=== PATIENT | male | born 1935 | race Caucasian/White ===

== ENCOUNTER → 2018-10-30 | Outpatient (CLI) | payer MEDICARE, OTHER ==
[~2018-10-30] MED LIST: AMLO10TA7 PO; APIX2.5T PO; ASPI-586 PO; ATOR80TA76 PO; CETI10TA20 PO; CLOP75TA28 PO; DIGO250T15 PO; DILT240C90 PO; FLUT16SP22 NSEACH; FLUT1DIS28 IH; HCTZ; LISI10TA; LORA-405 PO; LOSA100T3 PO; LOSA50TA63 PO; LUBI24CA6; METO-370 PO; NITR-65 PO; NITR100C10 PO; OMEP20TA7 PO; POTA10TA36 PO; RT-ALBUINH IH; TAMS0.4C2 PO; TEST5GEL6; TESTOSTERONE TP; TRIA1CAP4 PO
[2018-10-30 12:11] LABS: BUN/CREATININE RATIO 15; CREATININE SERUM 1.03 MG/DL (0.60-1.30); GFR ESTIMATED > 60
--- NOTE | 2018-10-30 13:41 | Diagnostic Imaging Report ---
PROCEDURE: CT chest without contrast. TECHNIQUE: Multiple contiguous axial images were obtained through the chest without the use of intravenous contrast. Auto Exposure Controls were utilized during the CT exam to meet ALARA standards for radiation dose reduction. INDICATION: Asthma and COPD as well as pleural effusion. COMPARISON: Correlation is made with prior chest CT from 12/21/2015. FINDINGS: No definite axillary lymphadenopathy is seen. Hilar and mediastinal evaluation is somewhat limited due to lack of intravenous contrast. Normal-sized lymph nodes in the mediastinum are seen. There are coronary arterial calcifications present. No pericardial fluid is detected. There is a very small left pleural effusion. No right-sided pleural effusion is seen. Lungs are clear. No infiltrates are seen. No parenchymal nodules or masses are detected. Upper abdomen is unremarkable. IMPRESSION: Small left pleural effusion. The study is otherwise unremarkable. Dictated by: Dictated on workstation # [id number]
== END ==
LOC: RAD 11:43
PROVIDERS: ATTEND Nurse Practitioner Family
DX: J90 Pleural effusion, not elsewhere classified (principal); J30.9 Allergic rhinitis, unspecified; J44.9 Chronic obstructive pulmonary disease, unspecified; E66.9 Obesity, unspecified
CPT/HCPCS: 36415; 71250; 82565; 84520

== ENCOUNTER → 2018-12-21 | Outpatient (CLI) | payer MEDICARE, OTHER ==
[~2018-12-21] MED LIST changes: +RT-ALBUTEROL SULF 2.5 MG/3 ML PRE-MIX VIAL INH ONE
== END ==
LOC: RT 12:29
PROVIDERS: ATTEND Nurse Practitioner Family
DX: J44.9 Chronic obstructive pulmonary disease, unspecified (principal); E66.9 Obesity, unspecified; J90 Pleural effusion, not elsewhere classified; J30.9 Allergic rhinitis, unspecified
CPT/HCPCS: 94060; 94726; 94729

== ENCOUNTER → 2019-03-30 | Outpatient (CLI) | payer MEDICARE ==
[~2019-03-30] MED LIST changes: -RT-ALBUTEROL SULF 2.5 MG/3 ML PRE-MIX VIAL INH ONE
== END ==
LOC: RAD 13:41
PROVIDERS: ATTEND Internal Medicine Cardiovascular Disease
DX: I70.213 Atherosclerosis of native arteries of extremities with intermittent claudication, bilateral legs (principal); I25.10 Atherosclerotic heart disease of native coronary artery without angina pectoris; I65.29 Occlusion and stenosis of unspecified carotid artery; E78.5 Hyperlipidemia, unspecified; I10 Essential (primary) hypertension; I48.0 Paroxysmal atrial fibrillation
CPT/HCPCS: 93923

== ENCOUNTER → 2020-01-11 | Outpatient (CLI) | payer MEDICARE ==
[~2020-01-11] MED LIST changes: -CETI10TA20 PO; +CETI10TA21 PO; -METO-370 PO; +METO50TA7 PO
== END ==
LOC: RAD 12:15
PROVIDERS: ATTEND Nurse Practitioner Family
DX: J90 Pleural effusion, not elsewhere classified (principal); I48.0 Paroxysmal atrial fibrillation; J30.9 Allergic rhinitis, unspecified; J44.9 Chronic obstructive pulmonary disease, unspecified

== ENCOUNTER 2020-06-22 11:26 | Inpatient (IN) | payer MEDICARE ==
[~2020-06-22] VITALS: Ht 172.7 cm; Wt 81.6 kg
[~2020-06-22 11:26] MED LIST changes: +AMLO-251 PO; -AMLO10TA7 PO; -CETI10TA21 PO; +CETI10TA49 PO
[2020-06-22 12:27] LABS: BASOPHILS % (AUTO) 0 % (0-10); EOSINOPHILS % (AUTO) 0 % (0-10); HEMATOCRIT 38 % (40-54); HEMOGLOBIN 12.6 g/dL (13.3-17.7); LYMPHOCYTES # (AUTO) 0.6 10^3/uL (1.0-4.0); LYMPHOCYTES % (AUTO) 11 % (12-44); MEAN CORPUSCULAR HEMOGLOBIN 29 pg (25-34); MEAN CORPUSCULAR HGB CONC 34 g/dL (32-36); MEAN CORPUSCULAR VOLUME 87 fL (80-99); MEAN PLATELET VOLUME 10.6 fL (9.0-12.2); MONOCYTES # (AUTO) 0.3 10^3/uL (0.0-1.0); MONOCYTES % (AUTO) 6 % (0-12); NEUTROPHILS # (AUTO) 4.6 10^3/uL (1.8-7.8); NEUTROPHILS % (AUTO) 83 % (42-75); PLATELET COUNT 155 10^3/uL (130-400); WHITE BLOOD COUNT 5.6 10^3/uL (4.3-11.0)
[2020-06-22 12:28] LABS: BILIRUBIN,URINE NEGATIVE (NEGATIVE); CLARITY,URINE CLEAR; COLOR,URINE YELLOW; GLUCOSE, URINE (UA) NEGATIVE (NEGATIVE); KETONES,URINE 1+ (NEGATIVE); LEUKOCYTE ESTERASE ,URINE NEGATIVE (NEGATIVE); NITRITE,URINE NEGATIVE (NEGATIVE); PROTEIN,URINE 2+ (NEGATIVE)
[2020-06-22 12:35] LABS: BACTERIA,URINE FEW /HPF; RBC,URINE 0-2 /HPF; SQUAMOUS EPITHELIAL CELL,UR 0-2 /HPF; WBC,URINE 0-2 /HPF
[2020-06-22 12:35] LABS: ALBUMIN 4.1 GM/DL (3.2-4.5); CHLORIDE 101 MMOL/L (98-107)
[2020-06-22 12:36] LABS: POTASSIUM 3.3 MMOL/L (3.6-5.0); SODIUM 137 MMOL/L (135-145)
[2020-06-22 12:37] LABS: CALCIUM 8.7 MG/DL (8.5-10.1)
[2020-06-22 12:38] LABS: GLUCOSE 138 MG/DL (70-105); INR 1.2 (0.8-1.4); PROTHROMBIN TIME PATIENT 15.4 SEC (12.2-14.7); TOTAL PROTEIN 7.6 GM/DL (6.4-8.2)
[2020-06-22 12:39] LABS: CARBON DIOXIDE 21 MMOL/L (21-32)
[2020-06-22 12:40] LABS: BILIRUBIN,TOTAL 0.7 MG/DL (0.1-1.0)
[2020-06-22 12:41] LABS: ALKALINE PHOSPHATASE 92 U/L (40-136)
[2020-06-22 12:42] LABS: CREATININE SERUM 1.03 MG/DL (0.60-1.30); GFR ESTIMATED > 60
[2020-06-22 12:43] LABS: BUN/CREATININE RATIO 17
[2020-06-22 12:44] LABS: ALANINE AMINOTRANSFERASE 16 U/L (0-55)
[2020-06-22] MEDS ORDERED: CEFEPIME INJECTION 2,000 MG in WATER (STERILE) FOR INJECTION 20 ML IV ONE (14:15)
--- NOTE | 2020-06-22 14:41 | ED Respiratory ---
General Chief Complaint: Respiratory Problems Stated Complaint: WEAK/COUGHING UP BLOOD/ STOMACH PROBLEMS Nursing Triage Note: Ambulatory to room 9. Pt reports coughing up blood and mucous for three days. Pt denies diarrhea aor vomiting and nausea. Pt reports no appetite. Pt reports SOB with exertion. Pt denies pain. Pt reports cough is owrse in the morning. Pt reports testing negative for COVID two weeks ago. Source: patient Exam Limitations: no limitations History of Present Illness Date Seen by Provider: Jun 22, 2020 Time Seen by Provider: 11:28 Initial Comments This 85-year-old gentleman presents to the emergency room with complaints of cough, weakness, hemoptysis consisting of a pea-sized clot, loss of appetite, shortness of breath with exertion and upset stomach for 2 or 3 days. He was at a small family gathering for [employer] and his daughter developed Covid shortly thereafter. He believes that was his exposure. His rapid Covid test is positive today oxygen saturation is 88% on room air during assessment. He has significant comorbidities including diabetes, heart disease, and COPD. He sees Dr. Lai for his COPD. His primary care provider was Dr. Becker and he currently has no primary care provider. Allergies and Home Medications Allergies Coded Allergies: Iodine and Iodide Containing Produc (Verified Allergy, Unknown, 06/22/20) itching and swelling Home Medications Albuterol Sulfate 18 Gm Hfa.aer.ad, 2 PUFF IH Q4H PRN for SHORTNESS OF BREATH, (Reported) Apixaban 2.5 Mg Tablet, 2.5 MG PO BID, (Reported) Atorvastatin Calcium 80 Mg Tablet, 80 MG PO HS, (Reported) Cetirizine HCl 10 Mg Tablet, 10 MG PO DAILY PRN for ALLERGIES, (Reported) Clopidogrel Bisulfate 75 Mg Tablet, 75 MG PO DAILY, (Reported) Digoxin 250 Mcg Tablet, 0.25 MG PO DAILY Prescribed by: MITZI FIGUEROA on 01/04/16 0840 Diltiazem HCl 240 Mg Cap.er.24h, 240 MG PO DAILY, (Reported) Fluticasone Propionate 16 Gm [place].susp, 1 SPRAY NSEACH DAILY PRN for ALLERGIES, (Reported) Tamsulosin HCl 0.4 Mg Cap.er.24h, 0.4 MG PO DAILY@1700, (Reported) Patient Home Medication List Home Medication List Reviewed: Yes Review of Systems Review of Systems Constitutional: see HPI EENTM: no symptoms reported Respiratory: see HPI Cardiovascular: no symptoms reported Gastrointestinal: see HPI Genitourinary: no symptoms reported Musculoskeletal: no symptoms reported Skin: no symptoms reported Psychiatric/Neurological: No Symptoms Reported Hematologic/Lymphatic: No Symptoms Reported Immunological/Allergic: no symptoms reported Past Ibfruzm-Kdukuc-Enfcxr Hx Patient Social History Alcohol Use: Denies Use Recreational Drug Use: No Smoking Status: Never a Smoker Type Used: Cigarettes Recent Foreign Travel: No Contact w/Someone Who Travel: No Recent Infectious Disease Expo: No Recent Hopitalizations: No Immunizations Up To Date Date of Pneumonia Vaccine: Mar 19, 2015 Date of Influenza Vaccine: Apr 18, 2016 Seasonal Allergies Seasonal Allergies: Yes Past Medical History Surgeries: Yes (BILAT TKR, hands) Coronary Stent, Gallbladder, Orthopedic, Vasectomy Respiratory: Yes (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) COPD Cardiac: Yes (stent) Coronary Artery Disease, Heart Attack, High Cholesterol, Hypertension Neurological: No Reproductive Disorders: No Sexually Transmitted Disease: No HIV/AIDS: No Benign Prostatic Hyperpl, Bladder Infection, Renal Failure Gastrointestinal: Yes (HEMMACULT POSITIVE) Chronic Constipation Musculoskeletal: No Endocrine: No Diabetes, Non-Insulin dep Loss of Vision: Bilateral Hearing Impairment: Denies Cancer: No Psychosocial: No Integumentary: No Blood Disorders: Yes (MILD ANEMIA) Adverse Reaction/Blood Tranf: No Family Medical History Aortic stenosis 19 FATHER FH: brain cancer G8 BROTHER FH: lung cancer G8 BROTHER FH: stroke 19 MOTHER Hypertension 19 MOTHER Physical Exam Vital Signs - First Documented 06/22/20 06/22/20 11:50 11:51 Temp 36.9 Pulse 110 Resp 20 B/P (MAP) 163/75 (104) Pulse Ox 88 O2 Delivery Room Air O2 Flow Rate 2.00 Capillary Refill : Less Than 3 Seconds Height: 5'8.00" Weight: 190lbs. 0.6oz. 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 tested, no motor/sensory deficits, alert, normal mood/affect, oriented x 3 Skin: normal color, warm/dry Focused Exam Lactate Level 06/22/20 12:10: Lactic Acid Level 1.09 Lactic Acid Level Laboratory Tests Test 06/22/20 12:10 Lactic Acid Level 1.09 MMOL/L (0.50-2.00) Progress/Results/Core Measures Suspected Sepsis Recent Fever Within 48 Hours: No Infection Criteria Present: None New/Unexplained Altered Menta: No Sepsis Screen: No Definite Risk SIRS Temperature: Pulse: 110 Respiratory Rate: 20 Laboratory Tests 06/22/20 12:10: White Blood Count 5.6 Blood Pressure 163 /75 Mean: 104 06/22/20 12:10: Lactic Acid Level 1.09 Laboratory Tests 06/22/20 12:10: Creatinine 1.03, INR Comment 1.2, Platelet Count 155, Total Bilirubin 0.7 Results/Orders Lab Results Laboratory Tests Test 06/22/20 12:10 06/22/20 12:15 06/22/20 12:20 Range/Units White Blood Count 5.6 4.3-11.0 10^3/uL Red Blood Count 4.34 4.30-5.52 10^6/uL Hemoglobin 12.6 L 13.3-17.7 g/dL Hematocrit 38 L 40-54 % Mean Corpuscular Volume 87 80-99 fL Mean Corpuscular Hemoglobin 29 25-34 pg Mean Corpuscular Hemoglobin Concent 34 32-36 g/dL Red Cell Distribution Width 13.3 10.0-14.5 % Platelet Count 155 130-400 10^3/uL Mean Platelet Volume 10.6 9.0-12.2 fL Immature Granulocyte % (Auto) 0 % Neutrophils (%) (Auto) 83 H 42-75 % Lymphocytes (%) (Auto) 11 L 12-44 % Monocytes (%) (Auto) 6 0-12 % Eosinophils (%) (Auto) 0 0-10 % Basophils (%) (Auto) 0 0-10 % Neutrophils # (Auto) 4.6 1.8-7.8 10^3/uL Lymphocytes # (Auto) 0.6 L 1.0-4.0 10^3/uL Monocytes # (Auto) 0.3 0.0-1.0 10^3/uL Eosinophils # (Auto) 0.0 0.0-0.3 10^3/uL Basophils # (Auto) 0.0 0.0-0.1 10^3/uL Immature Granulocyte # (Auto) 0.0 0.0-0.1 10^3/uL Prothrombin Time 15.4 H 12.2-14.7 SEC INR Comment 1.2 0.8-1.4 Activated Partial Thromboplast Time 37 H 24-35 SEC D-Dimer 1.04 H 0.00-0.49 UG/ML Sodium Level 137 135-145 MMOL/L Potassium Level 3.3 L 3.6-5.0 MMOL/L Chloride Level 101 98-107 MMOL/L Carbon Dioxide Level 21 21-32 MMOL/L Anion Gap 15 H 5-14 MMOL/L Blood Urea Nitrogen 17 7-18 MG/DL Creatinine 1.03 0.60-1.30 MG/DL Estimat Glomerular Filtration Rate > 60 BUN/Creatinine Ratio 17 Glucose Level 138 H 70-105 MG/DL Lactic Acid Level 1.09 0.50-2.00 MMOL/L Calcium Level 8.7 8.5-10.1 MG/DL Corrected Calcium 8.6 8.5-10.1 MG/DL Total Bilirubin 0.7 0.1-1.0 MG/DL Aspartate Amino Transf (AST/SGOT) 23 5-34 U/L Alanine Aminotransferase (ALT/SGPT) 16 0-55 U/L Alkaline Phosphatase 92 40-136 U/L Lactate Dehydrogenase 264 H 125-220 U/L C-Reactive Protein High Sensitivity 12.96 H 0.00-0.50 MG/DL Total Protein 7.6 6.4-8.2 GM/DL Albumin 4.1 3.2-4.5 GM/DL Procalcitonin 1.87 H <0.10 NG/ML Urine Color YELLOW Urine Clarity CLEAR Urine pH 6.0 5-9 Urine Specific Fitzpatrick >=1.030 1.016-1.022 Urine Protein 2+ H NEGATIVE Urine Glucose (UA) NEGATIVE NEGATIVE Urine Ketones 1+ H NEGATIVE Urine Nitrite NEGATIVE NEGATIVE Urine Bilirubin NEGATIVE NEGATIVE Urine Urobilinogen 1.0 < = 1.0 MG/DL Urine Leukocyte Esterase NEGATIVE NEGATIVE Urine RBC (Auto) TRACE-I NEGATIVE Urine RBC 0-2 /HPF Urine WBC 0-2 /HPF Urine Squamous Epithelial Cells 0-2 /HPF Urine Crystals NONE /LPF Urine Bacteria FEW H /HPF Urine Casts NONE /LPF Urine Mucus MODERATE H /LPF Urine Culture Indicated NO Coronavirus 2019 ([place]) Positive H Negative Micro Results Microbiology 06/22/20 Influenza Types A,B Antigen ([place]) - Final, Complete My Orders Orders - GARY FRENCH MD Cbc With Automated Diff (06/22/20 11:28) Comprehensive Metabolic Panel (06/22/20 11:28) Hs C Reactive Protein (06/22/20 11:28) Protime With Inr (06/22/20 11:28) Partial Thromboplastin Time (06/22/20 11:28) Ua Culture If Indicated (06/22/20 11:28) Ed Iv/Invasive Line Start (06/22/20 11:28) Influenza A And B Antigens (06/22/20 13:14) Covid 19 Inhouse Test (06/22/20 12:20) Fibrin Degradation Products (06/22/20 13:25) Procalcitonin (Pct) (06/22/20 13:25) Hs C Reactive Protein (06/22/20 13:25) LDH (06/22/20 13:25) Chest 1 View, Ap/Pa Only (06/22/20 14:13) Cefepime Injection (Maxipime Injection) (06/22/20 14:15) Blood Culture (06/22/20 14:18) Sputum Culture (06/22/20 14:18) Vital Signs Adult Sepsis Patie Q15M (06/22/20 14:18) O2 (06/22/20 14:18) Remove Rings In Anticipation O (06/22/20 14:18) Lactic Acid Analyzer (06/22/20 14:18) Dexamethasone Injection (Decadron Inje (06/22/20 14:30) Vital Signs/I&O 06/22/20 06/22/20 11:50 11:51 Temp 36.9 Pulse 110 Resp 20 B/P (MAP) 163/75 (104) Pulse Ox 88 95 O2 Delivery Room Air Nasal Cannula O2 Flow Rate 2.00 Capillary Refill : Less Than 3 Seconds Blood Pressure Mean: 104 Progress Note : Progress Note Oxygen saturation was easily resuscitated with nasal cannula. Dexamethasone was ordered. Case was discussed with Dr. Hirsch who also requested cefepime. There were patchy infiltrates on the chest x-ray with an elevation of procalcitonin prompting the addition of antibiotics. Dr. Lai was also consulted. Diagnostic Imaging Diagonstic Imaging: Xray Plain Films/CT/US/NM/MRI: chest Comments Chest x-ray viewed by me and report reviewed. See report below: NAME: RADHA ECHOLS [facility] REC#: [id number] PT STATUS: REG ER : 1935 PHYSICIAN: GARY FRENCH MD ADMIT DATE: 06/22/20/ER Draft Date of Exam:06/22/20 CHEST 1 VIEW, AP/PA ONLY INDICATION: COVID positive patient Frontal chest obtained at 03:03 p.m. There is cardiomegaly. There is mild patchy infiltrate in the right medial base as well as minimal left perihilar infiltrate. There is no pneumothorax or pleural fluid. IMPRESSION: Mild patchy infiltrate and right medial base with mild left perihilar infiltrate. Underlying cardiomegaly. No pneumothorax or pleural fluid. Dictated on workstation # [id number] Dict: 06/22/20 1504 Trans: 06/22/20 1507 [facility] [id number] Interpreted by: ALLAN NAVA MD Departure Communication (Admissions) Time/Spoke to Admitting Phy: 14:15 Dr. Hirsch Time/Spoke to Consulting Phy: 14:18 Dr. Lai Impression Primary Impression: COVID-19 Additional Impressions: Hypoxia Hemoptysis Disposition: ADMITTED INPATIENT Condition: Improved Admissions Decision to Admit Reason: Admit from ER (General) Decision to Admit/Date: Jun 22, 2020 Time/Decision to Admit Time: 14:00 Departure-Patient Inst. Referrals: NO,LOCAL PHYSICIAN (PCP/Family) Primary Care Physician GARY FRENCH MD Jun 22, 2020 14:41
--- NOTE | 2020-06-22 14:43 | NUR ---
Called house sup for bed.
--- NOTE | 2020-06-22 15:08 | Diagnostic Imaging Report ---
INDICATION: COVID positive patient Frontal chest obtained at 03:03 p.m. There is cardiomegaly. There is mild patchy infiltrate in the right medial base as well as minimal left perihilar infiltrate. There is no pneumothorax or pleural fluid. IMPRESSION: Mild patchy infiltrate and right medial base with mild left perihilar infiltrate. Underlying cardiomegaly. No pneumothorax or pleural fluid. Dictated by: Dictated on workstation # [id number]
--- NOTE | 2020-06-22 15:59 | NUR ---
Attempted to call report; no answer.
--- NOTE | 2020-06-22 16:12 | NUR ---
Attempted to call report; no answer.
--- NOTE | 2020-06-22 16:58 | NUR ---
Pt's IV is 20g in LAC, not RAC as charted.
[2020-06-22 17:25] VITALS: BP 158/72
[2020-06-22] MEDS ORDERED: CATHETER FLUSH 10 ML SYR IV PRN (17:30)
--- NOTE | 2020-06-22 19:05 | Diagnostic Imaging Report ---
PROCEDURE: CT chest without contrast. TECHNIQUE: Multiple contiguous axial images were obtained through the chest without the use of intravenous contrast. Auto Exposure Controls were utilized during the CT exam to meet ALARA standards for radiation dose reduction. INDICATION: Shortness of breath. COVID positive. Productive cough. FINDINGS: There has been development of scattered 5 lobe groundglass infiltrates majority of which are peripheral in distribution. The lungs are well aerated. Aorta is atherosclerotic without aneurysm. No pleural effusions or pericardial effusion. Dense calcification of coronary arteries. No mediastinal or hilar adenopathy of pathologic size demonstrated. No blastic or lytic bony changes. IMPRESSION: 1. Development of 5 lobe patchy predominantly groundglass infiltrates. This is consistent with COVID pneumonia. These findings have developed since previous CT scan. Dictated by: Dictated on workstation # [id number]
[2020-06-22] MEDS: APIXABAN 2.5 MG (ELIQUIS) TABLET PO SCH (20:09)
[2020-06-22] MEDS: LACTATED RINGERS 1,000 ML IV SCH (20:09)
[2020-06-22 20:25] VITALS: BP 165/73
[2020-06-22] MEDS: inSUlin ASPART (NovoLOG) 1 UNIT/0.01 ML (CHARGE PER UNIT) SC SCH (20:31)
[2020-06-23] VITALS (8 sets, daily range): BP systolic 119–177; BP diastolic 59–78
--- NOTE | 2020-06-23 03:50 | NUR ---
ALB INHALER 4 PUFFS Q4 and Q2 PRN. AEROBIKA QID and PRN. INITIATE O2 to keep sats above 90%. RT to reassess or reevaulate in 72 hours or as needed. Addendum: 06/23/20 at 0351 by SAM MIRANDA RT Amended: Links added.
[2020-06-23] MEDS: CEFEPIME 1,000 MG/SWFI 10 ML IV PUSH IV SCH ×8 (05:50→23:00)
[2020-06-23] MEDS: LACTATED RINGERS 1,000 ML IV SCH ×2 (05:51→10:19)
[2020-06-23] MEDS: inSUlin ASPART (NovoLOG) 1 UNIT/0.01 ML (CHARGE PER UNIT) SC SCH ×4 (05:55→20:17)
[2020-06-23] MEDS: RT-ALBUTEROL INHALER HFA (VENTOLIN HFA) 18 GM IH SCH ×5 (06:59→22:50)
[2020-06-23 08:10] LABS: BASOPHILS % (AUTO) 0 % (0-10); EOSINOPHILS % (AUTO) 0 % (0-10); HEMATOCRIT 37 % (40-54); HEMOGLOBIN 12.2 g/dL (13.3-17.7); LYMPHOCYTES # (AUTO) 0.5 10^3/uL (1.0-4.0); LYMPHOCYTES % (AUTO) 6 % (12-44); MEAN CORPUSCULAR HEMOGLOBIN 28 pg (25-34); MEAN CORPUSCULAR HGB CONC 33 g/dL (32-36); MEAN CORPUSCULAR VOLUME 86 fL (80-99); MEAN PLATELET VOLUME 10.6 fL (9.0-12.2); MONOCYTES # (AUTO) 0.4 10^3/uL (0.0-1.0); MONOCYTES % (AUTO) 4 % (0-12); NEUTROPHILS # (AUTO) 8.3 10^3/uL (1.8-7.8); NEUTROPHILS % (AUTO) 90 % (42-75); PLATELET COUNT 164 10^3/uL (130-400); WHITE BLOOD COUNT 9.2 10^3/uL (4.3-11.0)
[2020-06-23] MEDS: APIXABAN 2.5 MG (ELIQUIS) TABLET PO SCH ×2 (08:25→20:18)
[2020-06-23 08:31] LABS: ALANINE AMINOTRANSFERASE 17 U/L (0-55); ALBUMIN 3.9 GM/DL (3.2-4.5); ALKALINE PHOSPHATASE 91 U/L (40-136); BILIRUBIN,TOTAL 0.5 MG/DL (0.1-1.0); BUN/CREATININE RATIO 20; CALCIUM 8.8 MG/DL (8.5-10.1); CARBON DIOXIDE 23 MMOL/L (21-32); CHLORIDE 101 MMOL/L (98-107); CREATININE SERUM 0.98 MG/DL (0.60-1.30); GFR ESTIMATED > 60; GLUCOSE 177 MG/DL (70-105); POTASSIUM 3.8 MMOL/L (3.6-5.0); SODIUM 136 MMOL/L (135-145); TOTAL PROTEIN 7.6 GM/DL (6.4-8.2)
[2020-06-23 08:40] LABS: BAND NEUTROPHILS 4 %; BASOPHILS % (MANUAL) 0 %; EOSINOPHILS % (MANUAL) 0 %; LYMPHOCYTES % (MANUAL) 5 %; MONOCYTES % (MANUAL) 4 %; NEUTROPHILS % (MANUAL) 87 %; RBC MORPH NORMAL
[2020-06-23] MEDS ORDERED: GABA-486 PO (10:55)
[2020-06-23] MEDS ORDERED: UBID10CA5 PO (10:55)
[2020-06-23] MEDS ORDERED: DOXA4TAB2 PO (10:55)
[2020-06-23] MEDS ORDERED: VIT1TABL26 PO (10:55)
[2020-06-23] MEDS ORDERED: METF-397 PO (10:55)
[2020-06-23] MEDS ORDERED: RT-ALBUINH INH (10:55)
[2020-06-23] MEDS ORDERED: DOCU100T2 PO (10:55)
[2020-06-23] MEDS ORDERED: DIGO250T3 PO (10:55)
[2020-06-23] MEDS ORDERED: DILT-10 PO (10:55)
[2020-06-23] MEDS ORDERED: APIX5TAB PO (10:55)
--- NOTE | 2020-06-23 10:57 | NUR ---
SPOKE WITH PT (CALLED ROOM PHONE) ALSO CALLED THE [facility] TO COMPLETE THE MED REC METFORMIN 500MG LAST FILLED 11-25-2019 #90/90DS- ACCORDING TO THE PT HE DOES NOT TAKE METFORMIN EVERYDAY, INSTEAD HE CHECKS HIS BLOOD SUGAR AND IF IT IS ABOVE 150 HE WILL TAKE A DOSE. THE DIRECTIONS PER THE [facility] ARE " 1 TAB IN THE MORNING' NOT PRN GABAPENTIN 100MG- THE [facility] DIRECTIONS ARE 1 CAP TID HOWEVER PT SAYS HE DOES NOT TAKE IT ALL THE TIME AND WHEN HE NEEDS IT HE TAKES 1-2 CAPS UP TO THREE TIMES DAILY PT MENTIONED THAT HE TAKES ATORVASTATIN, HOWEVER INFORMATION THAT I RECIEVED FROM THE GA SAYS THE LAST TIME THEY FILLED IT WAS 07-23-2018 #45/90DS (40MG WAS PRESCRIBED BUT HE WAS TO THE TAB DAILY). WHEN I ASKED THE PT ABOUT THE PAST DUE FILL DATE I WAS TOLD HIS PROVIDER CUT HIS DOSE DOWN AGAIN TO 1/4 TAB (TO EQUAL 10MG) DAILY AND HE STILL HAD SOME LEFT. THIS WOULD STILL MAKE THE FILL PAST DUE EVEN WITH THE NEW DIRECTIONS. DUE TO THE PRESCRIPTION BEING OUTDATED I DID NOT INCLUDE THIS ON THE MED REC OTC MEDS: OCUVITE COQ10 DOCUSATE
--- NOTE | 2020-06-23 13:57 | NUR ---
"RD ASSESSMENT PMHx: COPD; CAD; hypercholesterolemia; HTN; BPH; renal failure; chronic constipation; DM; PT INTERACTION: Note pt is currently in COVID isolation, per chart review. Note all diet information for nutrition assessment is per Jennyfer RN, or per chart review. Jennyfer states current appetite appears good. Note avg PO intake 100% x2meal, per chart review. Jennyfer states no issues with nausea, vomiting, constipation, or diarrhea that she is aware of. Note no BM has been recorded, and note pt not currently on bowel regimen per chart review. Note unable to determine recent wt hx, per chart review. Note unable to determine current level of DM management, and unable to determine recent HbA1c, per chart review. Est. kcal needs: [id number] kcal | 15-20 kcal/kg Est. Pro needs: 72-90 g Pro | 0.8-1.0 g Pro/kg PES STATEMENT: Given current PO intake, no nutrition diagnosis at this time (NO-1.1). INTERVENTION: Continue with current diet order of CHO 60g/m 3snack diet. DC current supplementation order of Ensure Enlive with meals TID. Pt is consuming 100% of meals. Did not offer diet education on DM management d/t isolation precautions. Will continue to follow and reassess as pt needs, intake, and status change. Fatou CARDENAS MS RD LD [phone] cell"
[2020-06-23] MEDS ORDERED: REMDESIVIR INJ 200 MG in NS (IVPB) 210 ML IV ONE (15:00)
--- NOTE | 2020-06-23 15:03 | History & Physical-Hospitalist ---
History of Present Illness HPI/Chief Complaint Jaspreet Knutson is an 85-year-old male with past medical history of HTN, COPD, CAD, A. fib on Eliquis, BPH, who presented with shortness of breath. He has been sick for a couple weeks. He has had shortness of breath and cough. He reports sputum production. He has had body aches. He denies chest pain. He denies abdominal pain. He reports nausea. He denies diarrhea. He had been at a [employer] and one of his relatives became sick shortly after. He believes that is when he is exposed. Source: patient Exam Limitations: no limitations Date Seen 06/23/20 Time Seen by a Provider: 10:10 Attending Physician Efren Estrada MD PCP No,Local Physician Referring Physician Date of Admission Jun 22, 2020 at 14:32 Home Medications & Allergies Home Medications Reviewed patient Home Medication Reconciliation performed by pharmacy medication reconciliations automotive service technician and/or nursing. Patients Allergies have been reviewed. Allergies Allergies Coded Allergies Iodine and Iodide Containing Produc (Verified Allergy, Unknown, 06/22/20) itching and swelling Past Mqhqcdc-Mntpdl-Twenqe Hx Past Med/Social Hx: Reviewed Nursing Past Med/Soc Hx Patient Social History Alcohol Use: Denies Use Recreational Drug Use: No Smoking Status: Never a Smoker Type Used: Cigarettes Recent Foreign Travel: No Contact w/other who traveled: No Recent Hopitalizations: No Recent Infectious Disease Expo: No Immunizations Up To Date Date of Pneumonia Vaccine: Apr 02, 2018 Date of Influenza Vaccine: Mar 18, 2020 Seasonal Allergies Seasonal Allergies: Yes Past Medical History Surgeries: Coronary Stent, Gallbladder, Orthopedic, Vasectomy Respiratory: COPD, Pulmonary Fibrosis, Sleep Apnea Cardiac: Coronary Artery Disease, Heart Attack, High Cholesterol, Hypertension Reproductive: No Sexually Transmitted Disease: No HIV/AIDS: No Genitourinary: Benign Prostatic Hyperpl, Bladder Infection, Renal Failure Gastrointestinal: Chronic Constipation Endocrine: Diabetes, Non-Insulin dep Loss of Vision: Bilateral Hearing Impairment: Denies History of Blood Disorders: Yes (MILD ANEMIA) Adverse Reaction to Blood Gandhi: No Family History Aortic stenosis 19 FATHER FH: brain cancer G8 BROTHER FH: lung cancer G8 BROTHER FH: stroke 19 MOTHER Hypertension 19 MOTHER Review of Systems Constitutional: fever, weakness EENTM: no symptoms reported Respiratory: cough, phlegm, short of breath Cardiovascular: no symptoms reported Gastrointestinal: nausea Genitourinary: no symptoms reported Musculoskeletal: no symptoms reported Skin: no symptoms reported Psychiatric/Neurological: No Symptoms Reported Physical Exam Physical Exam Vital Signs Vital Signs - First Documented 06/22/20 06/22/20 06/23/20 11:50 11:51 03:23 Temp 36.9 Pulse 110 Resp 20 B/P (MAP) 163/75 (104) Pulse Ox 88 O2 Delivery Room Air O2 Flow Rate 2.00 FiO2 21 Capillary Refill : Less Than 3 Seconds Height, Weight, BMI Height: 5'8.00" Weight: 190lbs. 0.6oz. 86.365637zp; 30.14 BMI Method:Stated General Appearance: No Apparent Distress HEENT: PERRL/EOMI, Pharynx Normal Neck: Normal Inspection, Supple Respiratory: Lungs Clear, Normal Breath Sounds, No Respiratory Distress Cardiovascular: Regular Rate, Rhythm, No Edema, No Murmur Gastrointestinal: Normal Bowel Sounds, Non Tender, Soft Extremity: Normal Inspection, Non Tender, No Pedal Edema Neurologic/Psychiatric: Alert, Oriented x3, No Motor/Sensory Deficits, Normal Mood/Affect Skin: Normal Color, Warm/Dry Results Results/Procedures Labs Laboratory Tests 06/22/20 12:10 06/23/20 08:04 Patient resulted labs reviewed. Imaging: Reviewed Imaging Report Assessment/Plan Admission Diagnosis acute respiratory failure due to COVID-19 Admission Status: Inpatient Order (span 2 midnights) Reason for Inpatient Admission: Respiratory failure requiring oxygen Assessment and Plan Acute respiratory failure due to COVID-19 COPD with acute exacerbation Pneumonia COVID [place] positive CXR with patchy infiltrates CT Chest with diffuse groundglass appearance consistent with COVID Ddimer mildly elevated Continue Eliquis Procal elevated Started on Cefepime Started on Decadron Convalescent plasma ordered Supplemental oxygen as needed MAT protocol CAD Continue Plavix AFib Continue Diltiazem, Digoxin, and Eliquis HTN BPH Continue Doxazosin DVT prophylaxis: already receiving therapeutic anticoagulation Diagnosis/Problems Diagnosis/Problems (1) Acute respiratory failure due to COVID-19 Status: Acute (2) COPD with acute lower respiratory infection Status: Acute (3) PNA (pneumonia) Status: Acute (4) CAD (coronary artery disease) Status: Chronic (5) A-fib Status: Chronic (6) BPH (benign prostatic hyperplasia) Status: Chronic Clinical Quality Measures DVT/VTE Risk/Contraindication: Risk Factor Score Per Nursin RFS Level Per Nursing on Admit: 3=High EFREN ESTRADA MD Jun 23, 2020 15:03
--- NOTE | 2020-06-23 15:22 | Diagnostic Imaging Report ---
PROCEDURE: US Venous Lower Ext Boyd. TECHNIQUE: Multiple real-time grayscale images were obtained over the lower extremities in various projections, bilaterally. Additional duplex Doppler and color Doppler images were also obtained. INDICATION: Elevated D-dimer. There is no evidence of right or left lower extremity DVT. Both lower extremity venous systems demonstrate normal compressibility with normal response to augmentation and Valsalva. No fluid collection or mass is detected. IMPRESSION: No evidence of right or left lower extremity DVT. Dictated by: Dictated on workstation # [id number]
[2020-06-23] MEDS: doxAzosin 2 MG (CARDURA) TAB PO SCH (20:17)
[2020-06-23] MEDS: DOCUSATE SODIUM 100 MG (COLACE) CAP PO SCH (20:17)
[2020-06-24] VITALS (10 sets, daily range): BP systolic 119–150; BP diastolic 56–87
[2020-06-24] MEDS: ACETAMINOPHEN 500 MG TAB (TYLENOL) PO PRN ×2 (01:15→23:15)
[2020-06-24] MEDS: RT-ALBUTEROL INHALER HFA (VENTOLIN HFA) 18 GM IH SCH ×6 (01:18→22:13)
[2020-06-24] MEDS ORDERED: HALOPERIDOL 5 MG/ML (HALDOL) VIAL ONE (02:21)
[2020-06-24] MEDS ORDERED: HALOPERIDOL 5 MG/ML (HALDOL) VIAL IM ONE (02:30)
[2020-06-24] MEDS: CEFEPIME 1,000 MG/SWFI 10 ML IV PUSH IV SCH ×6 (05:15→17:26)
[2020-06-24 05:16] LABS: BASOPHILS % (AUTO) 0 % (0-10); EOSINOPHILS % (AUTO) 0 % (0-10); HEMATOCRIT 32 % (40-54); HEMOGLOBIN 10.7 g/dL (13.3-17.7); LYMPHOCYTES # (AUTO) 0.6 10^3/uL (1.0-4.0); LYMPHOCYTES % (AUTO) 6 % (12-44); MEAN CORPUSCULAR HEMOGLOBIN 29 pg (25-34); MEAN CORPUSCULAR HGB CONC 34 g/dL (32-36); MEAN CORPUSCULAR VOLUME 86 fL (80-99); MEAN PLATELET VOLUME 11.2 fL (9.0-12.2); MONOCYTES # (AUTO) 0.4 10^3/uL (0.0-1.0); MONOCYTES % (AUTO) 4 % (0-12); NEUTROPHILS # (AUTO) 9.6 10^3/uL (1.8-7.8); NEUTROPHILS % (AUTO) 90 % (42-75); PLATELET COUNT 170 10^3/uL (130-400); WHITE BLOOD COUNT 10.6 10^3/uL (4.3-11.0)
[2020-06-24 05:32] LABS: ALBUMIN 3.5 GM/DL (3.2-4.5)
[2020-06-24 05:33] LABS: CHLORIDE 105 MMOL/L (98-107); POTASSIUM 3.6 MMOL/L (3.6-5.0); SODIUM 138 MMOL/L (135-145)
[2020-06-24 05:34] LABS: CALCIUM 8.6 MG/DL (8.5-10.1)
[2020-06-24 05:35] LABS: GLUCOSE 171 MG/DL (70-105); TOTAL PROTEIN 6.7 GM/DL (6.4-8.2)
[2020-06-24 05:36] LABS: CARBON DIOXIDE 21 MMOL/L (21-32)
[2020-06-24 05:37] LABS: BILIRUBIN,TOTAL 0.4 MG/DL (0.1-1.0)
[2020-06-24 05:38] LABS: ALKALINE PHOSPHATASE 79 U/L (40-136); CREATININE SERUM 1.06 MG/DL (0.60-1.30); GFR ESTIMATED > 60
[2020-06-24 05:40] LABS: BUN/CREATININE RATIO 24
[2020-06-24 05:41] LABS: ALANINE AMINOTRANSFERASE 16 U/L (0-55)
[2020-06-24] MEDS: inSUlin ASPART (NovoLOG) 1 UNIT/0.01 ML (CHARGE PER UNIT) SC SCH ×4 (06:42→20:40)
[2020-06-24] MEDS ORDERED: UBIDECARENONE 10 MG PO SCH (09:00)
[2020-06-24] MEDS: DIGOXIN 0.25 MG (LANOXIN) TAB PO SCH (09:34)
[2020-06-24] MEDS: CLOPIDOGREL 75 MG (PLAVIX) TABLET PO SCH (09:34)
[2020-06-24] MEDS: doxAzosin 2 MG (CARDURA) TAB PO SCH ×2 (09:34→20:40)
[2020-06-24] MEDS: APIXABAN 2.5 MG (ELIQUIS) TABLET PO SCH (09:34)
[2020-06-24] MEDS: DOCUSATE SODIUM 100 MG (COLACE) CAP PO SCH ×2 (09:34→20:40)
--- NOTE | 2020-06-24 10:00 | NUR ---
PT FOUND TO BE 83% ON 2LHF WHILE RESTING IN BED. PT WAS TURNED UP TO 6L HF AND PLACED ON RIGHT SIDE. RT NOTIFIED DR ESTRADA NOTIFIED DURING PT ROUNDS
--- NOTE | 2020-06-24 12:27 | Progress Note - Hospitalist ---
Subjective HPI/CC On Admission Date Seen by Provider: Jun 24, 2020 Time Seen by Provider: 10:15 Jaspreet Knutson is an 85-year-old male with past medical history of HTN, COPD, CAD, A. fib on Eliquis, BPH, who presented with shortness of breath. He has been sick for a couple weeks. He has had shortness of breath and cough. He reports sputum production. He has had body aches. He denies chest pain. He denies abdominal pain. He reports nausea. He denies diarrhea. He had been at a [employer] and one of his relatives became sick shortly after. He believes that is when he is exposed. Subjective/Events-last exam He he says he is not feeling short of breath. He is not having fevers. He is a bit annoyed by his oxygen monitor beeping. I spoke with his daughter who states that his symptoms have only been present for a few days prior to his arrival, which was inconsistent with his previous statement. We will begin Remdesivir. Focused Exam Lactate Level 06/22/20 12:10: Lactic Acid Level 1.09 Objective Exam Vital Signs Vital Signs Date Time Temp Pulse Resp B/P (MAP) Pulse Ox O2 Delivery O2 Flow Rate FiO2 06/24/20 11:35 36.8 93 28 150/67 (94) 95 Vapotherm 25.00 70.00 06/24/20 10:35 70 Capillary Refill : Less Than 3 Seconds General Appearance: No Apparent Distress, Chronically ill Respiratory: Lungs Clear, Normal Breath Sounds, No Respiratory Distress Cardiovascular: Regular Rate, Rhythm, No Edema, No Murmur Gastrointestinal: Normal Bowel Sounds, Non Tender, Soft Extremity: Normal Inspection, Non Tender, No Pedal Edema Neurologic/Psychiatric: Alert, Oriented x3, No Motor/Sensory Deficits, Normal Mood/Affect Skin: Normal Color, Warm/Dry Results/Procedures Lab Laboratory Tests 06/24/20 05:05 Patient resulted labs reviewed. Imaging: Reviewed Imaging Report Assessment/Plan Assessment and Plan Assess & Plan/Chief Complaint Acute respiratory failure due to COVID-19 COPD with acute exacerbation Pneumonia Continue Decadron Begin Remdesivir Convalescent plasma ordered Continue Eliquis Continue Cefepime Oxygen requirement increasing, now needing Vapotherm MAT protocol CAD Continue Plavix AFib Continue Diltiazem, Digoxin, and Eliquis HTN BPH Continue Doxazosin DVT prophylaxis: already receiving therapeutic anticoagulation Diagnosis/Problems Diagnosis/Problems (1) Acute respiratory failure due to COVID-19 Status: Acute (2) COPD with acute lower respiratory infection Status: Acute (3) PNA (pneumonia) Status: Acute (4) CAD (coronary artery disease) Status: Chronic (5) A-fib Status: Chronic (6) BPH (benign prostatic hyperplasia) Status: Chronic Clinical Quality Measures DVT/VTE Risk/Contraindication: Risk Factor Score Per Nursin RFS Level Per Nursing on Admit: 3=High EFREN ESTRADA MD Jun 24, 2020 12:27
[2020-06-24] MEDS ORDERED: REMDESIVIR INJ 200 MG in NS (IVPB) 210 ML IV NR (12:30)
[2020-06-24] MEDS ORDERED: REMDESIVIR INJ 100 MG in NS (IVPB) 230 ML IV SCH (15:00)
--- NOTE | 2020-06-24 18:41 | NUR ---
PT 02 NOTED TO DROP TO 84% WHILE AMBULATING IN ROOM. VAPOTHERM SETTINGS 25L 65%. PT OXYGEN 92% AFTER FEW MINUTES OF RESTING.
[2020-06-24] MEDS: APIXABAN 5 MG (ELIQUIS) TABLET PO SCH (20:40)
[2020-06-24] MEDS ORDERED: APIXABAN 2.5 MG (ELIQUIS) TABLET PO SCH (21:00)
[2020-06-24] MEDS ORDERED: NS IV 500 ML 500 ML ONE (21:15)
[2020-06-25] MEDS: CEFEPIME 1,000 MG/SWFI 10 ML IV PUSH IV SCH ×10 (00:44→23:43)
[2020-06-25] MEDS: RT-ALBUTEROL INHALER HFA (VENTOLIN HFA) 18 GM IH SCH ×6 (02:34→20:39)
[2020-06-25 03:12] VITALS: BP 132/70
[2020-06-25] MEDS: inSUlin ASPART (NovoLOG) 1 UNIT/0.01 ML (CHARGE PER UNIT) SC SCH ×4 (05:23→20:39)
[2020-06-25 06:26] LABS: BASOPHILS % (AUTO) 0 % (0-10); EOSINOPHILS % (AUTO) 0 % (0-10); HEMATOCRIT 32 % (40-54); HEMOGLOBIN 10.6 g/dL (13.3-17.7); LYMPHOCYTES # (AUTO) 0.5 10^3/uL (1.0-4.0); LYMPHOCYTES % (AUTO) 8 % (12-44); MEAN CORPUSCULAR HEMOGLOBIN 29 pg (25-34); MEAN CORPUSCULAR HGB CONC 33 g/dL (32-36); MEAN CORPUSCULAR VOLUME 86 fL (80-99); MEAN PLATELET VOLUME 11.2 fL (9.0-12.2); MONOCYTES # (AUTO) 0.1 10^3/uL (0.0-1.0); MONOCYTES % (AUTO) 2 % (0-12); NEUTROPHILS # (AUTO) 5.4 10^3/uL (1.8-7.8); NEUTROPHILS % (AUTO) 90 % (42-75); PLATELET COUNT 182 10^3/uL (130-400)
[2020-06-25 06:44] LABS: ALBUMIN 3.4 GM/DL (3.2-4.5); CHLORIDE 102 MMOL/L (98-107); POTASSIUM 3.4 MMOL/L (3.6-5.0); SODIUM 137 MMOL/L (135-145)
[2020-06-25 06:45] LABS: CALCIUM 8.4 MG/DL (8.5-10.1)
[2020-06-25 06:46] LABS: GLUCOSE 132 MG/DL (70-105)
[2020-06-25 06:47] LABS: TOTAL PROTEIN 6.5 GM/DL (6.4-8.2)
[2020-06-25 06:48] LABS: BILIRUBIN,TOTAL 0.5 MG/DL (0.1-1.0); CARBON DIOXIDE 23 MMOL/L (21-32)
[2020-06-25 06:50] LABS: ALKALINE PHOSPHATASE 75 U/L (40-136); CREATININE SERUM 0.93 MG/DL (0.60-1.30); GFR ESTIMATED > 60
[2020-06-25 06:51] LABS: BUN/CREATININE RATIO 24
[2020-06-25 06:53] LABS: ALANINE AMINOTRANSFERASE 17 U/L (0-55)
[2020-06-25 08:13] VITALS: BP 151/71
[2020-06-25] MEDS: doxAzosin 2 MG (CARDURA) TAB PO SCH ×2 (09:28→20:38)
[2020-06-25] MEDS: DOCUSATE SODIUM 100 MG (COLACE) CAP PO SCH ×2 (09:28→20:38)
[2020-06-25] MEDS: APIXABAN 5 MG (ELIQUIS) TABLET PO SCH ×2 (09:28→20:38)
[2020-06-25] MEDS: DIGOXIN 0.25 MG (LANOXIN) TAB PO SCH (09:29)
[2020-06-25] MEDS: CLOPIDOGREL 75 MG (PLAVIX) TABLET PO SCH (09:29)
--- NOTE | 2020-06-25 10:06 | NUR ---
ATTEMPTED TO CALL PT FAMILY BACK AFTER GETTING OUT OF ISOLATION ROOMS, BUSY SIGNAL.
[2020-06-25 12:00] VITALS: BP 158/70
[2020-06-25] MEDS: REMDESIVIR INJ 100 MG in NS (IVPB) 230 ML IV SCH (12:53)
--- NOTE | 2020-06-25 14:34 | Progress Note - Hospitalist ---
Subjective HPI/CC On Admission Date Seen by Provider: Jun 25, 2020 Time Seen by Provider: 11:40 Jaspreet Knutson is an 85-year-old male with past medical history of HTN, COPD, CAD, A. fib on Eliquis, BPH, who presented with shortness of breath. He has been sick for a couple weeks. He has had shortness of breath and cough. He reports sputum production. He has had body aches. He denies chest pain. He denies abdominal pain. He reports nausea. He denies diarrhea. He had been at a [employer] and one of his relatives became sick shortly after. He believes that is when he is exposed. Subjective/Events-last exam He is feeling well. He is not feeling short of breath. He thinks he is getting better. He has no complaints or concerns. Objective Exam Vital Signs Vital Signs Date Time Temp Pulse Resp B/P (MAP) Pulse Ox O2 Delivery O2 Flow Rate FiO2 06/25/20 11:16 96 Vapotherm 30.00 65 06/25/20 08:13 37.1 92 26 151/71 (97) Capillary Refill : Less Than 3 Seconds General Appearance: No Apparent Distress, WD/WN Respiratory: Lungs Clear, Normal Breath Sounds, No Respiratory Distress Cardiovascular: Regular Rate, Rhythm, No Edema, No Murmur Gastrointestinal: Normal Bowel Sounds, Non Tender, Soft Extremity: Normal Inspection, Non Tender, No Pedal Edema Neurologic/Psychiatric: Alert, No Motor/Sensory Deficits, Normal Mood/Affect Skin: Normal Color, Warm/Dry Results/Procedures Lab Laboratory Tests 06/25/20 06:15 Patient resulted labs reviewed. Imaging: Reviewed Imaging Report Assessment/Plan Assessment and Plan Assess & Plan/Chief Complaint Acute respiratory failure due to COVID-19 COPD with acute exacerbation Pneumonia Continue Decadron and Remdesivir s/p convalescent plasma 1 Continue Eliquis Continue Cefepime Continue Vapotherm, wean as able MAT protocol CAD Continue Plavix AFib Continue Diltiazem, Digoxin, and Eliquis HTN BPH Continue Doxazosin DVT prophylaxis: already receiving therapeutic anticoagulation Diagnosis/Problems Diagnosis/Problems (1) Acute respiratory failure due to COVID-19 Status: Acute (2) COPD with acute lower respiratory infection Status: Acute (3) PNA (pneumonia) Status: Acute (4) CAD (coronary artery disease) Status: Chronic (5) A-fib Status: Chronic (6) BPH (benign prostatic hyperplasia) Status: Chronic Clinical Quality Measures DVT/VTE Risk/Contraindication: Risk Factor Score Per Nursin RFS Level Per Nursing on Admit: 3=High EFREN ESTRADA MD Jun 25, 2020 14:34
[2020-06-25 16:04] VITALS: BP 148/76
[2020-06-25 20:00] VITALS: BP 157/71
[2020-06-25 23:43] VITALS: BP 150/75
[2020-06-26] MEDS: RT-ALBUTEROL INHALER HFA (VENTOLIN HFA) 18 GM IH SCH ×6 (02:04→21:42)
[2020-06-26 04:52] VITALS: BP 117/62
[2020-06-26 05:25] LABS: BASOPHILS % (AUTO) 0 % (0-10); EOSINOPHILS % (AUTO) 0 % (0-10); HEMATOCRIT 33 % (40-54); HEMOGLOBIN 10.9 g/dL (13.3-17.7); LYMPHOCYTES # (AUTO) 0.4 10^3/uL (1.0-4.0); LYMPHOCYTES % (AUTO) 7 % (12-44); MEAN CORPUSCULAR HEMOGLOBIN 28 pg (25-34); MEAN CORPUSCULAR HGB CONC 33 g/dL (32-36); MEAN CORPUSCULAR VOLUME 87 fL (80-99); MEAN PLATELET VOLUME 11.1 fL (9.0-12.2); MONOCYTES # (AUTO) 0.3 10^3/uL (0.0-1.0); MONOCYTES % (AUTO) 5 % (0-12); NEUTROPHILS # (AUTO) 5.1 10^3/uL (1.8-7.8); NEUTROPHILS % (AUTO) 88 % (42-75); PLATELET COUNT 237 10^3/uL (130-400); WHITE BLOOD COUNT 5.9 10^3/uL (4.3-11.0)
[2020-06-26] MEDS: inSUlin ASPART (NovoLOG) 1 UNIT/0.01 ML (CHARGE PER UNIT) SC SCH ×4 (05:31→20:19)
[2020-06-26] MEDS: CEFEPIME 1,000 MG/SWFI 10 ML IV PUSH IV SCH ×8 (05:40→23:25)
[2020-06-26 05:47] LABS: ALBUMIN 3.3 GM/DL (3.2-4.5)
[2020-06-26 05:48] LABS: CHLORIDE 102 MMOL/L (98-107); POTASSIUM 3.6 MMOL/L (3.6-5.0); SODIUM 136 MMOL/L (135-145)
[2020-06-26 05:49] LABS: CALCIUM 8.5 MG/DL (8.5-10.1)
[2020-06-26 05:50] LABS: GLUCOSE 147 MG/DL (70-105); TOTAL PROTEIN 6.6 GM/DL (6.4-8.2)
[2020-06-26 05:51] LABS: CARBON DIOXIDE 22 MMOL/L (21-32)
[2020-06-26 05:52] LABS: BILIRUBIN,TOTAL 0.5 MG/DL (0.1-1.0)
[2020-06-26 05:53] LABS: ALKALINE PHOSPHATASE 75 U/L (40-136)
[2020-06-26 05:54] LABS: CREATININE SERUM 0.89 MG/DL (0.60-1.30); GFR ESTIMATED > 60
[2020-06-26 05:55] LABS: BUN/CREATININE RATIO 25
[2020-06-26 05:56] LABS: ALANINE AMINOTRANSFERASE 18 U/L (0-55)
[2020-06-26 08:00] VITALS: BP 129/60
[2020-06-26] MEDS: CLOPIDOGREL 75 MG (PLAVIX) TABLET PO SCH (08:22)
[2020-06-26] MEDS: DIGOXIN 0.25 MG (LANOXIN) TAB PO SCH (08:22)
[2020-06-26] MEDS: doxAzosin 2 MG (CARDURA) TAB PO SCH ×2 (08:22→20:19)
[2020-06-26] MEDS: APIXABAN 5 MG (ELIQUIS) TABLET PO SCH ×2 (08:22→20:19)
[2020-06-26] MEDS: DOCUSATE SODIUM 100 MG (COLACE) CAP PO SCH ×2 (08:22→20:19)
--- NOTE | 2020-06-26 11:08 | Progress Note - Hospitalist ---
Subjective HPI/CC On Admission Date Seen by Provider: Jun 26, 2020 Time Seen by Provider: 11:03 Jaspreet Knutson is an 85-year-old male with past medical history of HTN, COPD, CAD, A. fib on Eliquis, BPH, who presented with shortness of breath. He has been sick for a couple weeks. He has had shortness of breath and cough. He reports sputum production. He has had body aches. He denies chest pain. He denies abdominal pain. He reports nausea. He denies diarrhea. He had been at a [employer] and one of his relatives became sick shortly after. He believes that is when he is exposed. Subjective/Events-last exam Pt reports feeling well. Still has high oxygen requirement but otherwise feels fine. Objective Exam Vital Signs Vital Signs Date Time Temp Pulse Resp B/P (MAP) Pulse Ox O2 Delivery O2 Flow Rate FiO2 06/26/20 10:56 96 Vapotherm 30.00 75 06/26/20 08:00 36.2 77 20 129/60 (83) Capillary Refill : Less Than 3 Seconds General Appearance: No Apparent Distress, WD/WN Respiratory: Lungs Clear, No Respiratory Distress Cardiovascular: Regular Rate, Rhythm, No Murmur Neurologic/Psychiatric: Alert, Oriented x3 Results/Procedures Lab Laboratory Tests 06/26/20 04:35 Patient resulted labs reviewed. Imaging: Reviewed Imaging Report Assessment/Plan Assessment and Plan Assess & Plan/Chief Complaint Acute respiratory failure due to COVID-19 COPD with acute exacerbation Pneumonia Continue Decadron and Remdesivir s/p convalescent plasma 1 Continue Eliquis Continue Cefepime Continue Vapotherm, wean as able Discussed parameters for transfer to the ICU for increasing Vapotherm needs MAT protocol CAD Continue Plavix AFib Continue Diltiazem, Digoxin, and Eliquis HTN BPH Continue Doxazosin DVT prophylaxis: already receiving therapeutic anticoagulation Clinical Quality Measures DVT/VTE Risk/Contraindication: Risk Factor Score Per Nursin RFS Level Per Nursing on Admit: 3=High CHETAN LAWRENCE MD Jun 26, 2020 11:07
[2020-06-26 12:00] VITALS: BP 132/62
[2020-06-26] MEDS: REMDESIVIR INJ 100 MG in NS (IVPB) 230 ML IV SCH (12:20)
[2020-06-26 15:46] VITALS: BP 159/72
[2020-06-26 19:38] VITALS: BP 165/77
[2020-06-27] VITALS (7 sets, daily range): BP systolic 117–161; BP diastolic 56–74
[2020-06-27] MEDS: RT-ALBUTEROL INHALER HFA (VENTOLIN HFA) 18 GM IH SCH ×6 (02:29→21:53)
[2020-06-27 05:47] LABS: BASOPHILS % (AUTO) 0 % (0-10); EOSINOPHILS % (AUTO) 0 % (0-10); HEMATOCRIT 32 % (40-54); HEMOGLOBIN 10.8 g/dL (13.3-17.7); LYMPHOCYTES # (AUTO) 0.4 10^3/uL (1.0-4.0); LYMPHOCYTES % (AUTO) 7 % (12-44); MEAN CORPUSCULAR HEMOGLOBIN 28 pg (25-34); MEAN CORPUSCULAR HGB CONC 33 g/dL (32-36); MEAN CORPUSCULAR VOLUME 85 fL (80-99); MEAN PLATELET VOLUME 10.7 fL (9.0-12.2); MONOCYTES # (AUTO) 0.3 10^3/uL (0.0-1.0); MONOCYTES % (AUTO) 5 % (0-12); NEUTROPHILS # (AUTO) 5.4 10^3/uL (1.8-7.8); NEUTROPHILS % (AUTO) 88 % (42-75); PLATELET COUNT 256 10^3/uL (130-400); WHITE BLOOD COUNT 6.2 10^3/uL (4.3-11.0)
[2020-06-27 05:54] LABS: ALBUMIN 3.1 GM/DL (3.2-4.5); CHLORIDE 100 MMOL/L (98-107); POTASSIUM 3.3 MMOL/L (3.6-5.0); SODIUM 135 MMOL/L (135-145)
[2020-06-27 05:56] LABS: CALCIUM 8.2 MG/DL (8.5-10.1)
[2020-06-27 05:57] LABS: GLUCOSE 142 MG/DL (70-105); TOTAL PROTEIN 6.2 GM/DL (6.4-8.2)
[2020-06-27 05:58] LABS: CARBON DIOXIDE 23 MMOL/L (21-32)
[2020-06-27 05:59] LABS: BILIRUBIN,TOTAL 0.5 MG/DL (0.1-1.0)
[2020-06-27 06:00] LABS: ALKALINE PHOSPHATASE 73 U/L (40-136); CREATININE SERUM 0.83 MG/DL (0.60-1.30); GFR ESTIMATED > 60
[2020-06-27] MEDS: inSUlin ASPART (NovoLOG) 1 UNIT/0.01 ML (CHARGE PER UNIT) SC SCH ×4 (06:00→20:51)
[2020-06-27 06:01] LABS: BUN/CREATININE RATIO 28
[2020-06-27 06:03] LABS: ALANINE AMINOTRANSFERASE 20 U/L (0-55)
[2020-06-27] MEDS: DOCUSATE SODIUM 100 MG (COLACE) CAP PO SCH ×2 (09:08→20:51)
[2020-06-27] MEDS: CLOPIDOGREL 75 MG (PLAVIX) TABLET PO SCH (09:08)
[2020-06-27] MEDS: APIXABAN 5 MG (ELIQUIS) TABLET PO SCH ×2 (09:08→20:51)
[2020-06-27] MEDS: DIGOXIN 0.25 MG (LANOXIN) TAB PO SCH (09:08)
[2020-06-27] MEDS: doxAzosin 2 MG (CARDURA) TAB PO SCH ×2 (09:08→20:51)
[2020-06-27] MEDS: REMDESIVIR INJ 100 MG in NS (IVPB) 230 ML IV SCH (12:02)
--- NOTE | 2020-06-27 14:01 | Progress Note - Hospitalist ---
Subjective HPI/CC On Admission Date Seen by Provider: Jun 27, 2020 Time Seen by Provider: 13:57 Jaspreet Knutson is an 85-year-old male with past medical history of HTN, COPD, CAD, A. fib on Eliquis, BPH, who presented with shortness of breath. He has been sick for a couple weeks. He has had shortness of breath and cough. He reports sputum production. He has had body aches. He denies chest pain. He denies abdominal pain. He reports nausea. He denies diarrhea. He had been at a [employer] and one of his relatives became sick shortly after. He believes that is when he is exposed. Subjective/Events-last exam Pt reports doing well. No complaints. Still on Vapotherm. Discussed plan to continue to wean over time but not yet out of the tatum. I offered to call his family for him today but he declined and stated he would call. Objective Exam Vital Signs Vital Signs Date Time Temp Pulse Resp B/P (MAP) Pulse Ox O2 Delivery O2 Flow Rate FiO2 06/27/20 13:01 96 06/27/20 08:00 37.2 20 152/67 (95) 97 Vapotherm 35.00 60.00 06/27/20 08:00 65 Capillary Refill : Less Than 3 Seconds General Appearance: No Apparent Distress, WD/WN Respiratory: Lungs Clear, No Accessory Muscle Use, Other (On Vapotherm) Cardiovascular: Regular Rate, Rhythm, No Murmur Neurologic/Psychiatric: Alert, Oriented x3 Results/Procedures Lab Laboratory Tests 06/27/20 05:30 Patient resulted labs reviewed. Imaging: Reviewed Imaging Report Assessment/Plan Assessment and Plan Assess & Plan/Chief Complaint Acute respiratory failure due to COVID-19 COPD with acute exacerbation Pneumonia Continue Decadron and Remdesivir s/p convalescent plasma 1 Continue Eliquis Continue Cefepime Continue Vapotherm, wean as able Down minimally today MAT protocol CAD Continue Plavix AFib Continue Diltiazem, Digoxin, and Eliquis HTN BPH Continue Doxazosin DVT prophylaxis: already receiving therapeutic anticoagulation Clinical Quality Measures DVT/VTE Risk/Contraindication: Risk Factor Score Per Nursin RFS Level Per Nursing on Admit: 3=High CHETAN LAWRENCE MD Jun 27, 2020 14:01
[2020-06-27] MEDS: ACETAMINOPHEN 500 MG TAB (TYLENOL) PO PRN (20:51)
[2020-06-28] MEDS: RT-ALBUTEROL INHALER HFA (VENTOLIN HFA) 18 GM IH SCH ×6 (01:48→23:10)
[2020-06-28 04:39] VITALS: BP 140/63
[2020-06-28] MEDS: inSUlin ASPART (NovoLOG) 1 UNIT/0.01 ML (CHARGE PER UNIT) SC SCH ×4 (05:57→20:07)
[2020-06-28 06:20] LABS: BASOPHILS % (AUTO) 0 % (0-10); EOSINOPHILS % (AUTO) 0 % (0-10); HEMATOCRIT 33 % (40-54); HEMOGLOBIN 10.7 g/dL (13.3-17.7); LYMPHOCYTES # (AUTO) 0.5 10^3/uL (1.0-4.0); LYMPHOCYTES % (AUTO) 10 % (12-44); MEAN CORPUSCULAR HEMOGLOBIN 28 pg (25-34); MEAN CORPUSCULAR HGB CONC 32 g/dL (32-36); MEAN CORPUSCULAR VOLUME 86 fL (80-99); MEAN PLATELET VOLUME 11.4 fL (9.0-12.2); MONOCYTES # (AUTO) 0.3 10^3/uL (0.0-1.0); MONOCYTES % (AUTO) 7 % (0-12); NEUTROPHILS # (AUTO) 3.8 10^3/uL (1.8-7.8); NEUTROPHILS % (AUTO) 82 % (42-75); PLATELET COUNT 267 10^3/uL (130-400); WHITE BLOOD COUNT 4.6 10^3/uL (4.3-11.0)
[2020-06-28 06:33] LABS: CHLORIDE 103 MMOL/L (98-107); SODIUM 140 MMOL/L (135-145)
[2020-06-28 06:34] LABS: CALCIUM 8.6 MG/DL (8.5-10.1)
[2020-06-28 06:35] LABS: GLUCOSE 203 MG/DL (70-105)
[2020-06-28 06:36] LABS: TOTAL PROTEIN 6.2 GM/DL (6.4-8.2)
[2020-06-28 06:37] LABS: BILIRUBIN,TOTAL 0.5 MG/DL (0.1-1.0); CARBON DIOXIDE 26 MMOL/L (21-32)
[2020-06-28 06:39] LABS: ALKALINE PHOSPHATASE 79 U/L (40-136); CREATININE SERUM 0.83 MG/DL (0.60-1.30); GFR ESTIMATED > 60
[2020-06-28 06:40] LABS: BUN/CREATININE RATIO 30
[2020-06-28 06:42] LABS: ALANINE AMINOTRANSFERASE 20 U/L (0-55)
[2020-06-28 08:00] VITALS: BP 133/61
[2020-06-28] MEDS: DIGOXIN 0.25 MG (LANOXIN) TAB PO SCH (08:24)
[2020-06-28] MEDS: DOCUSATE SODIUM 100 MG (COLACE) CAP PO SCH ×2 (08:24→19:53)
[2020-06-28] MEDS: CLOPIDOGREL 75 MG (PLAVIX) TABLET PO SCH (08:24)
[2020-06-28] MEDS: doxAzosin 2 MG (CARDURA) TAB PO SCH ×2 (08:24→19:52)
[2020-06-28] MEDS: APIXABAN 5 MG (ELIQUIS) TABLET PO SCH ×2 (08:24→19:53)
--- NOTE | 2020-06-28 10:19 | Progress Note - Hospitalist ---
Subjective HPI/CC On Admission Date Seen by Provider: Jun 28, 2020 Time Seen by Provider: 10:11 Jaspreet Knutson is an 85-year-old male with past medical history of HTN, COPD, CAD, A. fib on Eliquis, BPH, who presented with shortness of breath. He has been sick for a couple weeks. He has had shortness of breath and cough. He reports sputum production. He has had body aches. He denies chest pain. He denies abdominal pain. He reports nausea. He denies diarrhea. He had been at a [employer] and one of his relatives became sick shortly after. He believes that is when he is exposed. Subjective/Events-last exam Pt reports feeling well and doing better than yesterday. Discussed with his daughter who is an [employer]CRA[employer] and his today regarding plan. All questions answered. Objective Exam Vital Signs Vital Signs Date Time Temp Pulse Resp B/P (MAP) Pulse Ox O2 Delivery O2 Flow Rate FiO2 06/28/20 08:00 36.2 62 2 133/61 (85) 95 Vapotherm 25.00 40.00 06/28/20 08:00 40 Capillary Refill : Less Than 3 Seconds General Appearance: No Apparent Distress, WD/WN Respiratory: Lungs Clear, No Accessory Muscle Use, Other (On vapotherm) Cardiovascular: Regular Rate, Rhythm, No Murmur Extremity: No Calf Tenderness, No Pedal Edema Neurologic/Psychiatric: Alert, Oriented x3 Results/Procedures Lab Laboratory Tests 06/28/20 05:55 Patient resulted labs reviewed. Imaging: Reviewed Imaging Report Assessment/Plan Assessment and Plan Assess & Plan/Chief Complaint Acute respiratory failure due to COVID-19 COPD with acute exacerbation Pneumonia Continue Decadron and Remdesivir s/p convalescent plasma 1 Continue Eliquis Continue Cefepime Continue Vapotherm, wean as able- down significantly over the past couple of days MAT protocol CAD Continue Plavix AFib Continue Diltiazem, Digoxin, and Eliquis HTN BPH Continue Doxazosin DVT prophylaxis: already receiving therapeutic anticoagulation Clinical Quality Measures DVT/VTE Risk/Contraindication: Risk Factor Score Per Nursin RFS Level Per Nursing on Admit: 3=High CHETAN LAWRENCE MD Jun 28, 2020 10:19
--- NOTE | 2020-06-28 10:37 | Physical Therapy Evaluation ---
PT Evaluation-General Medical Diagnosis Admission Date Jun 22, 2020 at 14:32 Medical Diagnosis: acute respiratory failure due to covid 19 Onset Date: Jun 22, 2020 Therapy Diagnosis Therapy Diagnosis: impaired mobility, endurance Height/Weight Height (Feet): 5 Height (Inches): 8.00 Weight (Pounds): 190 Weight (Ounces): 0.6 Precautions Precautions/Isolations: Airborne Isolation, Droplet Isolation, Fall Prevention, Standard Precautions Referral Physician: Yvette Reason for Referral: Evaluation/Treatment Medical History Additional Medical History Past Medical History Surgeries: Coronary Stent, Gallbladder, Orthopedic, Vasectomy Respiratory: COPD, Pulmonary Fibrosis, Sleep Apnea Cardiac: Coronary Artery Disease, Heart Attack, High Cholesterol, Hypertension Reproductive: No Sexually Transmitted Disease: No HIV/AIDS: No Genitourinary: Benign Prostatic Hyperpl, Bladder Infection, Renal Failure Gastrointestinal: Chronic Constipation Endocrine: Diabetes, Non-Insulin dep Loss of Vision: Bilateral Hearing Impairment: Denies History of Blood Disorders: Yes (MILD ANEMIA) Reviewed History: Yes Social History Home: Single Level Current Living Status: Spouse Entry Into Home: Stairs Without Railing PT Steps Into Home: 1 Prior Prior Level of Function SCALE: Activities may be completed with or without assistive devices. 6-Xecuisvwpj-uygbigw completes the activity by him/herself with no assistance fr om a helper. 5-Set-up or Clean-up Assistance-helper sets up or cleans up; patient completes activity. [place] assists only prior to or following the activity. 4-Supervision or Touching Assistance-helper provides verbal cues and/or touching/steadying and/or contact guard assistance as patient completes activity. Assistance may be provided throughout the activity or intermittently. 3-Partial/Moderate Assistance-helper does LESS THAN HALF the effort. Orient lifts, holds or supports trunk or limbs, but provides less than half the effort. 2-Substantial/Maximal Assistance-helper does MORE THAN HALF the effort. [place] lifts or holds trunk or limbs and provides more than half the effort. 2-Kurtbougw-yfcsjb does ALL the effort. Patient does none of the effort to complete the activity. Or, the assistance of 2 or more helpers is required for the patient to complete the activity. If activity was not attempted, code reason: 7-Patient Refused. 9-Not Applicable-not attempted and the patient did not perform the activity before the current illness, exacerbation or injury. 10-Not Attempted due to Environmental Limitations-(lack of equipment, weather restraints, etc.). 88-Not Attempted due to Medical Conditions or Safety Concerns. Bed Mobility: 6 Transfers (B,C,W/C): 6 Gait: 6 Stairs: 6 Indoor Mobility (Ambulation): Independent Stairs: Independent PT Evaluation-Current Subjective Patient sitting EOB pre tx, agrees to PT, has no complaints of pain. Pt/Family Goals "to go home" Objective Patient Orientation: Person, Place, Situation Attachments: Oxygen, IV vapotherm ROM/Strength ROM Lower Extremities WNL Strength Lower Extremities 5/5 gross BLE Sensory Hearing: Functional Sensation Right Lower Extremit: Intact Sensation Left Lower Extremity: Intact Sensation Lower Extremities Patient states he has neuropathy and has slight numbness in both feet but also had intact light touch sensation. Transfers Roll Left to Right (QC): 6 Sit to Lying (QC): 6 Lying to Sitting/Side of Bed(Q: 6 Sit to Stand (QC): 6 Gait Does the Patient Walk?: Yes Mode of Locomotion: Walk Anticipated Mode of Locomotion: Walk Walk 10 feet (QC): 6 Distance: 20' Gait Assistive Device: None Comments/Gait Description Patient ambulated 10' forward and then 10' back independently, no SOB but his O2 went down to 88%, came back up after a minute of purse lip breathing to 91% Balance Sitting Static: Normal Sitting Dynamic: Normal Standing Static: Normal Standing Dynamic: Normal Treatment seated BLE exercises x20 (AP, LAQ) Assessment/Needs Patient has independent transfers and ambulation but poor endurance, good strength. Patient sitting EOB post tx with nurse call,phone, tray, all needs met. Rehab Potential: Fair PT Chcf Goals Personnel Consultant Goals PT Personnel Consultant Goals Time Frame: Jul 05, 2020 Roll Left & Right (QC): 6 Sit to Lying (QC): 6 Lying-Sitting on Side/Bed(QC): 6 Sit to Stand (QC): 6 Chair/Vaj-uj-Otqyd Xfer(QC): 6 Walk 10 feet (QC): 6 Walk 50ft with 2 Turns (QC): 6 PT Plan Problem List Problem List: Activity Tolerance, Functional Strength, Safety, Balance, Gait, Transfer Treatment/Plan Treatment Plan: Continue Plan of Care Treatment Plan: Education, Functional Activity Rubens, Functional Strength, Gait, Safety, Therapeutic Exercise, Transfers Treatment Duration: Jul 05, 2020 Frequency: 6 times per week Estimated Hrs Per Day: .25 hour per day Patient and/or Family Agrees t: Yes Safety Risks/Education Patient Education: Gait Training, Transfer Techniques, Correct Positioning, Safety Issues Teaching Recipient: Patient Teaching Methods: Demonstration, Discussion Response to Teaching: Reinforcement Needed Discharge Recommendations Plan Patient will perform bed mobility and transfer training, balance and endurance training, functional strengthening, stair training, gait training, and education, to improve functional mobility and independence at home. Therapy Discharge Recommendati: Home & Family Time/GCodes Time In: 1013 Time Out: 1027 Total Billed Treatment Time: 14 Total Billed Treatment 1 visit MARCE LUGO PT Jun 28, 2020 10:37
[2020-06-28 12:00] VITALS: BP 111/56
[2020-06-28] MEDS: REMDESIVIR INJ 100 MG in NS (IVPB) 230 ML IV SCH (12:55)
--- NOTE | 2020-06-28 15:44 | Occupational Therapy Eval ---
OT Evaluation-General/PLF Medical Diagnosis Admission Date Jun 22, 2020 at 14:32 Medical Diagnosis: acute respiratory failure due to covid 19 Onset Date: Jun 22, 2020 Therapy Diagnosis Therapy Diagnosis: weakness Height/Weight Height (Feet): 5 Height (Inches): 8.00 Weight (Pounds): 190 Weight (Ounces): 0.6 Precautions Precautions/Isolations: Airborne Isolation, Droplet Isolation, Fall Prevention, Standard Precautions Referral Physician: Yvette Referral Reason: Evaluation/Treatment Medical History Pertinent Medical History: CAD, COPD, DM, HTN Additional Medical History pulmonary fibrosis, sleep apnea, heart attack Social History Home: Single Level Current Living Status: Spouse Entry Into Home: Stairs Without Railing Steps Into Home: 1 ADL-Prior Level of Function SCALE: Activities may be completed with or without assistive devices. 3-Fwxaiyjpzs-mgobsds completes the activity by him/herself with no assistance from a helper. 5-Set-up or Clean-up Assistance-helper sets up or cleans up; patient completes activity. [place] assists only prior to or following the activity. 4-Supervision or Touching Assistance-helper provides verbal cues and/or touching /steadying and/or contact guard assistance as patient completes activity. Assistance may be provided throughout the activity or intermittently. 3-Partial/Moderate Assistance-helper does LESS THAN HALF the effort. [place] lifts, holds or supports trunk or limbs, but provides less than half the effort. 2-Substantial/Maximal Assistance-helper does MORE THAN HALF the effort. [place] lifts or holds trunk or limbs and provides more than half the effort. 7-Kszmzkehz-cifnsq does ALL the effort. Patient does none of the effort to complete the activity. Or, the assistance of 2 or more helpers is required for the patient to complete the activity. If activity was not attempted, code reason: 7-Patient Refused. 9-Not Applicable-not attempted and the patient did not perform the activity before the current illness, exacerbation or injury. 10-Not Attempted due to Environmental Limitations-(lack of equipment, weather restraints, etc.). 88-Not Attempted due to Medical Conditions or Safety Concerns. ADL PLOF Comments Pt indicates independence with ADLs and functional moiblity at PLOF, Self Care: Independent Functional Cognition: Independent DME/Equipment: Bath Chair, Tub/Shower OT Current Status Subjective Pt seated EOB with nursing staff present. Agreeable to OT evaluation. Mental Status/Objective Patient Orientation: Person, Place, Time, Situation Attachments: Oxygen Current Upper Extremity ROM WFL Upper Extremity Coordination WFL Upper Extremity Sensation WFL ADL-Treatment Shower/Bathe Self (QC): 6 (Pt able to complete shower in sitting) Upper Body Dressing (QC): 6 (IND doffing shirt.) Lower Body Dressing (QC): 6 (pt doffed pants indepenently) On/Off Footwear (QC): 6 (IND doffing gripper socks.) Other Treatments Pt seated EOB, agreeable to OT evaluation. OT educated pt on purpose and benefit of OT, he verbalized understanding. He then provided information about PLOF and home set up and participated in UE screen. Nurse staff present stating pt requesting shower. OT educated pt on energy conservation of sitting down to shower vs standing, he verbalized understanding and indicates he has a chair at home for the shower. Pt ambulated into shower independently and onto shower bench. Pt doffed clothes, then completed showering, washing all parts independently. Post OT Tx, pt seated on shower bench, nursing staff present, all needs met. Education OT Patient Education: Correct positioning, Modified ADL techniques, Progress toward Goal/Update tx plan, Purpose of tx/functional activities Teaching Recipient: Patient Teaching Methods: Discussion Response to Teaching: Verbalize Understanding OT Chcf Goals Chcf Goals 1=Demonstrate adherence to instructed precautions during ADL tasks. 2=Patient will verbalize/demonstrate understanding of assistive devices/modifications for ADL. 3=Patient will improve strength/tolerance for activity to enable patient to perform ADL's. OT Education/Plan Problem List/Assessment Assessment: No Skilled OT Needs ID'd No skilled OT services indicated at this time due to pt being at PLOF and independent with ADLs. Discharge Recommendations Plan/Recommendations: Discharge/Goals Met Treatment Plan/Plan of Care Patient would benefit from OT for education, treatment and training to promote independence in ADL's, mobility, safety and/or upper extremity function for ADL's. Plan of Care: ADL Retraining Treatment Duration: Jun 28, 2020 Frequency: 1 time per week (eval only) Rehab Potential: Fair Time/GCodes Start Time: 14:38 Stop Time: 14:53 Total Time Billed (hr/min): 15 Billed Treatment Time 1, JORDAN BROWN OT Jun 28, 2020 15:44
[2020-06-28 16:35] VITALS: BP 151/65
[2020-06-28] MEDS: ACETAMINOPHEN 500 MG TAB (TYLENOL) PO PRN (19:53)
[2020-06-28 20:02] VITALS: BP 160/71
[2020-06-28 23:50] VITALS: BP 124/56
[2020-06-29] MEDS: RT-ALBUTEROL INHALER HFA (VENTOLIN HFA) 18 GM IH SCH ×6 (02:59→21:52)
[2020-06-29 04:10] VITALS: BP 143/67
[2020-06-29] MEDS: inSUlin ASPART (NovoLOG) 1 UNIT/0.01 ML (CHARGE PER UNIT) SC SCH ×4 (06:23→19:52)
[2020-06-29 07:02] LABS: BASOPHILS % (AUTO) 0 % (0-10); EOSINOPHILS % (AUTO) 0 % (0-10); HEMATOCRIT 35 % (40-54); HEMOGLOBIN 11.2 g/dL (13.3-17.7); LYMPHOCYTES # (AUTO) 0.5 10^3/uL (1.0-4.0); LYMPHOCYTES % (AUTO) 8 % (12-44); MEAN CORPUSCULAR HEMOGLOBIN 28 pg (25-34); MEAN CORPUSCULAR HGB CONC 33 g/dL (32-36); MEAN CORPUSCULAR VOLUME 86 fL (80-99); MEAN PLATELET VOLUME 10.6 fL (9.0-12.2); MONOCYTES # (AUTO) 0.3 10^3/uL (0.0-1.0); MONOCYTES % (AUTO) 4 % (0-12); NEUTROPHILS # (AUTO) 5.6 10^3/uL (1.8-7.8); NEUTROPHILS % (AUTO) 85 % (42-75); PLATELET COUNT 326 10^3/uL (130-400); WHITE BLOOD COUNT 6.6 10^3/uL (4.3-11.0)
[2020-06-29 07:22] LABS: ALANINE AMINOTRANSFERASE 18 U/L (0-55); ALKALINE PHOSPHATASE 92 U/L (40-136); BILIRUBIN,TOTAL 0.4 MG/DL (0.1-1.0); BUN/CREATININE RATIO 28; CALCIUM 8.4 MG/DL (8.5-10.1); CARBON DIOXIDE 25 MMOL/L (21-32); CHLORIDE 101 MMOL/L (98-107); CREATININE SERUM 0.85 MG/DL (0.60-1.30); GFR ESTIMATED > 60; GLUCOSE 235 MG/DL (70-105); POTASSIUM 4.1 MMOL/L (3.6-5.0); SODIUM 136 MMOL/L (135-145); TOTAL PROTEIN 6.3 GM/DL (6.4-8.2)
[2020-06-29] MEDS: doxAzosin 2 MG (CARDURA) TAB PO SCH ×2 (08:40→19:49)
[2020-06-29] MEDS: CLOPIDOGREL 75 MG (PLAVIX) TABLET PO SCH (08:40)
[2020-06-29] MEDS: DOCUSATE SODIUM 100 MG (COLACE) CAP PO SCH ×2 (08:40→19:49)
[2020-06-29] MEDS: APIXABAN 5 MG (ELIQUIS) TABLET PO SCH ×2 (08:40→19:49)
[2020-06-29] MEDS: DIGOXIN 0.25 MG (LANOXIN) TAB PO SCH (08:40)
[2020-06-29 08:41] VITALS: BP 145/62
--- NOTE | 2020-06-29 10:12 | Progress Note - Hospitalist ---
Subjective HPI/CC On Admission Date Seen by Provider: Jun 29, 2020 Time Seen by Provider: 10:10 Jaspreet Knutson is an 85-year-old male with past medical history of HTN, COPD, CAD, A. fib on Eliquis, BPH, who presented with shortness of breath. He has been sick for a couple weeks. He has had shortness of breath and cough. He reports sputum production. He has had body aches. He denies chest pain. He denies abdominal pain. He reports nausea. He denies diarrhea. He had been at a [employer] and one of his relatives became sick shortly after. He believes that is when he is exposed. Subjective/Events-last exam Pt reports doing well. States he feel great. Off Vapotherm. Objective Exam Vital Signs Vital Signs Date Time Temp Pulse Resp B/P (MAP) Pulse Ox O2 Delivery O2 Flow Rate FiO2 06/29/20 08:41 36.4 63 20 145/62 (89) 96 Vapotherm 25.00 50.00 06/29/20 07:12 50 Capillary Refill : Less Than 3 Seconds General Appearance: No Apparent Distress, WD/WN Respiratory: Lungs Clear, No Accessory Muscle Use, No Respiratory Distress Cardiovascular: Regular Rate, Rhythm, No Murmur Gastrointestinal: Normal Bowel Sounds, Non Tender, Soft Neurologic/Psychiatric: Alert, Oriented x3 Results/Procedures Lab Laboratory Tests 06/29/20 06:50 Patient resulted labs reviewed. Imaging: Reviewed Imaging Report Assessment/Plan Assessment and Plan Assess & Plan/Chief Complaint Acute respiratory failure due to COVID-19 COPD with acute exacerbation Pneumonia Continue Decadron Completed Remdesivir s/p convalescent plasma 1 Continue Eliquis Continue Cefepime Now off vapotherm, on 6lpm VT MAT protocol CAD Continue Plavix AFib Continue Diltiazem, Digoxin, and Eliquis HTN BPH Continue Doxazosin DVT prophylaxis: already receiving therapeutic anticoagulation Clinical Quality Measures DVT/VTE Risk/Contraindication: Risk Factor Score Per Nursin RFS Level Per Nursing on Admit: 3=High CHETAN LAWRENCE MD Jun 29, 2020 10:12
--- NOTE | 2020-06-29 10:48 | NUR ---
CM/SS discharge planning. Plan: Patient will likely discharge home self care tomorrow 06/30. The patient is having a home o2 study completed to determine need. DME: The patient and his agreed they would like to use [facility] since they have used it before. CM/SS spoke with Mary at the agency. She reports they do have oxygen available. CM/SS will send home o2 and script if the patient qualifies. CM/SS contacted the patient's number listed on facesheet. The patient's daughter answered who is staying with the patient's . CM/SS provided an update and informed them of possible discharge tomorrow. She verbalized understanding. CM/SS will continue to follow.
--- NOTE | 2020-06-29 11:21 | Physical Therapy Daily Note ---
PT Daily Note-Current Subjective Patient sitting EOB pre tx, agrees to PT, has no complaints of pain. Patient states he needs to ambulate to the restroom to have a BM. Appearance Patient on toilet post tx with nurse call, instructed to call nurse when done. Mental Status Patient Orientation: Person, Place, Situation Attachments: Oxygen Transfers SCALE: Activities may be completed with or without assistive devices. 1-Ewqdafvujp-cxlisxc completes the activity by him/herself with no assistance from a helper. 5-Set-up or Clean-up Assistance-helper sets up or cleans up; patient completes activity. [place] assists only prior to or following the activity. 4-Supervision or Touching Assistance-helper provides verbal cues and/or touching/steadying and/or contact guard assistance as patient completes activity. Assistance may be provided throughout the activity or intermittently. 3-Partial/Moderate Assistance-helper does LESS THAN HALF the effort. [place] lifts, holds or supports trunk or limbs, but provides less than half the effort. 2-Substantial/Maximal Assistance-helper does MORE THAN HALF the effort. [place] lifts or holds trunk or limbs and provides more than half the effort. 2-Ngmhccded-urrgma does ALL the effort. Patient does none of the effort to complete the activity. Or, the assistance of 2 or more helpers is required for the patient to complete the activity. If activity was not attempted, code reason: 7-Patient Refused. 9-Not Applicable-not attempted and the patient did not perform the activity before the current illness, exacerbation or injury. 10-Not Attempted due to Environmental Limitations-(lack of equipment, weather restraints, etc.). 88-Not Attempted due to Medical Conditions or Safety Concerns. Sit to Stand (QC): 4 SBA Gait Training Distance: 10' Walk 10 feet (QC): 4 SBA, patient insists using the bedside table to hold onto to walk into the restroom, he is not interested in using the walker and insists on using the table, he does it easily and ambulates into the restroom with SBA, sits on the toilet without difficulty, patient states he will be here a while Treatments ambulation Assessment Current Status: Fair Progress improved general functional mobility PT Intermediate Goals Automated Manufacturing Instructor Goals PT Automated Manufacturing Instructor Goals Time Frame: Jul 05, 2020 Roll Left & Right (QC): 6 Sit to Lying (QC): 6 Lying-Sitting on Side/Bed(QC): 6 Sit to Stand (QC): 6 Chair/Tuh-um-Cyxzu Xfer(QC): 6 Walk 10 feet (QC): 6 Walk 50ft with 2 Turns (QC): 6 PT Plan Problem List Problem List: Activity Tolerance, Functional Strength, Safety, Balance, Gait, Transfer Treatment/Plan Treatment Plan: Continue Plan of Care Treatment Plan: Education, Functional Activity Rubens, Functional Strength, Gait, Safety, Therapeutic Exercise, Transfers Treatment Duration: Jul 05, 2020 Frequency: 6 times per week Estimated Hrs Per Day: .25 hour per day Patient and/or Family Agrees t: Yes Safety Risks/Education Patient Education: Gait Training, Transfer Techniques, Correct Positioning, Safety Issues Teaching Recipient: Patient Teaching Methods: Demonstration, Discussion Response to Teaching: Reinforcement Needed Time/GCodes Time In: 1048 Time Out: 1108 Total Billed Treatment Time: 20 Total Billed Treatment 1 visit FA 20' MARCE DUDLEY PT Jun 29, 2020 11:21
[2020-06-29 12:00] VITALS: BP 145/62
[2020-06-29 15:45] VITALS: BP 165/71
[2020-06-29 19:36] VITALS: BP 157/71
--- NOTE | 2020-06-29 19:51 | Discharge Inst-Simple/Standard ---
Discharge Inst-Standard Patient Instructions/Follow Up Plan of Care/Instructions/FU: Please continue to take your medications as written. Please follow up with your primary care doctor to follow up this hospital stay. Activity as Tolerated: Yes Discharge Diet: Cardiac Diet Return to The Hospital For: Chest pain, shortness of breath, fever, confusion, weakness, if you feel you are getting worse. CHETAN LAWRENCE MD Jun 29, 2020 19:51
[2020-06-30 00:15] VITALS: BP 139/65
[2020-06-30] MEDS: RT-ALBUTEROL INHALER HFA (VENTOLIN HFA) 18 GM IH SCH ×5 (02:30→19:06)
[2020-06-30 04:10] VITALS: BP 147/73
[2020-06-30] MEDS: inSUlin ASPART (NovoLOG) 1 UNIT/0.01 ML (CHARGE PER UNIT) SC SCH ×4 (05:41→20:26)
[2020-06-30 06:24] LABS: BASOPHILS % (AUTO) 0 % (0-10); EOSINOPHILS % (AUTO) 0 % (0-10); HEMATOCRIT 37 % (40-54); LYMPHOCYTES # (AUTO) 0.5 10^3/uL (1.0-4.0); LYMPHOCYTES % (AUTO) 5 % (12-44); MEAN CORPUSCULAR HEMOGLOBIN 28 pg (25-34); MEAN CORPUSCULAR HGB CONC 33 g/dL (32-36); MEAN CORPUSCULAR VOLUME 86 fL (80-99); MEAN PLATELET VOLUME 10.9 fL (9.0-12.2); MONOCYTES # (AUTO) 0.3 10^3/uL (0.0-1.0); MONOCYTES % (AUTO) 3 % (0-12); NEUTROPHILS % (AUTO) 87 % (42-75); PLATELET COUNT 325 10^3/uL (130-400); WHITE BLOOD COUNT 9.2 10^3/uL (4.3-11.0)
[2020-06-30 06:45] LABS: ALANINE AMINOTRANSFERASE 17 U/L (0-55); ALBUMIN 3.1 GM/DL (3.2-4.5); ALKALINE PHOSPHATASE 87 U/L (40-136); BILIRUBIN,TOTAL 0.5 MG/DL (0.1-1.0); BUN/CREATININE RATIO 28; CARBON DIOXIDE 24 MMOL/L (21-32); CHLORIDE 99 MMOL/L (98-107); CREATININE SERUM 0.83 MG/DL (0.60-1.30); GFR ESTIMATED > 60; GLUCOSE 151 MG/DL (70-105); POTASSIUM 4.2 MMOL/L (3.6-5.0); SODIUM 136 MMOL/L (135-145); TOTAL PROTEIN 6.5 GM/DL (6.4-8.2)
[2020-06-30 06:48] LABS: BAND NEUTROPHILS 7 %; LYMPHOCYTES % (MANUAL) 4 %; MONOCYTES % (MANUAL) 5 %; NEUTROPHILS % (MANUAL) 84 %; TOXIC GRANULATION/VACUOLAZATIO 1+
[2020-06-30 07:52] VITALS: BP 135/63
[2020-06-30] MEDS: DOCUSATE SODIUM 100 MG (COLACE) CAP PO SCH ×2 (07:57→20:26)
[2020-06-30] MEDS: CLOPIDOGREL 75 MG (PLAVIX) TABLET PO SCH (07:57)
[2020-06-30] MEDS: APIXABAN 5 MG (ELIQUIS) TABLET PO SCH ×2 (07:57→20:26)
[2020-06-30] MEDS: ACETAMINOPHEN 500 MG TAB (TYLENOL) PO PRN ×2 (07:57→20:29)
[2020-06-30] MEDS: DIGOXIN 0.25 MG (LANOXIN) TAB PO SCH (07:57)
[2020-06-30] MEDS: doxAzosin 2 MG (CARDURA) TAB PO SCH ×2 (07:57→20:26)
--- NOTE | 2020-06-30 10:01 | NUR ---
RT EDMUNDO NOTIFIED AT THIS TIME OF NEED FOR INITIATION OF INCENTIVE SPIROMETRY.
--- NOTE | 2020-06-30 10:37 | Progress Note - Hospitalist ---
Subjective HPI/CC On Admission Date Seen by Provider: Jun 30, 2020 Time Seen by Provider: 10:34 Jaspreet Knutson is an 85-year-old male with past medical history of HTN, COPD, CAD, A. fib on Eliquis, BPH, who presented with shortness of breath. He has been sick for a couple weeks. He has had shortness of breath and cough. He reports sputum production. He has had body aches. He denies chest pain. He denies abdominal pain. He reports nausea. He denies diarrhea. He had been at a [employer] and one of his relatives became sick shortly after. He believes that is when he is exposed. Subjective/Events-last exam Pt reports feeling well still. Overnight had to go back on Vapotherm. Discussed with patient and later with his daughter regarding step backs are common and we will continue to monitor closely for any worsening. Objective Exam Vital Signs Vital Signs Date Time Temp Pulse Resp B/P (MAP) Pulse Ox O2 Delivery O2 Flow Rate FiO2 06/30/20 08:41 36.8 06/30/20 08:00 90 Vapotherm 25.00 60 06/30/20 07:52 97 20 135/63 (87) Capillary Refill : Less Than 3 Seconds General Appearance: No Apparent Distress, WD/WN Respiratory: Lungs Clear, No Accessory Muscle Use, Other (on vapotherm) Cardiovascular: Regular Rate, Rhythm, No Murmur Neurologic/Psychiatric: Alert, Oriented x3, Normal Mood/Affect Results/Procedures Lab Laboratory Tests 06/30/20 05:34 Patient resulted labs reviewed. Imaging: Reviewed Imaging Report Assessment/Plan Assessment and Plan Assess & Plan/Chief Complaint Acute respiratory failure due to COVID-19 COPD with acute exacerbation Pneumonia Continue Decadron for 10 days Completed Remdesivir and Cefepime s/p convalescent plasma 1 Continue Eliquis Back on Vapotherm, wean as able MAT protocol CAD Continue Plavix AFib Continue Diltiazem, Digoxin, and Eliquis HTN BPH Continue Doxazosin DVT prophylaxis: already receiving therapeutic anticoagulation Clinical Quality Measures DVT/VTE Risk/Contraindication: Risk Factor Score Per Nursin RFS Level Per Nursing on Admit: 3=High CHETAN LAWRENCE MD Jun 30, 2020 10:37
--- NOTE | 2020-06-30 10:50 | Physical Therapy Daily Note ---
PT Daily Note-Current Subjective Patient in recliner pre tx, agrees to PT, has no complaints of pain, patient is now on a vapotherm. Appearance Patient in recliner post tx with nurse call, phone, tray, all needs met. Mental Status Patient Orientation: Person, Place, Situation Attachments: Oxygen Transfers SCALE: Activities may be completed with or without assistive devices. 8-Coghgdfift-ycudpck completes the activity by him/herself with no assistance from a helper. 5-Set-up or Clean-up Assistance-helper sets up or cleans up; patient completes activity. [place] assists only prior to or following the activity. 4-Supervision or Touching Assistance-helper provides verbal cues and/or touching/steadying and/or contact guard assistance as patient completes activity. Assistance may be provided throughout the activity or intermittently. 3-Partial/Moderate Assistance-helper does LESS THAN HALF the effort. [place] lifts, holds or supports trunk or limbs, but provides less than half the effort. 2-Substantial/Maximal Assistance-helper does MORE THAN HALF the effort. [place] lifts or holds trunk or limbs and provides more than half the effort. 1-Qskixvwae-zbizck does ALL the effort. Patient does none of the effort to complete the activity. Or, the assistance of 2 or more helpers is required for the patient to complete the activity. If activity was not attempted, code reason: 7-Patient Refused. 9-Not Applicable-not attempted and the patient did not perform the activity before the current illness, exacerbation or injury. 10-Not Attempted due to Environmental Limitations-(lack of equipment, weather restraints, etc.). 88-Not Attempted due to Medical Conditions or Safety Concerns. Sit to Stand (QC): 6 Gait Training Distance: 50' Walk 10 feet (QC): 4 Walk 50 ft with 2 Turns(QC): 4 Gait Persons Needed: 1 Gait Assistive Device: FWW SBA, patient ambulates forward as far as his vapotherm line with allow and then backwards back to recliner multiple times for a total of about 50'. Patient has no difficulty ambulating with a rolling walker but his O2 drops to 85%, comes back up to 90% after about a minute of rest and purse lip breathing. Exercises Seated Therapy Exercises: Ankle pumps, Long arc quads Seated Reps: 20 Treatments ambulation, LE exercise Assessment Current Status: Poor Progress O2 drops with activity PT Corporate Claims Examiner Goals Care Home Goals PT Corporate Claims Examiner Goals Time Frame: Jul 05, 2020 Roll Left & Right (QC): 6 Sit to Lying (QC): 6 Lying-Sitting on Side/Bed(QC): 6 Sit to Stand (QC): 6 Chair/Idp-pa-Wuarj Xfer(QC): 6 Walk 10 feet (QC): 6 Walk 50ft with 2 Turns (QC): 6 PT Plan Problem List Problem List: Activity Tolerance, Functional Strength, Safety, Balance, Gait, Transfer Treatment/Plan Treatment Plan: Continue Plan of Care Treatment Plan: Education, Functional Activity Rubens, Functional Strength, Gait, Safety, Therapeutic Exercise, Transfers Treatment Duration: Jul 05, 2020 Frequency: 6 times per week Estimated Hrs Per Day: .25 hour per day Patient and/or Family Agrees t: Yes Safety Risks/Education Patient Education: Gait Training, Transfer Techniques, Correct Positioning, Safety Issues Teaching Recipient: Patient Teaching Methods: Demonstration, Discussion Response to Teaching: Reinforcement Needed Time/GCodes Time In: 1020 Time Out: 1029 Total Billed Treatment Time: 9 Total Billed Treatment 1 visit GT 9' MARCE DUDLEY PT Jun 30, 2020 10:50
--- NOTE | 2020-06-30 10:59 | NUR ---
CM/SS follow up. CM/SS was notified that the patient's oxygen requirements increased to Vapotherm. The patient will not discharge today. physician updated family. DME: CM/SS contacted [facility] to inform them patient will not discharge. They have the clinical needed just need script and o2 when able to discharge. CM/SS will continue to follow.
[2020-06-30 11:30] VITALS: BP 143/65
--- NOTE | 2020-06-30 13:53 | NUR ---
"RD ASSESSMENT PMHx: COPD; CAD; hypercholesterolemia; HTN; BPH; renal failure; chronic constipation; DM; PT INTERACTION: Note pt is currently in COVID isolation, per chart review. Note all diet information for follow-up is per Josselyn RN, or per chart review. Josselyn states current appetite appears good. Note avg PO intake >90% x4d, per chart review. Josselyn states no issues with nausea, vomiting, constipation, or diarrhea that she is aware of. Note last BM was 06/27, and pt currently on bowel regimen of colace BID, per chart review. Est. kcal needs: 5842-7340 kcal | 15-20 kcal/kg Est. Pro needs: 72-90 g Pro | 0.8-1.0 g Pro/kg PES STATEMENT: Given current PO intake, no nutrition diagnosis at this time (NO-1.1). INTERVENTION: Continue with current diet order of CHO 60g/m 3snack diet. Will continue to follow and reassess as pt needs, intake, and status change. Fatou CARDENAS, MS RD [phone] cell"
--- NOTE | 2020-06-30 14:34 | Diagnostic Imaging Report ---
INDICATION: COVID Positive patient. COMPARISON: 06/22/2020 FINDINGS: Single frontal radiographic view of the chest was obtained and demonstrates interval progression of diffuse interstitial infiltrates, greatest within the left lateral midlung and right base. There is no large effusion or pneumothorax. Cardiac silhouette and pulmonary vasculature are within normal limits. Osseous structures show no gross acute abnormalities. IMPRESSION: 1. Interval progression of bilateral interstitial infiltrate. Dictated by: Dictated on workstation # [id number]
[2020-06-30 16:10] VITALS: BP 148/66
[2020-06-30 19:20] VITALS: BP 148/66
[2020-07-01] VITALS (14 sets, daily range): BP systolic 30–151; BP diastolic 38–97
[2020-07-01] MEDS: RT-ALBUTEROL INHALER HFA (VENTOLIN HFA) 18 GM IH SCH ×5 (00:18→16:04)
[2020-07-01] MEDS: inSUlin ASPART (NovoLOG) 1 UNIT/0.01 ML (CHARGE PER UNIT) SC SCH ×4 (06:10→20:00)
[2020-07-01 06:29] LABS: BASOPHILS % (AUTO) 0 % (0-10); EOSINOPHILS # (AUTO) 0.1 10^3/uL (0.0-0.3); EOSINOPHILS % (AUTO) 1 % (0-10); HEMATOCRIT 36 % (40-54); HEMOGLOBIN 11.9 g/dL (13.3-17.7); LYMPHOCYTES # (AUTO) 0.4 10^3/uL (1.0-4.0); LYMPHOCYTES % (AUTO) 5 % (12-44); MEAN CORPUSCULAR HEMOGLOBIN 28 pg (25-34); MEAN CORPUSCULAR HGB CONC 33 g/dL (32-36); MEAN CORPUSCULAR VOLUME 86 fL (80-99); MEAN PLATELET VOLUME 10.3 fL (9.0-12.2); MONOCYTES # (AUTO) 0.2 10^3/uL (0.0-1.0); MONOCYTES % (AUTO) 2 % (0-12); NEUTROPHILS # (AUTO) 7.9 10^3/uL (1.8-7.8); NEUTROPHILS % (AUTO) 89 % (42-75); PLATELET COUNT 282 10^3/uL (130-400); WHITE BLOOD COUNT 8.8 10^3/uL (4.3-11.0)
[2020-07-01 06:42] LABS: CHLORIDE 100 MMOL/L (98-107); POTASSIUM 4.9 MMOL/L (3.6-5.0); SODIUM 137 MMOL/L (135-145)
[2020-07-01 06:43] LABS: CALCIUM 8.4 MG/DL (8.5-10.1)
[2020-07-01 06:44] LABS: GLUCOSE 150 MG/DL (70-105)
[2020-07-01 06:45] LABS: TOTAL PROTEIN 6.3 GM/DL (6.4-8.2)
[2020-07-01 06:46] LABS: BILIRUBIN,TOTAL 0.6 MG/DL (0.1-1.0); CARBON DIOXIDE 29 MMOL/L (21-32)
[2020-07-01 06:48] LABS: ALKALINE PHOSPHATASE 79 U/L (40-136); CREATININE SERUM 0.87 MG/DL (0.60-1.30); GFR ESTIMATED > 60
[2020-07-01 06:49] LABS: BUN/CREATININE RATIO 25
[2020-07-01 06:51] LABS: ALANINE AMINOTRANSFERASE 19 U/L (0-55)
--- NOTE | 2020-07-01 09:00 | NUR ---
PT UP TO SIDE OF BED EATING BREAKFAST AT THIS TIME. PT IS NOTICEABLY SHORT OF BREATH TO THIS RN. O2 SATS ARE 77%. THIS RN INCREASES VAPOTHERM TO 40L 100% AND INSTRUCTS PT TO TRY TO SLOW BREATHING; TAKING DEEP BREATHS IN THROUGH THE NOSE. PT ASSISTED TO LYING POSITION. MELINDA ON FLOOR AND NOTIFIED. THIS RN EDUCATES PT ON THE ADVANTAGES OF LYING IN A PRONE POSITION. THIS RN ASSISTS PT INTO PRONE POSITION WITH THE HELP OF DR. LAWRENCE AND RT.
[2020-07-01] MEDS ORDERED: morphine INJ 10 MG/ML 1ML (SYR OR VIAL) IVP STA (09:03)
[2020-07-01] MEDS: morphine INJ 4 MG/ML 1 ML (VIAL/SYRINGE) ONE ×2 (09:07→09:09)
--- NOTE | 2020-07-01 09:27 | Progress Note - Hospitalist ---
Subjective HPI/CC On Admission Date Seen by Provider: Jul 01, 2020 Time Seen by Provider: 09:25 Jaspreet Knutson is an 85-year-old male with past medical history of HTN, COPD, CAD, A. fib on Eliquis, BPH, who presented with shortness of breath. He has been sick for a couple weeks. He has had shortness of breath and cough. He reports sputum production. He has had body aches. He denies chest pain. He denies abdominal pain. He reports nausea. He denies diarrhea. He had been at a [employer] and one of his relatives became sick shortly after. He believes that is when he is exposed. Subjective/Events-last exam Pt reports still feeling well. Discussed with RT and oxygen requirement went up when he sat up to eat breakfast. He states he's feeling well though. Shortly after I left room I was called back as he had worsening hypoxia. He was placed in prone position and Vapotherm settings were maxed. He was maintaining oxygen saturation of 90-91%. Discussed plan to transfer to the ICU due to this. Objective Exam Vital Signs Vital Signs Date Time Temp Pulse Resp B/P (MAP) Pulse Ox O2 Delivery O2 Flow Rate FiO2 07/01/20 08:59 95 40.00 100 07/01/20 08:20 36.6 102 20 134/62 (86) Vapotherm Capillary Refill : Less Than 3 Seconds General Appearance: No Apparent Distress, WD/WN Respiratory: No Accessory Muscle Use; No Crackles; Decreased Breath Sounds, Other (on max Vapotherm) Cardiovascular: Regular Rate, Rhythm, No Murmur Gastrointestinal: Normal Bowel Sounds, Non Tender, Soft Neurologic/Psychiatric: Alert, Oriented x3 Results/Procedures Lab Laboratory Tests 07/01/20 06:10 Patient resulted labs reviewed. Imaging: Reviewed Imaging Report Assessment/Plan Assessment and Plan Assess & Plan/Chief Complaint Acute respiratory failure due to COVID-19 COPD with acute exacerbation Pneumonia Continue Decadron for 10 days Completed Remdesivir and Cefepime Procal added this AM to see if abx need resumed though unlikely as he had no leukocytosis or fever D-dimer added but on Eliquis so again unlikely to be the cause of hypoxia s/p convalescent plasma 1 Continue Eliquis MAT protocol transfer to ICU CAD Continue Plavix AFib Continue Diltiazem, Digoxin, and Eliquis HTN BPH Continue Doxazosin DVT prophylaxis: already receiving therapeutic anticoagulation I called and updated his daughter Marcela and Prudence to this change in status. All questions answered. I called and updated Dr Saldana of this as well who will be assuming care of patient in the ICU. Clinical Quality Measures DVT/VTE Risk/Contraindication: Risk Factor Score Per Nursin RFS Level Per Nursing on Admit: 3=High CHETAN LAWRENCE MD Jul 01, 2020 09:26
--- NOTE | 2020-07-01 10:30 | NUR ---
PT MAINTAINS O2 SATS ABOVE 90% AT THIS TIME ON VAPOTHERM AND LYING PRONE. 1MG MORPHINE WAS GIVEN X1 TO HELP WITH LOWER BACK DISCOMFORT. PT IS TOLERATING POSITION WELL. MELINDA ORDERS TO TRANSFER PT TO ICU FOR CLOSER MONITORING D/T SIGNIFICANT DETERIORATION IN PT CONDITION.
--- NOTE | 2020-07-01 11:00 | Physical Therapy Progress Note ---
Therapy Progress Note Hold PT this date. Per RN pt moving to higher level of care. Will need new orders when pt is ready for new PT evaluation. SACHIN NELSON PT Jul 01, 2020 11:00
--- NOTE | 2020-07-01 11:50 | NUR ---
PT TRANSFERRED TO ICU 3 AT THIS TIME VIA BED. PT IS PLACED ON NON REBREATHER AT 15L FOR TRANSFER. PT TOLERATED WELL.
[2020-07-01] MEDS: CLOPIDOGREL 75 MG (PLAVIX) TABLET PO SCH (13:03)
[2020-07-01] MEDS: DIGOXIN 0.25 MG (LANOXIN) TAB PO SCH (13:03)
[2020-07-01] MEDS: DOCUSATE SODIUM 100 MG (COLACE) CAP PO SCH ×2 (13:03→20:00)
[2020-07-01] MEDS: APIXABAN 5 MG (ELIQUIS) TABLET PO SCH ×2 (13:03→20:00)
--- NOTE | 2020-07-01 14:31 | Diagnostic Imaging Report ---
Clinical indications: Patient with respiratory failure. Exam: Portable chest x-ray upright view. Comparisons: Chest x-ray dated 06/30/2020. Findings: There are diffuse bilateral lung patchy infiltrates bilaterally which is not significantly changed in interim. There is no pleural effusion pneumothorax. Pulmonary vasculature shows no significant abnormality. Cardiac silhouette is within normal limits. There are degenerative spurs involving the thoracic spine. IMPRESSION: Stable diffuse bilateral lung infiltrates concerning for pneumonia. Dictated by: Dictated on workstation # [id number]
[2020-07-01] MEDS: doxAzosin 2 MG (CARDURA) TAB PO SCH ×2 (14:44→20:00)
--- NOTE | 2020-07-01 17:38 | NUR ---
THIS RN CALLED PT'S AND DAUGHTER AND PROVIDED UPDATE.
[2020-07-01] MEDS: RT-ALBUTEROL INHALER HFA (VENTOLIN HFA) 18 GM IH PRN ×2 (18:30→21:23)
[2020-07-01] MEDS: ACETAMINOPHEN 500 MG TAB (TYLENOL) PO PRN (20:02)
[2020-07-02] VITALS (25 sets, daily range): BP systolic 104–165; BP diastolic 43–92
[2020-07-02] MEDS: RT-ALBUTEROL INHALER HFA (VENTOLIN HFA) 18 GM IH PRN ×2 (01:24→07:25)
[2020-07-02] MEDS: RT-ALBUTEROL INHALER HFA (VENTOLIN HFA) 18 GM IH SCH ×6 (01:24→22:02)
[2020-07-02 03:53] LABS: BASOPHILS % (AUTO) 0 % (0-10); EOSINOPHILS # (AUTO) 0.1 10^3/uL (0.0-0.3); EOSINOPHILS % (AUTO) 1 % (0-10); HEMATOCRIT 35 % (40-54); HEMOGLOBIN 11.4 g/dL (13.3-17.7); LYMPHOCYTES # (AUTO) 0.4 10^3/uL (1.0-4.0); LYMPHOCYTES % (AUTO) 5 % (12-44); MEAN CORPUSCULAR HEMOGLOBIN 28 pg (25-34); MEAN CORPUSCULAR HGB CONC 32 g/dL (32-36); MEAN CORPUSCULAR VOLUME 86 fL (80-99); MEAN PLATELET VOLUME 10.9 fL (9.0-12.2); MONOCYTES # (AUTO) 0.2 10^3/uL (0.0-1.0); MONOCYTES % (AUTO) 2 % (0-12); NEUTROPHILS # (AUTO) 7.8 10^3/uL (1.8-7.8); NEUTROPHILS % (AUTO) 91 % (42-75); PLATELET COUNT 222 10^3/uL (130-400); WHITE BLOOD COUNT 8.5 10^3/uL (4.3-11.0)
[2020-07-02 04:02] LABS: INR 1.5 (0.8-1.4); PROTHROMBIN TIME PATIENT 18.7 SEC (12.2-14.7)
[2020-07-02 04:05] LABS: ALBUMIN 2.7 GM/DL (3.2-4.5); CHLORIDE 100 MMOL/L (98-107); POTASSIUM 4.4 MMOL/L (3.6-5.0); SODIUM 136 MMOL/L (135-145)
[2020-07-02 04:06] LABS: CALCIUM 8.3 MG/DL (8.5-10.1)
[2020-07-02 04:08] LABS: GLUCOSE 160 MG/DL (70-105); TOTAL PROTEIN 5.8 GM/DL (6.4-8.2)
[2020-07-02 04:09] LABS: BILIRUBIN,TOTAL 0.6 MG/DL (0.1-1.0); CARBON DIOXIDE 27 MMOL/L (21-32)
[2020-07-02 04:11] LABS: ALKALINE PHOSPHATASE 69 U/L (40-136); CREATININE SERUM 0.82 MG/DL (0.60-1.30); GFR ESTIMATED > 60
[2020-07-02 04:12] LABS: BUN/CREATININE RATIO 27
[2020-07-02 04:14] LABS: ALANINE AMINOTRANSFERASE 20 U/L (0-55)
[2020-07-02] MEDS: inSUlin ASPART (NovoLOG) 1 UNIT/0.01 ML (CHARGE PER UNIT) SC SCH ×4 (07:00→20:13)
[2020-07-02] MEDS: DIGOXIN 0.25 MG (LANOXIN) TAB PO SCH (08:18)
[2020-07-02] MEDS: CLOPIDOGREL 75 MG (PLAVIX) TABLET PO SCH (08:18)
[2020-07-02] MEDS: DOCUSATE SODIUM 100 MG (COLACE) CAP PO SCH ×2 (08:18→20:14)
[2020-07-02] MEDS: doxAzosin 2 MG (CARDURA) TAB PO SCH ×2 (08:18→20:14)
[2020-07-02] MEDS: APIXABAN 5 MG (ELIQUIS) TABLET PO SCH ×2 (08:18→20:14)
[2020-07-02] MEDS: ONDANSETRON 4 MG/2 ML (SDV) Z0FRAN IV PRN (08:18)
--- NOTE | 2020-07-02 10:44 | Progress Note - Hospitalist ---
HIRALJOSEGONZALES, 07/02/20 1044: Subjective HPI/CC On Admission Time Seen by Provider: 09:38 Jaspreet Knutson is an 85-year-old male with past medical history of HTN, COPD, CAD, A. fib on Eliquis, BPH, who presented with shortness of breath. He has been sick for a couple weeks. He has had shortness of breath and cough. He reports sputum production. He has had body aches. He denies chest pain. He denies abdominal pain. He reports nausea. He denies diarrhea. He had been at a [employer] and one of his relatives became sick shortly after. He believes that is when he is exposed. Subjective/Events-last exam Mr. Knutson was seen and examined by Dr. Nguyen in the ICU for acute respiratory failure secondary to COVID19 infection. He denies concerns today and states he is a bit hungry. Currently on vapotherm 100%/40. Will de-saturate with eating and motion. Attempting to prone and will lay on his side as tolerated. Objective Exam Vital Signs Vital Signs Date Time Temp Pulse Resp B/P (MAP) Pulse Ox O2 Delivery O2 Flow Rate FiO2 07/02/20 11:00 78 20 125/50 (75) 92 Vapotherm 35.00 80.00 07/02/20 10:10 100 07/02/20 07:38 36.6 Capillary Refill : Less Than 3 Seconds General Appearance: No Apparent Distress Respiratory: Crackles Cardiovascular: Regular Rate, Rhythm, Normal Peripheral Pulses Gastrointestinal: Soft Results/Procedures Lab Laboratory Tests 07/02/20 02:50 Patient resulted labs reviewed. Imaging: Reviewed Imaging Report Assessment/Plan Assessment and Plan Assess & Plan/Chief Complaint Acute respiratory failure secondary to COVID19 infection COPD with acute exacerbation Pneumonia Pulmonary fibrosis * On vapotherm 100%/40 * Decadron 10 doses completed today, 07/02 * Completed Remdesivir and Cefepime * Procal 1.42, down from prior * D-dimer 1.71, but already on therapeutic Eliquis * s/p convalescent plasma 1 * Continue Eliquis * MAT protocol CAD * Continue Plavix AFib * Continue Diltiazem, Digoxin, and Eliquis * Tele * CHADsVASc 4 HTN BPH * Continue Doxazosin Diet: CHO 60 DVT prophylaxis: already receiving therapeutic anticoagulation FULL CODE Clinical Quality Measures DVT/VTE Risk/Contraindication: Risk Factor Score Per Nursin RFS Level Per Nursing on Admit: 3=High VALERIA NGUYEN MD 07/02/20 1142: Subjective HPI/CC On Admission Date Seen by Provider: Jul 02, 2020 Supervisory-Addendum Brief Verification & Attestation Participated in pt care: history, MDM, physical Personally performed: exam, history, MDM Care discussed with: Medical Student, other (Respiratory therapist, nurse) Procedures: n/a Verification and Attestation of Medical Student E/M Service A medical student performed and documented this service in my presence. I reviewed and verified all information documented by the medical student and made modifications to such information, when appropriate. I personally performed the physical exam and medical decision making. Valeria Nguyen, Jul 02, 2020,11:41 Patient would become dyspneic with moving around and with eating. He is on maximum Vapotherm and prognosis is guarded. GONZALES MUSE, Jul 02, 2020 10:44 VALERIA NGUYEN MD Jul 02, 2020 11:42
--- NOTE | 2020-07-02 11:11 | NUR ---
THIS RN ATTEMPTED TO CALL PT'S AND PT'S DAUGHTER TO PROVIDE UPDATE. NO ANSWER FROM EITHER NUMBER PROVIDED.
--- NOTE | 2020-07-02 12:12 | NUR ---
THIS RN SPOKE WITH PT'S AND DAUGHTER AND PROVIDED UPDATE.
[2020-07-02] MEDS: ACETAMINOPHEN 500 MG TAB (TYLENOL) PO PRN (20:16)
[2020-07-03] VITALS (23 sets, daily range): BP systolic 113–165; BP diastolic 41–80
[2020-07-03] MEDS: RT-ALBUTEROL INHALER HFA (VENTOLIN HFA) 18 GM IH PRN (01:35)
[2020-07-03 03:47] LABS: BASOPHILS % (AUTO) 0 % (0-10); EOSINOPHILS % (AUTO) 0 % (0-10); HEMATOCRIT 36 % (40-54); HEMOGLOBIN 11.5 g/dL (13.3-17.7); LYMPHOCYTES # (AUTO) 0.3 10^3/uL (1.0-4.0); LYMPHOCYTES % (AUTO) 4 % (12-44); MEAN CORPUSCULAR HEMOGLOBIN 28 pg (25-34); MEAN CORPUSCULAR HGB CONC 32 g/dL (32-36); MEAN CORPUSCULAR VOLUME 86 fL (80-99); MEAN PLATELET VOLUME 10.5 fL (9.0-12.2); MONOCYTES # (AUTO) 0.3 10^3/uL (0.0-1.0); MONOCYTES % (AUTO) 3 % (0-12); NEUTROPHILS # (AUTO) 7.7 10^3/uL (1.8-7.8); NEUTROPHILS % (AUTO) 92 % (42-75); PLATELET COUNT 219 10^3/uL (130-400); WHITE BLOOD COUNT 8.4 10^3/uL (4.3-11.0)
[2020-07-03 04:03] LABS: ALBUMIN 2.7 GM/DL (3.2-4.5); CHLORIDE 99 MMOL/L (98-107); POTASSIUM 4.6 MMOL/L (3.6-5.0); SODIUM 135 MMOL/L (135-145)
[2020-07-03 04:04] LABS: CALCIUM 8.5 MG/DL (8.5-10.1)
[2020-07-03 04:05] LABS: GLUCOSE 191 MG/DL (70-105)
[2020-07-03 04:06] LABS: CARBON DIOXIDE 27 MMOL/L (21-32)
[2020-07-03 04:07] LABS: BILIRUBIN,TOTAL 0.4 MG/DL (0.1-1.0)
[2020-07-03 04:09] LABS: ALKALINE PHOSPHATASE 72 U/L (40-136); CREATININE SERUM 0.82 MG/DL (0.60-1.30); GFR ESTIMATED > 60
[2020-07-03 04:10] LABS: BUN/CREATININE RATIO 27
[2020-07-03 04:12] LABS: ALANINE AMINOTRANSFERASE 21 U/L (0-55)
[2020-07-03] MEDS: POTASSIUM CL 10MEQ/50ML IVPB 50 ML IV SCH (04:18)
[2020-07-03] MEDS: MAGNESIUM 1 GM/100 ML IVPB 100 ML IV SCH (04:19)
[2020-07-03] MEDS: KCL 20 MEQ TAB (K-DUR) PO SCH (04:19)
--- NOTE | 2020-07-03 05:03 | Pulmonary Consultation ---
History of Present Illness History of Present Illness Date Seen by Provider: Jul 03, 2020 Time Seen by Provider: 04:59 Date of Admission Allergies and Home Medications Allergies Coded Allergies: Iodine and Iodide Containing Produc (Verified Allergy, Unknown, 06/22/20) itching and swelling Home Medications Albuterol Sulfate 1 Puff Puff, 2 PUFF INH QID PRN for WHEEZING, (Reported) Apixaban 5 Mg Tablet, 5 MG PO BID, (Reported) Clopidogrel Bisulfate 75 Mg Tablet, 75 MG PO DAILY, (Reported) Digoxin 250 Mcg Tablet, 250 MCG PO DAILY, (Reported) Diltiazem HCl 240 Mg Capsule.er, 240 MG PO DAILY, (Reported) Docusate Sodium 100 Mg Tablet, 100 MG PO BID, (Reported) Doxazosin Mesylate 4 Mg Tablet, 2 MG PO BID, (Reported) TAKES OF A 4MG TAB Gabapentin 100 Mg Capsule, 100-200 MG PO Q8H PRN for NEUROPATHIC PAIN, (Reported) Metformin HCl 500 Mg Tablet, 500 MG PO DAILY PRN for BLOOD SUGAR OVER 150, (Reported) Ubidecarenone 10 Mg Capsule, 10 MG PO DAILY, (Reported) Vit A,C & E/Lutein/Minerals 1 Each Tablet, 1 EACH PO DAILY, (Reported) Past Icsgjyl-Bxrdet-Eovjcv Hx Past Med/Social Hx: Reviewed Nursing Past Med/Soc Hx Patient Social History Alcohol Use: Denies Use Smoking Status: Never a Smoker Type Used: Cigarettes Recent Infectious Disease Expo: No Recent Hopitalizations: No Immunizations Up To Date Date of Pneumonia Vaccine: Apr 02, 2018 Date of Influenza Vaccine: Mar 18, 2020 Seasonal Allergies Seasonal Allergies: Yes Past Medical History Surgeries: Yes (BILAT TKR, hands) Coronary Stent, Gallbladder, Orthopedic, Vasectomy Respiratory: Yes (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) COPD Cardiac: Yes (stent) Coronary Artery Disease, Heart Attack, High Cholesterol, Hypertension Neurological: No Reproductive Disorders: No Sexually Transmitted Disease: No HIV/AIDS: No Benign Prostatic Hyperpl, Bladder Infection, Renal Failure Gastrointestinal: Yes (HEMMACULT POSITIVE) Chronic Constipation Musculoskeletal: No Endocrine: No Diabetes, Non-Insulin dep Loss of Vision: Bilateral Hearing Impairment: Denies Cancer: No Psychosocial: No Integumentary: No Blood Disorders: Yes (MILD ANEMIA) Adverse Reaction/Blood Tranf: No Family Medical History Aortic stenosis 19 FATHER FH: brain cancer G8 BROTHER FH: lung cancer G8 BROTHER FH: stroke 19 MOTHER Hypertension 19 MOTHER Review of Systems Time Seen by Provider: 05:06 Sepsis Event Evaluation Height, Weight, BMI Height: 5'8.00" Weight: 190lbs. 0.6oz. 86.602339mv; 30.14 BMI Method:Stated Exam Exam Vital Signs Date Time Temp Pulse Resp B/P (MAP) Pulse Ox O2 Delivery O2 Flow Rate FiO2 07/03/20 01:35 96 Vapotherm 40.00 70 07/03/20 01:00 55 07/03/20 00:34 50 98 Vapotherm 40.00 70.00 07/03/20 00:00 52 22 118/56 (76) 99 Vapotherm 40.00 90.00 07/02/20 23:00 57 20 114/47 (81) 98 Vapotherm 40.00 90.00 07/02/20 22:02 99 Vapotherm 40.00 90 07/02/20 22:00 57 17 117/46 (74) 98 Vapotherm 40.00 90.00 07/02/20 21:00 66 17 113/44 (65) 98 Vapotherm 40.00 90.00 07/02/20 20:10 71 20 150/92 (111) 95 Vapotherm 40.00 90.00 07/02/20 20:00 68 29 150/92 (112) 92 Vapotherm 40.00 90.00 07/02/20 20:00 Vapotherm 40.00 90 07/02/20 19:16 36.7 07/02/20 19:00 66 07/02/20 19:00 66 27 138/46 (77) 96 Vapotherm 40.00 90.00 07/02/20 18:12 96 Vapotherm 40.00 90 07/02/20 18:00 72 23 146/86 (106) 97 Vapotherm 40.00 90.00 07/02/20 17:00 82 38 165/74 (104) 95 Vapotherm 40.00 90.00 07/02/20 16:00 62 33 143/61 (88) 91 Vapotherm 40.00 90.00 07/02/20 15:03 36.9 07/02/20 15:00 77 22 157/77 (103) 94 Vapotherm 40.00 90.00 07/02/20 14:00 71 26 108/47 (67) 91 Vapotherm 40.00 90.00 07/02/20 13:58 Vapotherm 40.00 90.00 07/02/20 13:47 89 Vapotherm 40.00 90 07/02/20 13:12 Vapotherm 40.00 80.00 07/02/20 13:00 67 07/02/20 13:00 74 38 130/57 (88) 89 Vapotherm 40.00 90.00 07/02/20 12:00 70 147/68 (99) 94 Vapotherm 40.00 90.00 07/02/20 12:00 37.0 07/02/20 11:42 Vapotherm 40.00 90.00 07/02/20 11:00 78 20 125/50 (75) 92 Vapotherm 35.00 80.00 07/02/20 10:10 93 Vapotherm 40.00 100 07/02/20 10:00 87 10 130/69 (89) 93 Vapotherm 35.00 80.00 07/02/20 09:00 64 134/47 (76) 98 Vapotherm 35.00 80.00 07/02/20 08:08 Vapotherm 40.00 100 07/02/20 08:00 62 28 135/50 (78) 95 Vapotherm 35.00 80.00 07/02/20 07:38 36.6 07/02/20 07:25 92 Vapotherm 40.00 100 07/02/20 07:00 70 07/02/20 07:00 67 24 145/77 (99) 92 Vapotherm 35.00 80.00 07/02/20 06:00 65 20 155/51 (85) 92 Vapotherm 35.00 80.00 07/02/20 05:00 63 21 138/56 (83) 94 Vapotherm 35.00 80.00 I & O 07/03/20 07:00 Intake Total 2225 ml Output Total 2030 ml Balance 195 ml Height & Weight Height: 5'8.00" Weight: 190lbs. 0.6oz. 86.207249if; 30.14 BMI Method:Stated General Appearance: No Apparent Distress HEENT: PERRL/EOMI, Pharynx Normal Neck: Normal Inspection, Supple Respiratory: Crackles Cardiovascular: Regular Rate, Rhythm, Normal Peripheral Pulses Capillary Refill: Less Than 3 Seconds Gastrointestinal: normal bowel sounds, non tender, soft Extremity: No Calf Tenderness, No Pedal Edema Neurologic/Psychiatric: Alert, Oriented x3 Skin: Normal Color, Warm/Dry Results Lab Laboratory Tests 07/01/20 06:10 07/02/20 02:50 07/03/20 02:59 Assessment/Plan Assessment/Plan Acute respiratory failure secondary to COVID -S/p CVP and Remdesivir -Decadron COPDAE -Steroids -Breathing treatments Pneumonia -CXR shows worsening -Start Zosyn CAD -Plavid Afib hx -monitor ANANYA SCHRADER DO Jul 03, 2020 05:03
[2020-07-03] MEDS ORDERED: PIPERACILLIN/TAZOBACTAM (BULK) 4.5 GM in NS (IVPB) 100 ML IV SCH (05:15)
[2020-07-03] MEDS ORDERED: FAMOTIDINE 20 MG (PEPCID) TABLET PO PRN (05:15)
[2020-07-03] MEDS ORDERED: PIPERACILLIN/TAZOBACTAM 4.5 GM in NS (IVPB) 100 ML IV ONE (05:15)
[2020-07-03] MEDS ORDERED: PIPERACILLIN/TAZO 4.5 GM VIAL (ZOSYN) IV ONE (05:40)
[2020-07-03] MEDS: inSUlin ASPART (NovoLOG) 1 UNIT/0.01 ML (CHARGE PER UNIT) SC SCH ×4 (06:34→20:14)
[2020-07-03] MEDS: ACETAMINOPHEN 500 MG TAB (TYLENOL) PO PRN ×2 (06:37→20:14)
[2020-07-03] MEDS: RT-ALBUTEROL INHALER HFA (VENTOLIN HFA) 18 GM IH SCH ×5 (06:44→21:52)
[2020-07-03 06:51] LABS: BILIRUBIN,URINE NEGATIVE (NEGATIVE); CLARITY,URINE CLEAR; COLOR,URINE YELLOW; GLUCOSE, URINE (UA) NEGATIVE (NEGATIVE); KETONES,URINE NEGATIVE (NEGATIVE); LEUKOCYTE ESTERASE ,URINE TRACE (NEGATIVE); NITRITE,URINE NEGATIVE (NEGATIVE); PH,URINE 7.5 (5-9); PROTEIN,URINE TRACE (NEGATIVE)
[2020-07-03 07:02] LABS: BACTERIA,URINE MODERATE /HPF; RBC,URINE 0-2 /HPF
--- NOTE | 2020-07-03 08:00 | Physical Therapy Progress Note ---
Therapy Progress Note Patient transferred to ICU secondary to pulmonary demand. PT will require new orders when patient is able to actively participate with skilled therapy. Patient is currently on 100% Vapotherm. CHARLIE SONI PT Jul 03, 2020 08:00
[2020-07-03] MEDS: APIXABAN 5 MG (ELIQUIS) TABLET PO SCH ×2 (08:03→20:14)
[2020-07-03] MEDS: DOCUSATE SODIUM 100 MG (COLACE) CAP PO SCH ×2 (08:03→20:14)
[2020-07-03] MEDS: DIGOXIN 0.25 MG (LANOXIN) TAB PO SCH (08:04)
[2020-07-03] MEDS: CLOPIDOGREL 75 MG (PLAVIX) TABLET PO SCH (08:04)
--- NOTE | 2020-07-03 08:21 | Diagnostic Imaging Report ---
CHEST 1 VIEW, AP/PA ONLY Indication: Covid-19 pneumonia. Comparison: 07/01/2020 Findings: Allowing for differences in technique, there appears to be slight worsening of left mid and upper lung zone consolidations. No pleural effusion or pneumothorax. Stable cardiomediastinal silhouette. Impression: 1. Mild worsening of left-sided consolidations which are likely due to patient's known Covid-19 pneumonia. Dictated by: Dictated on workstation # [id number]
[2020-07-03] MEDS: doxAzosin 2 MG (CARDURA) TAB PO SCH ×2 (10:00→20:14)
[2020-07-03] MEDS: PIPERACILLIN/TAZO 4.5 GM/NS 100 ML IV SCH ×4 (11:26→18:15)
--- NOTE | 2020-07-03 12:21 | NUR ---
Spoke with daughter and at this time, and updated on pt condition.
--- NOTE | 2020-07-03 14:27 | Physical Therapy Progress Note ---
Therapy Progress Note Received order to continue with PT. Consulted with RN to begin in a.m. due to current pulmonary demand. CHARLIE SONI PT Jul 03, 2020 14:27
--- NOTE | 2020-07-03 17:48 | NUR ---
Spoke with daughter and at this time, updated on pt condition.
[2020-07-04] VITALS (20 sets, daily range): BP systolic 123–179; BP diastolic 40–91
[2020-07-04] MEDS: RT-ALBUTEROL INHALER HFA (VENTOLIN HFA) 18 GM IH SCH ×6 (02:10→22:56)
[2020-07-04] MEDS: PIPERACILLIN/TAZO 4.5 GM/NS 100 ML IV SCH ×6 (03:02→18:13)
[2020-07-04] MEDS: ACETAMINOPHEN 500 MG TAB (TYLENOL) PO PRN ×2 (03:02→16:42)
[2020-07-04 03:32] LABS: BASOPHILS % (AUTO) 0 % (0-10); EOSINOPHILS % (AUTO) 0 % (0-10); HEMATOCRIT 36 % (40-54); HEMOGLOBIN 11.9 g/dL (13.3-17.7); LYMPHOCYTES # (AUTO) 0.4 10^3/uL (1.0-4.0); LYMPHOCYTES % (AUTO) 5 % (12-44); MEAN CORPUSCULAR HEMOGLOBIN 28 pg (25-34); MEAN CORPUSCULAR HGB CONC 33 g/dL (32-36); MEAN CORPUSCULAR VOLUME 85 fL (80-99); MEAN PLATELET VOLUME 10.3 fL (9.0-12.2); MONOCYTES # (AUTO) 0.4 10^3/uL (0.0-1.0); MONOCYTES % (AUTO) 5 % (0-12); NEUTROPHILS # (AUTO) 6.9 10^3/uL (1.8-7.8); NEUTROPHILS % (AUTO) 89 % (42-75); PLATELET COUNT 239 10^3/uL (130-400); WHITE BLOOD COUNT 7.7 10^3/uL (4.3-11.0)
[2020-07-04 03:50] LABS: ALBUMIN 2.9 GM/DL (3.2-4.5); CHLORIDE 98 MMOL/L (98-107); POTASSIUM 4.5 MMOL/L (3.6-5.0); SODIUM 135 MMOL/L (135-145)
[2020-07-04 03:51] LABS: CALCIUM 8.6 MG/DL (8.5-10.1)
[2020-07-04 03:53] LABS: GLUCOSE 185 MG/DL (70-105); TOTAL PROTEIN 6.2 GM/DL (6.4-8.2)
[2020-07-04 03:54] LABS: CARBON DIOXIDE 27 MMOL/L (21-32)
[2020-07-04 03:55] LABS: BILIRUBIN,TOTAL 0.4 MG/DL (0.1-1.0)
[2020-07-04 03:56] LABS: ALKALINE PHOSPHATASE 75 U/L (40-136); CREATININE SERUM 0.85 MG/DL (0.60-1.30); GFR ESTIMATED > 60; PHOSPHORUS 3.9 MG/DL (2.3-4.7)
[2020-07-04 03:57] LABS: BUN/CREATININE RATIO 27
[2020-07-04 03:59] LABS: ALANINE AMINOTRANSFERASE 31 U/L (0-55); MAGNESIUM 2.1 MG/DL (1.6-2.4)
--- NOTE | 2020-07-04 04:38 | Pulmonary Progress Note ---
Subjective Date Seen by a Provider: Jul 04, 2020 Time Seen by a Provider: 04:32 Subjective/Events-last exam No complications noted. Sepsis Event Evaluation Height, Weight, BMI Height: 5'8.00" Weight: 190lbs. 0.6oz. 86.088244ps; 30.14 BMI Method:Stated Exam Exam Vital Signs Date Time Temp Pulse Resp B/P (MAP) Pulse Ox O2 Delivery O2 Flow Rate FiO2 07/04/20 02:10 96 Vapotherm 30.00 70 07/04/20 01:00 63 07/03/20 23:14 36.4 07/03/20 21:52 91 Vapotherm 30.00 70 07/03/20 20:08 70 16 142/51 (81) 93 Vapotherm 30.00 70.00 07/03/20 20:00 93 Vapotherm 30.00 70 07/03/20 19:25 37.1 07/03/20 19:00 70 07/03/20 18:28 92 Vapotherm 30.00 70 07/03/20 18:00 64 12 150/73 (98) 94 Vapotherm 30.00 70.00 07/03/20 17:00 66 27 164/74 (104) 96 Vapotherm 30.00 70.00 07/03/20 16:00 64 26 165/80 (108) 98 Vapotherm 30.00 70.00 07/03/20 15:33 36.6 07/03/20 15:00 67 16 140/74 (96) 91 Vapotherm 30.00 70.00 07/03/20 14:47 93 Vapotherm 30.00 70 07/03/20 14:00 63 11 142/66 (91) 96 Vapotherm 30.00 70.00 07/03/20 13:00 70 21 146/62 (90) 97 Vapotherm 30.00 70.00 07/03/20 12:47 Vapotherm 30.00 70.00 07/03/20 12:39 67 07/03/20 12:00 59 23 146/74 (98) 95 Vapotherm 40.00 60.00 07/03/20 11:22 36.2 07/03/20 11:00 58 21 151/69 (96) 100 Vapotherm 40.00 60.00 07/03/20 10:17 94 Vapotherm 30.00 80 07/03/20 10:00 57 22 134/63 (86) 94 Vapotherm 40.00 60.00 07/03/20 08:06 92 Vapotherm 30.00 70 07/03/20 08:00 63 14 124/57 (79) 90 Vapotherm 40.00 60.00 07/03/20 07:33 36.1 07/03/20 06:39 64 07/03/20 06:00 57 135/60 (85) 88 Vapotherm 40.00 60.00 07/03/20 05:00 54 113/49 (70) 97 Vapotherm 40.00 60.00 I & O 07/04/20 07:00 Intake Total 2300 ml Output Total 2175 ml Balance 125 ml Height & Weight Height: 5'8.00" Weight: 190lbs. 0.6oz. 86.978040yq; 30.14 BMI Method:Stated General Appearance: No Apparent Distress HEENT: PERRL/EOMI, Pharynx Normal Neck: Normal Inspection, Supple Respiratory: Crackles Cardiovascular: Regular Rate, Rhythm, Normal Peripheral Pulses Capillary Refill: Less Than 3 Seconds Gastrointestinal: normal bowel sounds, non tender, soft Extremity: No Calf Tenderness, No Pedal Edema Neurologic/Psychiatric: Alert, Oriented x3 Skin: Normal Color, Warm/Dry Results Lab Laboratory Tests 07/03/20 02:59 07/04/20 02:57 Assessment/Plan Assessment/Plan Acute respiratory failure secondary to COVID -S/p CVP and Remdesivir -Decadron COPDAE -Steroids -Breathing treatments Pneumonia -CXR shows worsening -Start Zosyn CAD -Plavid Afib hx -monitor I called and discussed with family. I answered all questions to the best of my ability. ANANYA SCHRADER DO Jul 04, 2020 04:38
[2020-07-04] MEDS ORDERED: FUROSEMIDE 40 MG/4 ML INJ (LASIX) IVP ONE (04:45)
[2020-07-04] MEDS: KCL 20 MEQ TAB (K-DUR) PO SCH (04:55)
[2020-07-04] MEDS: POTASSIUM CL 10MEQ/50ML IVPB 50 ML IV SCH (04:55)
[2020-07-04] MEDS: MAGNESIUM 1 GM/100 ML IVPB 100 ML IV SCH (04:55)
[2020-07-04] MEDS: inSUlin ASPART (NovoLOG) 1 UNIT/0.01 ML (CHARGE PER UNIT) SC SCH ×4 (04:57→21:52)
--- NOTE | 2020-07-04 07:52 | Diagnostic Imaging Report ---
EXAMINATION: Chest 1 view HISTORY: Covid-19 COMPARISON: Chest radiograph 07/03/2020. FINDINGS: Heart size and pulmonary vasculature are normal. Calcification of the aorta. Stable patchy interstitial and airspace opacities throughout both lungs, left greater than right. No pneumothorax. The right costophrenic angle is not entirely visualized. The left costophrenic angle is mildly blunted. The osseous structures are intact. IMPRESSION: 1. Stable patchy interstitial airspace opacities compatible with Covid-19 pneumonia. 2. Trace blunting of the left costophrenic angle which can be seen with a trace pleural effusion. Dictated by: Dictated on workstation # [id number]
[2020-07-04] MEDS: doxAzosin 2 MG (CARDURA) TAB PO SCH ×2 (08:18→20:27)
[2020-07-04] MEDS: DOCUSATE SODIUM 100 MG (COLACE) CAP PO SCH ×2 (08:18→20:28)
[2020-07-04] MEDS: DIGOXIN 0.25 MG (LANOXIN) TAB PO SCH (08:18)
[2020-07-04] MEDS: APIXABAN 5 MG (ELIQUIS) TABLET PO SCH ×2 (08:18→20:27)
[2020-07-04] MEDS: CLOPIDOGREL 75 MG (PLAVIX) TABLET PO SCH (08:18)
[2020-07-04] MEDS ORDERED: FAMOTIDINE 20 MG (PEPCID) TABLET PO SCH (09:00)
--- NOTE | 2020-07-04 11:14 | NUR ---
PT ASSISTED TO RECLINER. TOLERATED WELL WITHOUT DIFFICULTIES. PT DENIES ANY SOA. OXYGEN SATS REMAINED GREATER THAN 91% DURING ACTIVITY. CALL LIGHT WITHIN REACH. PERSONAL BAG FROM FAMILY GIVEN TO PATIENT AT THIS TIME.
--- NOTE | 2020-07-04 11:19 | NUR ---
SPOKE WITH PATIENTS PRUDENCE AND UPDATED ON PATIENT CONDITION. ALL QUESTIONS ANSWERED WITH NO FURTHER CONCERNS VOICED.
--- NOTE | 2020-07-04 13:57 | NUR ---
PT PARTICIPATED WITH PT. PT DID HAVE DESATS DOWN TO 82% WHILE MARCHING IN PLACE BUT RECOVERED TO 91% WITHIN 3 MINUTES. TOLERATED WELL.
--- NOTE | 2020-07-04 14:20 | Physical Therapy Daily Note ---
PT Daily Note-Current Subjective Patient agrees to PT. Mental Status Patient Orientation: Normal For Age Attachments: Oxygen (vapotherm), Tellez Catheter, IV Transfers SCALE: Activities may be completed with or without assistive devices. 7-Pijojbrprp-lubclrm completes the activity by him/herself with no assistance from a helper. 5-Set-up or Clean-up Assistance-helper sets up or cleans up; patient completes activity. [place] assists only prior to or following the activity. 4-Supervision or Touching Assistance-helper provides verbal cues and/or touching/steadying and/or contact guard assistance as patient completes activity. Assistance may be provided throughout the activity or intermittently. 3-Partial/Moderate Assistance-helper does LESS THAN HALF the effort. [place] lifts, holds or supports trunk or limbs, but provides less than half the effort. 2-Substantial/Maximal Assistance-helper does MORE THAN HALF the effort. [place] lifts or holds trunk or limbs and provides more than half the effort. 1-Kdnfbrdrd-tfczkn does ALL the effort. Patient does none of the effort to complete the activity. Or, the assistance of 2 or more helpers is required for the patient to complete the activity. If activity was not attempted, code reason: 7-Patient Refused. 9-Not Applicable-not attempted and the patient did not perform the activity before the current illness, exacerbation or injury. 10-Not Attempted due to Environmental Limitations-(lack of equipment, weather restraints, etc.). 88-Not Attempted due to Medical Conditions or Safety Concerns. Sit to Lying (QC): 5 Lying to Sitting/Side of Bed(Q: 5 Sit to Stand (QC): 5 Chair/Epd-er-Uzawi Xfer(QC): 5 Gait Training Does the Patient Walk?: No and Walking Goal IS indicated (restricted by vapotherm) Exercises Standing: Marching, Mini squats Standing Reps: 20 (2 sets with decreased SAO2 to 82% with 2 minute recovery) Treatments Patient has been instructed to perform standing exercises PRN. RN notified. Assessment Patient evaluated secondary to transfer to ICU secondary to pulmonary demand. Patient will continue to require skilled therapy to address pulmonary function. Goals remain the same. PT Cooper Helper Goals Cooper Helper Goals PT Cooper Helper Goals Time Frame: Jul 15, 2020 Roll Left & Right (QC): 6 Sit to Lying (QC): 6 Lying-Sitting on Side/Bed(QC): 6 Sit to Stand (QC): 6 Chair/Swv-zd-Nljqs Xfer(QC): 6 Walk 10 feet (QC): 6 Walk 50ft with 2 Turns (QC): 6 PT Plan Treatment/Plan Treatment Plan: Continue Plan of Care Treatment Plan: Education, Functional Activity Rubens, Functional Strength, Gait, Safety, Therapeutic Exercise, Transfers Treatment Duration: Jul 15, 2020 Frequency: 6 times per week Estimated Hrs Per Day: .25 hour per day Patient and/or Family Agrees t: Yes Time/GCodes Time In: 1335 Time Out: 1348 Total Billed Treatment Time: 13 Total Billed Treatment 1 visit EVMod 13 min CHARLIE SONI PT Jul 04, 2020 14:20
[2020-07-05] VITALS (13 sets, daily range): BP systolic 106–167; BP diastolic 55–82
[2020-07-05] MEDS: ACETAMINOPHEN 500 MG TAB (TYLENOL) PO PRN ×3 (01:06→20:41)
[2020-07-05] MEDS: RT-ALBUTEROL INHALER HFA (VENTOLIN HFA) 18 GM IH SCH ×6 (02:04→22:43)
[2020-07-05] MEDS: PIPERACILLIN/TAZO 4.5 GM/NS 100 ML IV SCH ×6 (02:24→17:57)
[2020-07-05 04:16] LABS: BASOPHILS % (AUTO) 0 % (0-10); EOSINOPHILS % (AUTO) 0 % (0-10); HEMATOCRIT 36 % (40-54); HEMOGLOBIN 11.8 g/dL (13.3-17.7); LYMPHOCYTES # (AUTO) 0.6 10^3/uL (1.0-4.0); LYMPHOCYTES % (AUTO) 6 % (12-44); MEAN CORPUSCULAR HEMOGLOBIN 28 pg (25-34); MEAN CORPUSCULAR HGB CONC 33 g/dL (32-36); MEAN CORPUSCULAR VOLUME 84 fL (80-99); MEAN PLATELET VOLUME 10.3 fL (9.0-12.2); MONOCYTES # (AUTO) 0.6 10^3/uL (0.0-1.0); MONOCYTES % (AUTO) 6 % (0-12); NEUTROPHILS # (AUTO) 8.1 10^3/uL (1.8-7.8); NEUTROPHILS % (AUTO) 87 % (42-75); PLATELET COUNT 209 10^3/uL (130-400); WHITE BLOOD COUNT 9.4 10^3/uL (4.3-11.0)
[2020-07-05 04:28] LABS: CHLORIDE 96 MMOL/L (98-107); SODIUM 133 MMOL/L (135-145)
[2020-07-05 04:29] LABS: CALCIUM 8.3 MG/DL (8.5-10.1)
[2020-07-05 04:30] LABS: GLUCOSE 175 MG/DL (70-105)
[2020-07-05 04:32] LABS: CARBON DIOXIDE 27 MMOL/L (21-32)
[2020-07-05 04:34] LABS: CREATININE SERUM 0.83 MG/DL (0.60-1.30); GFR ESTIMATED > 60; PHOSPHORUS 3.8 MG/DL (2.3-4.7)
[2020-07-05 04:35] LABS: BUN/CREATININE RATIO 33
--- NOTE | 2020-07-05 05:14 | Pulmonary Progress Note ---
Subjective Time Seen by a Provider: 05:08 Subjective/Events-last exam Pt is on Vapotherm at 40%. Sepsis Event Evaluation Height, Weight, BMI Height: 5'8.00" Weight: 190lbs. 0.6oz. 86.858562vj; 30.14 BMI Method:Stated Exam Exam Vital Signs Date Time Temp Pulse Resp B/P (MAP) Pulse Ox O2 Delivery O2 Flow Rate FiO2 07/05/20 02:04 92 Vapotherm 35.00 50 07/05/20 02:00 69 21 161/73 (100) 84 Vapotherm 25.00 40.00 07/05/20 01:00 76 36 130/56 (86) 87 Vapotherm 25.00 40.00 07/05/20 01:00 76 07/05/20 00:00 70 26 138/61 (92) 94 Vapotherm 25.00 40.00 07/04/20 23:56 25.00 40.00 07/04/20 23:00 80 27 172/69 (103) 87 Vapotherm 25.00 30.00 07/04/20 22:57 91 Vapotherm 35.00 50 07/04/20 22:00 69 20 179/67 (104) 92 Vapotherm 25.00 30.00 07/04/20 21:53 25.00 30.00 07/04/20 21:00 59 20 166/75 (105) 94 Vapotherm 25.00 30.00 07/04/20 20:45 64 13 91 Vapotherm 25.00 45.00 07/04/20 20:29 77 20 145/73 (97) 95 Vapotherm 25.00 30.00 07/04/20 20:00 94 Vapotherm 25.00 40 07/04/20 20:00 68 27 145/73 (97) 91 Vapotherm 25.00 40.00 07/04/20 19:16 91 Vapotherm 30.00 25 07/04/20 19:08 36.4 07/04/20 19:00 73 18 144/69 (94) 92 Vapotherm 25.00 40.00 07/04/20 19:00 73 07/04/20 18:02 98 25.00 30.00 07/04/20 18:00 73 20 139/65 (89) 94 Vapotherm 25.00 40.00 07/04/20 17:00 76 20 149/91 (110) 96 Vapotherm 25.00 40.00 07/04/20 16:06 36.8 74 96 50 07/04/20 16:00 71 19 148/72 (97) 92 Vapotherm 25.00 40.00 07/04/20 15:58 36.8 07/04/20 15:24 96 25.00 40.00 07/04/20 13:52 25.00 50.00 07/04/20 13:10 92 Vapotherm 30.00 50 07/04/20 12:36 74 07/04/20 12:00 93 28 135/40 (71) 94 Vapotherm 30.00 50.00 07/04/20 11:57 30.00 50.00 07/04/20 11:32 36.2 07/04/20 11:07 Vapotherm 30.00 60.00 07/04/20 10:17 95 Vapotherm 30.00 70 07/04/20 08:47 30.00 65.00 07/04/20 08:10 96 Vapotherm 30.00 65 07/04/20 08:00 64 24 141/64 (89) 95 Vapotherm 30.00 70.00 07/04/20 07:26 36.8 07/04/20 07:00 61 22 123/50 (74) 96 Vapotherm 30.00 70.00 07/04/20 06:56 96 Vapotherm 30.00 70 07/04/20 06:43 66 07/04/20 06:00 67 136/53 (81) 93 Vapotherm 30.00 70.00 I & O 07/05/20 07:00 Intake Total 1900 ml Output Total 3375 ml Balance -1475 ml Height & Weight Height: 5'8.00" Weight: 190lbs. 0.6oz. 86.226571zr; 30.14 BMI Method:Stated General Appearance: No Apparent Distress HEENT: PERRL/EOMI, Pharynx Normal Neck: Normal Inspection, Supple Respiratory: Crackles Cardiovascular: Regular Rate, Rhythm, Normal Peripheral Pulses Capillary Refill: Less Than 3 Seconds Gastrointestinal: normal bowel sounds, non tender, soft Extremity: No Calf Tenderness, No Pedal Edema Neurologic/Psychiatric: Alert, Oriented x3 Skin: Normal Color, Warm/Dry Results Lab Laboratory Tests 07/04/20 02:57 07/05/20 03:45 Assessment/Plan Assessment/Plan Acute respiratory failure secondary to COVID -Vapotherm 40% -S/p CVP and Remdesivir -Decadron -Vapotherm COPDAE -Steroids -Breathing treatments Pneumonia -CXR shows worsening -Start Zosyn CAD -Plavid Afib hx -monitor ANANYA SCHRADER DO Jul 05, 2020 05:14
[2020-07-05] MEDS ORDERED: FUROSEMIDE 40 MG/4 ML INJ (LASIX) IVP ONE (05:15)
[2020-07-05] MEDS: inSUlin ASPART (NovoLOG) 1 UNIT/0.01 ML (CHARGE PER UNIT) SC SCH ×4 (05:40→20:38)
[2020-07-05] MEDS: KCL 20 MEQ TAB (K-DUR) PO SCH (05:40)
--- NOTE | 2020-07-05 07:13 | Diagnostic Imaging Report ---
INDICATION: Pneumonia. Comparison with 07/04/2020. FINDINGS: 5 lobe infiltrate again noted more severe on the left. Overall appearance is changed very little since previous exam. Lungs are well-aerated. Heart is not enlarged. No pneumothorax or pleural effusion. IMPRESSION: Persistent bilateral 5 lobe pneumonia with little overall change in appearance. Dictated by: Dictated on workstation # [id number]
[2020-07-05] MEDS ORDERED: SENNA W/DOCUSATE (SENOKOT S) TABLET ONE (07:42)
[2020-07-05] MEDS: DOCUSATE SODIUM 100 MG (COLACE) CAP PO SCH ×2 (08:20→20:38)
[2020-07-05] MEDS: CLOPIDOGREL 75 MG (PLAVIX) TABLET PO SCH (08:21)
[2020-07-05] MEDS: APIXABAN 5 MG (ELIQUIS) TABLET PO SCH ×2 (08:21→20:38)
[2020-07-05] MEDS: doxAzosin 2 MG (CARDURA) TAB PO SCH ×2 (08:21→20:38)
[2020-07-05] MEDS: FAMOTIDINE 20 MG (PEPCID) TABLET PO SCH (08:21)
[2020-07-05] MEDS: DIGOXIN 0.25 MG (LANOXIN) TAB PO SCH (08:21)
--- NOTE | 2020-07-05 13:46 | Physical Therapy Daily Note ---
PT Daily Note-Current Subjective Patient in recliner pre tx, agrees to PT, has no complaints of pain. Appearance Patient in recliner post tx with nurse call, phone, tray, all needs met. Mental Status Patient Orientation: Person, Place, Situation Attachments: Oxygen, Tellez Catheter, IV Transfers SCALE: Activities may be completed with or without assistive devices. 0-Mbxxuftgdk-jcfrdpm completes the activity by him/herself with no assistance from a helper. 5-Set-up or Clean-up Assistance-helper sets up or cleans up; patient completes activity. [place] assists only prior to or following the activity. 4-Supervision or Touching Assistance-helper provides verbal cues and/or touching/steadying and/or contact guard assistance as patient completes activity. Assistance may be provided throughout the activity or intermittently. 3-Partial/Moderate Assistance-helper does LESS THAN HALF the effort. [place] lifts, holds or supports trunk or limbs, but provides less than half the effort. 2-Substantial/Maximal Assistance-helper does MORE THAN HALF the effort. [place] lifts or holds trunk or limbs and provides more than half the effort. 7-Cnqgxurnr-nzwjnt does ALL the effort. Patient does none of the effort to complete the activity. Or, the assistance of 2 or more helpers is required for the patient to complete the activity. If activity was not attempted, code reason: 7-Patient Refused. 9-Not Applicable-not attempted and the patient did not perform the activity before the current illness, exacerbation or injury. 10-Not Attempted due to Environmental Limitations-(lack of equipment, weather restraints, etc.). 88-Not Attempted due to Medical Conditions or Safety Concerns. Sit to Stand (QC): 4 SBA Gait Training Distance: 50', 10' Walk 10 feet (QC): 4 Walk 50 ft with 2 Turns(QC): 4 Gait Persons Needed: 1 Gait Assistive Device: FWW Patient was able to ambulate forward and back (as his vapotherm line would allow) for about 50' and his O2 at the end suddenly dropped to 84%, sat down and purse lip breathed for about 2 min before O2 got back up to 91%, ambulated again for about 10' and O2 went down to 87%. Exercises Seated Therapy Exercises: Ankle pumps, Long arc quads, Hip flexion Seated Reps: 20 Treatments ambulation, LE exercise Assessment Current Status: Poor Progress very SOB with ambulation, poor endurance PT Drink Waiter Goals Drink Waiter Goals PT Intermediate Goals Time Frame: Jul 15, 2020 Roll Left & Right (QC): 6 Sit to Lying (QC): 6 Lying-Sitting on Side/Bed(QC): 6 Sit to Stand (QC): 6 Chair/Uac-xk-Nvxic Xfer(QC): 6 Walk 10 feet (QC): 6 Walk 50ft with 2 Turns (QC): 6 PT Plan Problem List Problem List: Activity Tolerance, Functional Strength, Safety, Balance, Gait, Transfer, ROM Treatment/Plan Treatment Plan: Continue Plan of Care Treatment Plan: Education, Functional Activity Rubens, Functional Strength, Gait, Safety, Therapeutic Exercise, Transfers Treatment Duration: Jul 15, 2020 Frequency: 6 times per week Estimated Hrs Per Day: .25 hour per day Patient and/or Family Agrees t: Yes Safety Risks/Education Patient Education: Gait Training, Transfer Techniques, Correct Positioning, Safety Issues Teaching Recipient: Patient Teaching Methods: Demonstration, Discussion Response to Teaching: Reinforcement Needed Time/GCodes Time In: 1310 Time Out: 1323 Total Billed Treatment Time: 13 Total Billed Treatment 1 visit FA MARCE LENZ PT Jul 05, 2020 13:46
--- NOTE | 2020-07-05 14:22 | NUR ---
REPORT CALLED TO MATTHEW GATES. PT TO ROOM 430 SOON.
--- NOTE | 2020-07-05 14:22 | NUR ---
Report taken at this time from YAJAIRA Gutierrez. This RN will assume care of this patient when he arrives to room 430-1.
--- NOTE | 2020-07-05 14:25 | NUR ---
ATTEMPTED TO CALL GENEVA AT [phone] AND HAD TO LEAVE A MESSAGE. WILL AWAIT CALL BACK.
--- NOTE | 2020-07-05 14:55 | NUR ---
Patient to floor at this time via chair.
--- NOTE | 2020-07-05 15:15 | NUR ---
PT TRANSPORTED TO 430 IN RECLINER WITHOUT DIFFICULTIES. PATIENT ON 6L HFNC PER RT AND VAPOTHERM/BIPAP IN ROOM. ALL PERSONAL BELONGINGS WITH PATIENT AT THIS TIME.
--- NOTE | 2020-07-05 15:49 | NUR ---
SPOKE WITH PATIENTS DAUGHTER, GENEVA AND PRUDENCE AND UPDATED ON PATIENT CONDITION AND ROOM CHANGE. ALL QUESTIONS ANSWERED WITH NO FURTHER CONCERNS NOTED.
[2020-07-05] MEDS: ONDANSETRON 4 MG/2 ML (SDV) Z0FRAN IV PRN (17:22)
[2020-07-06] VITALS (7 sets, daily range): BP systolic 113–127; BP diastolic 56–62
[2020-07-06] MEDS: RT-ALBUTEROL INHALER HFA (VENTOLIN HFA) 18 GM IH SCH ×6 (01:15→21:53)
[2020-07-06] MEDS: PIPERACILLIN/TAZO 4.5 GM/NS 100 ML IV SCH ×6 (02:35→18:44)
[2020-07-06] MEDS: inSUlin ASPART (NovoLOG) 1 UNIT/0.01 ML (CHARGE PER UNIT) SC SCH ×4 (05:15→20:32)
[2020-07-06 05:57] LABS: BASOPHILS % (AUTO) 0 % (0-10); EOSINOPHILS # (AUTO) 0.1 10^3/uL (0.0-0.3); EOSINOPHILS % (AUTO) 2 % (0-10); HEMATOCRIT 38 % (40-54); HEMOGLOBIN 12.3 g/dL (13.3-17.7); LYMPHOCYTES # (AUTO) 0.7 10^3/uL (1.0-4.0); LYMPHOCYTES % (AUTO) 8 % (12-44); MEAN CORPUSCULAR HEMOGLOBIN 28 pg (25-34); MEAN CORPUSCULAR HGB CONC 33 g/dL (32-36); MEAN CORPUSCULAR VOLUME 84 fL (80-99); MEAN PLATELET VOLUME 9.9 fL (9.0-12.2); MONOCYTES # (AUTO) 0.4 10^3/uL (0.0-1.0); MONOCYTES % (AUTO) 5 % (0-12); NEUTROPHILS # (AUTO) 7.2 10^3/uL (1.8-7.8); NEUTROPHILS % (AUTO) 85 % (42-75); PLATELET COUNT 223 10^3/uL (130-400); WHITE BLOOD COUNT 8.5 10^3/uL (4.3-11.0)
[2020-07-06 06:06] LABS: CHLORIDE 95 MMOL/L (98-107); POTASSIUM 3.9 MMOL/L (3.6-5.0); SODIUM 136 MMOL/L (135-145)
[2020-07-06 06:08] LABS: CALCIUM 8.4 MG/DL (8.5-10.1); GLUCOSE 128 MG/DL (70-105)
[2020-07-06 06:10] LABS: CARBON DIOXIDE 31 MMOL/L (21-32)
[2020-07-06 06:12] LABS: CREATININE SERUM 0.82 MG/DL (0.60-1.30); GFR ESTIMATED > 60
[2020-07-06 06:13] LABS: BUN/CREATININE RATIO 30
[2020-07-06] MEDS: KCL 20 MEQ TAB (K-DUR) PO SCH (06:29)
[2020-07-06] MEDS: FAMOTIDINE 20 MG (PEPCID) TABLET PO SCH (08:05)
[2020-07-06] MEDS: APIXABAN 5 MG (ELIQUIS) TABLET PO SCH ×2 (08:05→21:05)
[2020-07-06] MEDS: DOCUSATE SODIUM 100 MG (COLACE) CAP PO SCH ×2 (08:05→21:05)
[2020-07-06] MEDS: doxAzosin 2 MG (CARDURA) TAB PO SCH ×2 (08:05→21:05)
[2020-07-06] MEDS: CLOPIDOGREL 75 MG (PLAVIX) TABLET PO SCH (08:05)
[2020-07-06] MEDS: DIGOXIN 0.25 MG (LANOXIN) TAB PO SCH (08:07)
--- NOTE | 2020-07-06 13:19 | Physical Therapy Daily Note ---
PT Daily Note-Current Subjective Patient agrees to PT. Mental Status Patient Orientation: Normal For Age Attachments: Oxygen (vapotherm 30/75%), Tellez Catheter Transfers SCALE: Activities may be completed with or without assistive devices. 2-Igmcfcmxtw-bzizgce completes the activity by him/herself with no assistance from a helper. 5-Set-up or Clean-up Assistance-helper sets up or cleans up; patient completes activity. [place] assists only prior to or following the activity. 4-Supervision or Touching Assistance-helper provides verbal cues and/or touching/steadying and/or contact guard assistance as patient completes activity. Assistance may be provided throughout the activity or intermittently. 3-Partial/Moderate Assistance-helper does LESS THAN HALF the effort. [place] lifts, holds or supports trunk or limbs, but provides less than half the effort. 2-Substantial/Maximal Assistance-helper does MORE THAN HALF the effort. [place] lifts or holds trunk or limbs and provides more than half the effort. 4-Otgyzvbvi-oqqvuq does ALL the effort. Patient does none of the effort to complete the activity. Or, the assistance of 2 or more helpers is required for the patient to complete the activity. If activity was not attempted, code reason: 7-Patient Refused. 9-Not Applicable-not attempted and the patient did not perform the activity before the current illness, exacerbation or injury. 10-Not Attempted due to Environmental Limitations-(lack of equipment, weather restraints, etc.). 88-Not Attempted due to Medical Conditions or Safety Concerns. Lying to Sitting/Side of Bed(Q: 6 Sit to Stand (QC): 5 Chair/Bvi-xt-Jrszp Xfer(QC): 5 Gait Training Distance: 10' Walk 10 feet (QC): 5 Gait Assistive Device: FWW Exercises Standing: Marching, Mini squats Standing Reps: 15 (3 sets with SAO2 remaining >90%) Assessment Patient tolerated treatment well and required 3 sitting recovery periods due to SOA. SAO2 remains >90% on vapotherm with activity. PT Guard Captain Goals Guard Captain Goals PT Senior Living Goals Time Frame: Jul 15, 2020 Roll Left & Right (QC): 6 Sit to Lying (QC): 6 Lying-Sitting on Side/Bed(QC): 6 Sit to Stand (QC): 6 Chair/Awe-gr-Qmfhb Xfer(QC): 6 Walk 10 feet (QC): 6 Walk 50ft with 2 Turns (QC): 6 PT Plan Treatment/Plan Treatment Plan: Continue Plan of Care Treatment Plan: Education, Functional Activity Rubens, Functional Strength, Gait, Safety, Therapeutic Exercise, Transfers Treatment Duration: Jul 15, 2020 Frequency: 6 times per week Estimated Hrs Per Day: .25 hour per day Patient and/or Family Agrees t: Yes Time/GCodes Time In: 1102 Time Out: 1114 Total Billed Treatment Time: 12 Total Billed Treatment 1 visit EX 12 min CHARLIE SONI PT Jul 06, 2020 13:19
--- NOTE | 2020-07-06 15:28 | Progress Note - Hospitalist ---
Subjective HPI/CC On Admission Date Seen by Provider: Jul 06, 2020 Time Seen by Provider: 11:05 Subjective/Events-last exam He is feeling ok today. He denies feeling short of breath. He is not having a cough. He is not having fevers. He is feeling weak. Objective Exam Vital Signs Vital Signs Date Time Temp Pulse Resp B/P (MAP) Pulse Ox O2 Delivery O2 Flow Rate FiO2 07/06/20 15:10 96 Vapotherm 30.00 50 07/06/20 13:15 106 07/06/20 12:00 35.9 20 127/60 (82) Capillary Refill : Less Than 3 Seconds General Appearance: No Apparent Distress, WD/WN Respiratory: Lungs Clear, Normal Breath Sounds, No Respiratory Distress Cardiovascular: Regular Rate, Rhythm, No Edema, No Murmur Gastrointestinal: Normal Bowel Sounds, Non Tender, Soft Extremity: Normal Inspection, Non Tender, No Pedal Edema Neurologic/Psychiatric: Alert, Oriented x3, No Motor/Sensory Deficits, Normal Mood/Affect Skin: Normal Color, Warm/Dry Results/Procedures Lab Laboratory Tests 07/06/20 05:47 Patient resulted labs reviewed. Imaging: Reviewed Imaging Report Assessment/Plan Assessment and Plan Assess & Plan/Chief Complaint Acute respiratory failure due to COVID-19 COPD with acute exacerbation Pneumonia s/p decadron s/p remdesivir s/p convalescent plasma 1 Continue Zosyn Continue Vapotherm, wean as able MAT protocol CAD Continue Plavix AFib Continue Diltiazem, Digoxin, and Eliquis HTN BPH Continue Doxazosin DVT prophylaxis: already receiving therapeutic anticoagulation Diagnosis/Problems Diagnosis/Problems (1) Acute respiratory failure due to COVID-19 Status: Acute (2) COPD with acute lower respiratory infection Status: Acute (3) PNA (pneumonia) Status: Acute (4) CAD (coronary artery disease) Status: Chronic (5) A-fib Status: Chronic (6) BPH (benign prostatic hyperplasia) Status: Chronic Clinical Quality Measures DVT/VTE Risk/Contraindication: Risk Factor Score Per Nursin RFS Level Per Nursing on Admit: 3=High EFREN ESTRADA MD Jul 06, 2020 15:28
[2020-07-06] MEDS: ACETAMINOPHEN 500 MG TAB (TYLENOL) PO PRN (18:44)
[2020-07-06] MEDS: polyethylene glycoL POWDER 17 GM (MIRALAX) PACK PO SCH (21:05)
--- NOTE | 2020-07-06 22:38 | NUR ---
SPOKE WITH PATIENTS DAUGHTER, GENEVA AND UPDATED ON PATIENT CONDITION. ALL QUESTIONS ANSWERED WITH NO FURTHER CONCERNS NOTED.
[2020-07-07 00:20] VITALS: BP 124/61
[2020-07-07] MEDS: ACETAMINOPHEN 500 MG TAB (TYLENOL) PO PRN (00:20)
[2020-07-07] MEDS: RT-ALBUTEROL INHALER HFA (VENTOLIN HFA) 18 GM IH SCH ×3 (01:42→11:24)
--- NOTE | 2020-07-07 02:05 | NUR ---
PT GIVEN 1G TYLENOL FOR C/O LOZA. PT STATES HIS HEADACHE CONTINUES TO BE 10/10 AND IS REQUESTING DIFFERENT MEDICATION. DR. GARCÍA CALLED AND INFORMED OF PT REQUEST. ORDER FOR HYDROCODONE 5/325MG Q4HR PRN PAIN.
[2020-07-07] MEDS ORDERED: HYDROcodone/APAP 5 MG/325 MG (LORTAB) TAB PO PRN (02:15)
[2020-07-07] MEDS: PIPERACILLIN/TAZO 4.5 GM/NS 100 ML IV SCH ×4 (02:17→12:09)
[2020-07-07 04:00] VITALS: BP 142/66
[2020-07-07] MEDS: inSUlin ASPART (NovoLOG) 1 UNIT/0.01 ML (CHARGE PER UNIT) SC SCH ×2 (05:20→12:09)
[2020-07-07 06:38] LABS: BASOPHILS % (AUTO) 0 % (0-10); EOSINOPHILS # (AUTO) 0.1 10^3/uL (0.0-0.3); EOSINOPHILS % (AUTO) 2 % (0-10); HEMATOCRIT 35 % (40-54); HEMOGLOBIN 11.2 g/dL (13.3-17.7); LYMPHOCYTES # (AUTO) 0.6 10^3/uL (1.0-4.0); LYMPHOCYTES % (AUTO) 7 % (12-44); MEAN CORPUSCULAR HEMOGLOBIN 27 pg (25-34); MEAN CORPUSCULAR HGB CONC 32 g/dL (32-36); MEAN CORPUSCULAR VOLUME 85 fL (80-99); MEAN PLATELET VOLUME 10.1 fL (9.0-12.2); MONOCYTES # (AUTO) 0.4 10^3/uL (0.0-1.0); MONOCYTES % (AUTO) 5 % (0-12); NEUTROPHILS # (AUTO) 6.7 10^3/uL (1.8-7.8); NEUTROPHILS % (AUTO) 85 % (42-75); PLATELET COUNT 232 10^3/uL (130-400); WHITE BLOOD COUNT 7.9 10^3/uL (4.3-11.0)
[2020-07-07 06:53] LABS: CHLORIDE 96 MMOL/L (98-107); POTASSIUM 3.7 MMOL/L (3.6-5.0); SODIUM 136 MMOL/L (135-145)
[2020-07-07 06:54] LABS: CALCIUM 8.2 MG/DL (8.5-10.1)
[2020-07-07] MEDS: KCL 20 MEQ TAB (K-DUR) PO SCH (06:54)
[2020-07-07 06:55] LABS: GLUCOSE 127 MG/DL (70-105)
[2020-07-07 06:56] LABS: CARBON DIOXIDE 29 MMOL/L (21-32)
[2020-07-07 06:58] LABS: PHOSPHORUS 3.4 MG/DL (2.3-4.7)
[2020-07-07 06:59] LABS: BUN/CREATININE RATIO 28; CREATININE SERUM 0.76 MG/DL (0.60-1.30); GFR ESTIMATED > 60
[2020-07-07 07:01] LABS: MAGNESIUM 2.1 MG/DL (1.6-2.4)
[2020-07-07 08:00] VITALS: BP 131/62
[2020-07-07] MEDS: CLOPIDOGREL 75 MG (PLAVIX) TABLET PO SCH (08:54)
[2020-07-07] MEDS: APIXABAN 5 MG (ELIQUIS) TABLET PO SCH (08:54)
[2020-07-07] MEDS: polyethylene glycoL POWDER 17 GM (MIRALAX) PACK PO SCH (08:54)
[2020-07-07] MEDS: FAMOTIDINE 20 MG (PEPCID) TABLET PO SCH (08:54)
[2020-07-07] MEDS: DOCUSATE SODIUM 100 MG (COLACE) CAP PO SCH (08:54)
[2020-07-07] MEDS: DIGOXIN 0.25 MG (LANOXIN) TAB PO SCH (08:54)
[2020-07-07] MEDS: doxAzosin 2 MG (CARDURA) TAB PO SCH (08:54)
--- NOTE | 2020-07-07 11:19 | Physical Therapy Daily Note ---
PT Daily Note-Current Subjective Patient is in bed and agrees to PT. Currently on Vapotherm. Mental Status Patient Orientation: Person, Time, Situation Attachments: Oxygen (vapotherm), Tellez Catheter Transfers SCALE: Activities may be completed with or without assistive devices. 2-Dftlhgybig-vvgpjdf completes the activity by him/herself with no assistance from a helper. 5-Set-up or Clean-up Assistance-helper sets up or cleans up; patient completes activity. [place] assists only prior to or following the activity. 4-Supervision or Touching Assistance-helper provides verbal cues and/or touching/steadying and/or contact guard assistance as patient completes activity. Assistance may be provided throughout the activity or intermittently. 3-Partial/Moderate Assistance-helper does LESS THAN HALF the effort. [place] lifts, holds or supports trunk or limbs, but provides less than half the effort. 2-Substantial/Maximal Assistance-helper does MORE THAN HALF the effort. [place] lifts or holds trunk or limbs and provides more than half the effort. 8-Uuxztynue-cyqqlv does ALL the effort. Patient does none of the effort to complete the activity. Or, the assistance of 2 or more helpers is required for the patient to complete the activity. If activity was not attempted, code reason: 7-Patient Refused. 9-Not Applicable-not attempted and the patient did not perform the activity before the current illness, exacerbation or injury. 10-Not Attempted due to Environmental Limitations-(lack of equipment, weather restraints, etc.). 88-Not Attempted due to Medical Conditions or Safety Concerns. Lying to Sitting/Side of Bed(Q: 5 Sit to Stand (QC): 3 Chair/Pcc-ns-Qwcyp Xfer(QC): 3 patient transferred to [facility] for BM Gait Training Does the Patient Walk?: No and Walking Goal IS indicated Distance: 10' x 2 Walk 10 feet (QC): 3 Gait Assistive Device: FWW slightly unsteady Exercises Seated Therapy Exercises: Ankle pumps, Long arc quads Seated Reps: 15 Assessment Patient's SAO2 remained 86% on vapotherm with all activity. Patient does c/o SOA. RN notified. PT Senior Living Goals Senior Living Goals PT Senior Living Goals Time Frame: Jul 15, 2020 Roll Left & Right (QC): 6 Sit to Lying (QC): 6 Lying-Sitting on Side/Bed(QC): 6 Sit to Stand (QC): 6 Chair/Ifr-mr-Pljnl Xfer(QC): 6 Walk 10 feet (QC): 6 Walk 50ft with 2 Turns (QC): 6 PT Plan Treatment/Plan Treatment Plan: Continue Plan of Care Treatment Plan: Education, Functional Activity Rubens, Functional Strength, Gait, Safety, Therapeutic Exercise, Transfers Treatment Duration: Jul 15, 2020 Frequency: 6 times per week Estimated Hrs Per Day: .25 hour per day Patient and/or Family Agrees t: Yes Time/GCodes Time In: 1031 Time Out: 1045 Total Billed Treatment Time: 14 Total Billed Treatment 1 visit FA 14 min CHARLIE SONI PT Jul 07, 2020 11:19
[2020-07-07 12:00] VITALS: BP 133/60
--- NOTE | 2020-07-07 16:02 | Discharge Summary ---
Discharge Summary Hospital Course Was the Problem List Reviewed?: Yes Problems/Dx: (1) Acute respiratory failure due to COVID-19 Status: Acute (2) COPD with acute lower respiratory infection Status: Acute (3) PNA (pneumonia) Status: Acute (4) CAD (coronary artery disease) Status: Chronic (5) A-fib Status: Chronic (6) BPH (benign prostatic hyperplasia) Status: Chronic Qualifiers: Hospital Course Date of Admission: Jun 22, 2020 at 14:32 Admission Diagnosis: Acute respiratory failure due to COVID-19 Family Physician/Provider: Magdalena,Local Physician Date of Discharge: 07/07/20 Discharge Diagnosis: Acute respiratory failure due to COVID-19 Hospital Course: Jaspreet Knutson is an 85-year-old male with past medical history of hypertension, COPD, CAD, atrial fibrillation on Eliquis, BPH, who presented with shortness of breath and was admitted with acute respiratory failure due to COVID-19. He was treated with Decadron, Remdesivir, and convalescent plasma. He was requiring significant amounts of oxygen with Vapotherm and was transferred to the intensive care unit. His course was complicated by bacterial pneumonia for which she received a course of IV cefepime. He later developed worsening infiltrates on chest x-ray and procalcitonin remained elevated, so he was started on Zosyn. Due to his waxing and waning course with significant oxygen needs, he is being transitioned to swing bed for oxygen weaning and ongoing therapies. Labs and Pending Lab Test: Laboratory Tests 07/06/20 20:27: Glucometer 178H 07/07/20 05:07: Glucometer 129H 07/07/20 05:57: White Blood Count 7.9, Red Blood Count 4.12L, Hemoglobin 11.2L, Hematocrit 35L, Mean Corpuscular Volume 85, Mean Corpuscular Hemoglobin 27, Mean Corpuscular Hemoglobin Concent 32, Red Cell Distribution Width 13.7, Platelet Count 232, Mean Platelet Volume 10.1, Immature Granulocyte % (Auto) 1, Neutrophils (%) (Auto) 85H, Lymphocytes (%) (Auto) 7L, Monocytes (%) (Auto) 5, Eosinophils (%) (Auto) 2, Basophils (%) (Auto) 0, Neutrophils # (Auto) 6.7, Lymphocytes # (Auto) 0.6L, Monocytes # (Auto) 0.4, Eosinophils # (Auto) 0.1, Basophils # (Auto) 0.0, Immature Granulocyte # (Auto) 0.1, Sodium Level 136, Potassium Level 3.7, Chloride Level 96L, Carbon Dioxide Level 29, Anion Gap 11, Blood Urea Nitrogen 21H, Creatinine 0.76, Estimat Glomerular Filtration Rate > 60, BUN/Creatinine Ratio 28, Glucose Level 127H, Calcium Level 8.2L, Phosphorus Level 3.4, Magnesium Level 2.1 07/07/20 10:49: Glucometer 175H Microbiology 07/04/20 MRSA Screen - Final, Complete MRSA not isolated 07/03/20 Urine Culture - Final, Complete NO GROWTH 06/22/20 Blood Culture - Final, Complete No growth Home Meds Active Reported Ocuvite with Lutein Tablet (Vit A,C & E/Lutein/Minerals) 1 Each Tablet 1 Each PO DAILY Co Q-10 (Ubidecarenone) 10 Mg Capsule 10 Mg PO DAILY Metformin HCl 500 Mg Tablet 500 Mg PO DAILY PRN Gabapentin 100 Mg Capsule 100-200 Mg PO Q8H PRN Doxazosin Mesylate 4 Mg Tablet 2 Mg PO BID TAKES OF A 4MG TAB Docusate Sodium 100 Mg Tablet 100 Mg PO BID Tiazac (Diltiazem HCl) 240 Mg Capsule.er 240 Mg PO DAILY Digoxin 250 Mcg Tablet 250 Mcg PO DAILY Eliquis (Apixaban) 5 Mg Tablet 5 Mg PO BID Ventolin Hfa (Albuterol Sulfate) 1 Puff Puff 2 Puff INH QID PRN Clopidogrel (Clopidogrel Bisulfate) 75 Mg Tablet 75 Mg PO DAILY Assessment/Pt Instructions Patient transferred to swing bed Discharge Planning: <30 minutes discharge planning Discharge Instructions Discharge Diet: ADA Diet, Cardiac Diet Activity as Tolerated: Yes Discharge Physical Examination Vital Signs Vital Signs Date Time Temp Pulse Resp B/P (MAP) Pulse Ox O2 Delivery O2 Flow Rate FiO2 07/07/20 12:48 103 07/07/20 12:00 36.8 20 133/60 (84) 97 High Flow N/C 3.00 07/07/20 08:00 40 General Appearance: No Apparent Distress, WD/WN Respiratory: No Respiratory Distress, Decreased Breath Sounds, Other (wearing Vapotherm) Cardiovascular: Regular Rate, Rhythm, No Edema, No Murmur Gastrointestinal: Normal Bowel Sounds, Non Tender, Soft Extremity: Normal Inspection, Non Tender, No Pedal Edema Skin: Normal Color, Warm/Dry Neurologic/Psychiatric: Alert, Oriented x3, Normal Mood/Affect, Motor Weakness Allergies: Coded Allergies: Iodine and Iodide Containing Produc (Verified Allergy, Unknown, 06/22/20) itching and swelling Discharge Summary Date of Admission Jun 22, 2020 at 14:32 Date of Discharge Jul 07, 2020 at 13:20 Discharge Date: Jun 29, 2020 Discharge Time: 13:20 Admission Diagnosis acute respiratory failure due to COVID-19 Discharge Diagnosis Acute respiratory failure due to COVID-19 (1) Acute respiratory failure due to COVID-19 Status: Acute (2) COPD with acute lower respiratory infection Status: Acute (3) PNA (pneumonia) Status: Acute (4) CAD (coronary artery disease) Status: Chronic (5) A-fib Status: Chronic (6) BPH (benign prostatic hyperplasia) Status: Chronic Qualifiers: Clinical Quality Measures DVT/VTE Risk/Contraindication: Risk Factor Score Per Nursin RFS Level Per Nursing on Admit: 3=High EFREN ESTRADA MD Jul 07, 2020 16:02
== END 2020-07-07 13:20 | disposition swing bed (61) | DRG 177 ==
LOC: EDUNIT# 11:26 → ER 11:28 → 4TH 14:32 → EDLOC 14:32 → 4TH 06-24 10:30 → ICU 07-01 11:31 → 4TH 07-05 15:05
PROVIDERS: ADMIT Internal Medicine; ATTEND Internal Medicine
PROC: XW033E5 Introduction of Remdesivir Anti-infective into Peripheral Vein, Percutaneous Approach, New Technology Group 5 (ICD-10-PCS; principal; 2020-06-24)
PROC: XW13325 Transfusion of Convalescent Plasma (Nonautologous) into Peripheral Vein, Percutaneous Approach, New Technology Group 5 (ICD-10-PCS; 2020-06-24)
DX: U07.1 COVID-19 (principal); J96.01 Acute respiratory failure with hypoxia; J12.82 Pneumonia due to coronavirus disease 2019; J44.0 Chronic obstructive pulmonary disease with (acute) lower respiratory infection; J44.1 Chronic obstructive pulmonary disease with (acute) exacerbation; R04.2 Hemoptysis; I25.10 Atherosclerotic heart disease of native coronary artery without angina pectoris; I48.91 Unspecified atrial fibrillation; I10 Essential (primary) hypertension; N40.0 Benign prostatic hyperplasia without lower urinary tract symptoms; E78.00 Pure hypercholesterolemia, unspecified; E11.9 Type 2 diabetes mellitus without complications; Z79.01 Long term (current) use of anticoagulants; Z95.5 Presence of coronary angioplasty implant and graft; I25.2 Old myocardial infarction
CPT/HCPCS: 36415; 71045; 71250; 80048; 80053; 81000; 82962; 83605; 83615; 83735; 83880; 84100; 84145; 85007; 85025; 85027; 85379; 85610; 85730; 86141; 86900; 86901; 87040; 87081; 87088; 87635; 87804; 93970; 94640; 94760; 96374; 96375

== ENCOUNTER 2020-07-07 10:45 | Inpatient (IN) | payer MEDICARE ==
[~2020-07-07] VITALS: Ht 172.7 cm; Wt 81.6 kg
[~2020-07-07 10:45] MED LIST changes: +APIX5TAB PO; +DIGO250T3 PO; +DILT-10 PO; +DOCU100T2 PO; +DOXA4TAB2 PO; +GABA-486 PO; +METF-397 PO; +RT-ALBUINH INH; +UBID10CA5 PO; +VIT1TABL26 PO
--- NOTE | 2020-07-07 11:07 | NUR ---
Swing Bed Note: Qualifies for swing bed for continued need for Physical and Occupational therapy (Weakness, COVID 19) while continuing to monitor and wean oxygen for acceptable home level use. Spoke with the patient's and then his daughter Marcela called back. Daughter Marcela voiced concerns about him being moved out of a negative pressure room and wants him to continue on his required Vapo therm. Encouraged her that he will stay in the same room and that while his level is close to being able to change to a nasal cannula he will remain on the Vapo therm as long as it is indicated by his doctor. She also voiced concerns about him not being seen daily. I let her know that while on swing bed he is not required to be seen daily by his physician but can be seen daily if doctor feels that it is necessary. Encouraged her that he will still be receiving his same cares by our staff that have been caring for him. They are agreeable to access swing bed but Marcela wants the doctor to call her. Updated at this time.
[2020-07-07] MEDS ORDERED: CATHETER FLUSH 10 ML SYR IV PRN (13:45)
[2020-07-07] MEDS ORDERED: PIPERACILLIN/TAZOBACTAM (BULK) 4.5 GM in NS (IVPB) 100 ML IV SCH (13:45)
[2020-07-07] MEDS ORDERED: ACETAMINOPHEN 500 MG TAB (TYLENOL) PO PRN (13:45)
[2020-07-07] MEDS ORDERED: RT-ALBUTEROL INHALER HFA (VENTOLIN HFA) 18 GM IH PRN (13:45)
[2020-07-07] MEDS ORDERED: ONDANSETRON 4 MG/2 ML (SDV) Z0FRAN IV PRN (13:45)
--- NOTE | 2020-07-07 14:31 | NUR ---
Swing Bed Note: Admission Drug Regimen Review Completed: Date: 07/07/20 Time: 1431 Physician Notified: EFREN ESTRADA MD Date: 07/07/20 Time: 1431 Issue Identified; Action Plan to Resolve and Any Action Taken: Albuterol Inhaler 4 puffs IN RTQ4hr scheduled did not carry across d/t [employer] identifying it as a duplicate medication. Dr. Estrada contacted and he wants this medication continued. Corrected on the swing bed account.
--- NOTE | 2020-07-07 15:03 | Physical Therapy Evaluation ---
PT Evaluation-General Medical Diagnosis Admission Date Jul 07, 2020 at 13:48 Medical Diagnosis: acute respiratory failure due to covid 19 Onset Date: Jun 22, 2020 Therapy Diagnosis Therapy Diagnosis: impaired mobility, endurance Height/Weight Height (Feet): 5 Height (Inches): 8.00 Weight (Pounds): 190 Weight (Ounces): 0.6 Referral Physician: Torrey Reason for Referral: Evaluation/Treatment Medical History Pertinent Medical History: CAD, COPD, DM, HTN Additional Medical History Past Medical History Surgeries: Coronary Stent, Gallbladder, Orthopedic, Vasectomy Respiratory: COPD, Pulmonary Fibrosis, Sleep Apnea Cardiac: Coronary Artery Disease, Heart Attack, High Cholesterol, Hypertension Reproductive: No Sexually Transmitted Disease: No HIV/AIDS: No Genitourinary: Benign Prostatic Hyperpl, Bladder Infection, Renal Failure Gastrointestinal: Chronic Constipation Endocrine: Diabetes, Non-Insulin dep Loss of Vision: Bilateral Hearing Impairment: Denies History of Blood Disorders: Yes (MILD ANEMIA) Reviewed History: Yes Social History Home: Single Level Current Living Status: Spouse Entry Into Home: Stairs Without Railing PT Steps Into Home: 1 Prior Prior Level of Function SCALE: Activities may be completed with or without assistive devices. 6-Embrkjvrgw-iwvxilq completes the activity by him/herself with no assistance from a helper. 5-Set-up or Clean-up Assistance-helper sets up or cleans up; patient completes activity. [place] assists only prior to or following the activity. 4-Supervision or Touching Assistance-helper provides verbal cues and/or touching/steadying and/or contact guard assistance as patient completes activity. Assistance may be provided throughout the activity or intermittently. 3-Partial/Moderate Assistance-helper does LESS THAN HALF the effort. [place] lifts, holds or supports trunk or limbs, but provides less than half the effort. 2-Substantial/Maximal Assistance-helper does MORE THAN HALF the effort. [place] lifts or holds trunk or limbs and provides more than half the effort. 0-Pwmbvgakv-cjgnry does ALL the effort. Patient does none of the effort to complete the activity. Or, the assistance of 2 or more helpers is required for the patient to complete the activity. If activity was not attempted, code reason: 7-Patient Refused. 9-Not Applicable-not attempted and the patient did not perform the activity before the current illness, exacerbation or injury. 10-Not Attempted due to Environmental Limitations-(lack of equipment, weather restraints, etc.). 88-Not Attempted due to Medical Conditions or Safety Concerns. Bed Mobility: 6 Transfers (B,C,W/C): 6 Gait: 6 Stairs: 6 Indoor Mobility (Ambulation): Independent Stairs: Independent PT Evaluation-Current Subjective Patient in recliner pre tx, agrees to PT, has no complaints of pain. Will be co-treating with OT after evaluation due to poor patient endurance decreasing O2 with activity Pt/Family Goals "to breathe better" Objective Patient Orientation: Person, Place, Situation Attachments: Oxygen, Tellez Catheter, IV ROM/Strength ROM Lower Extremities WNL Strength Lower Extremities 5/5 gross BLE Sensory Hearing: Functional Sensation Right Lower Extremit: Intact Sensation Left Lower Extremity: Intact Sensation Lower Extremities Patient states he has neuropathy and has slight numbness in both feet but also had intact light touch sensation. Transfers Roll Left & Right (QC): 9 Sit to Lying (QC): 9 Lying to Sitting/Side of Bed(Q: 9 Sit to Stand (QC): 4 Chair/Wpd-yw-Egjlk Xfer(QC): 4 Toilet Transfer (QC): 9 Car Transfer (QC): 9 SBA. After ambulation patient bathed and dressed and performed ADL's, with OT, PT assisted with patient standing and safety for positioning. Patient's O2 went down into the 80's a couple of times, took a few minutes to recover with purse lip breathing and get back to 90%. Gait Does the Patient Walk?: Yes Mode of Locomotion: Walk Anticipated Mode of Locomotion: Walk Walk 10 feet (QC): 4 Walk 50 ft with 2 Turns(QC): 4 Walk 150 ft (QC): 88 Walking 10ft/uneven surface-QC: 88 Distance: 50' Gait Assistive Device: FWW Comments/Gait Description SBA, steady ambulation Wheelchair Training Wheel 50 ft with 2 turns (QC): 9 Wheel 150 ft (QC): 9 Stairs 1 Step (curb) (QC): 88 4 Steps (QC): 88 12 Steps (QC): 88 Balance Sitting Static: Normal Sitting Dynamic: Normal Standing Static: Normal Standing Dynamic: Normal Picking up an Object (QC): 9 Assessment/Needs Patient has impaired mobility, endurance. He gets SOB with activity and O2 goes into the 80's. Patient in recliner post tx with nurse call, phone, tray, all needs met. Rehab Potential: Fair PT Group Home Goals Group Home Goals PT Group Home Goals Time Frame: Jul 14, 2020 Roll Left & Right (QC): 6 Sit to Lying (QC): 6 Lying-Sitting on Side/Bed(QC): 6 Sit to Stand (QC): 6 Chair/Rmr-fx-Mxwsh Xfer(QC): 6 Toilet Transfer (QC): 6 Car Transfer (QC): 9 Does the Patient Walk: Yes Walk 10 feet (QC): 6 Walk 50ft with 2 Turns (QC): 6 Walk 150 ft (QC): 6 Walking 10ft on Uneven Surface: 9 1 Step (curb) (QC): 6 4 Steps (QC): 6 12 Steps (QC): 88 Picking up an Object (QC): 9 Wheel 50 feet with 2 turns (QC: 9 Wheel 150 feet: 9 PT Plan Problem List Problem List: Activity Tolerance, Functional Strength, Safety, Balance, Gait, Transfer, Bed Mobility Treatment/Plan Treatment Plan: Continue Plan of Care Treatment Plan: Bed Mobility, Education, Functional Activity Rubens, Functional Strength, Gait, Safety, Therapeutic Exercise, Transfers Treatment Duration: Jul 14, 2020 Frequency: 6 times per week Estimated Hrs Per Day: .25 hour per day Patient and/or Family Agrees t: Yes Safety Risks/Education Patient Education: Gait Training, Transfer Techniques, Correct Positioning, Safety Issues Teaching Recipient: Patient Teaching Methods: Demonstration, Discussion Response to Teaching: Reinforcement Needed Discharge Recommendations Plan Patient will perform bed mobility and transfer training, balance and endurance training, functional strengthening, stair training, gait training, and education, to improve functional mobility and independence at home. Therapy Discharge Recommendati: Homemaker Support, Home & Family Time/GCodes Time In: 1405 Time Out: 1440 Total Billed Treatment Time: 25 Total Billed Treatment 1 visit EVL 10' FA 15' PT eval from [id number], OT eval from [id number], co-treat from [id number] MARCE DUDLEY PT Jul 07, 2020 15:03
--- NOTE | 2020-07-07 15:11 | Occupational Therapy Eval ---
OT Evaluation-General/PLF Medical Diagnosis Admission Date Jul 07, 2020 at 13:48 Medical Diagnosis: Acutre Respiratory Failure due to COVID-19 Onset Date: Jun 22, 2020 Therapy Diagnosis Therapy Diagnosis: decreased ADL status, decreased activity tolerance Height/Weight Height (Feet): 5 Height (Inches): 8.00 Weight (Pounds): 190 Weight (Ounces): 0.6 Precautions Precautions/Isolations: Airborne Isolation Referral Physician: Torrey Referral Reason: Evaluation/Treatment Medical History Pertinent Medical History: CAD, COPD, DM, HTN Additional Medical History pulmonary fibrosis, sleep apnea, heart attack Current History admitted to acute floor with acute respiratory failure due to COVID-19. Pt transferred to [facility] on 07/07/2020 Social History Home: Single Level Current Living Status: Spouse Entry Into Home: Stairs With Railing Steps Into Home: 1 ADL-Prior Level of Function SCALE: Activities may be completed with or without assistive devices. 4-Nucyvpijpi-ankzovh completes the activity by him/herself with no assistance from a helper. 5-Set-up or Clean-up Assistance-helper sets up or cleans up; patient completes activity. [place] assists only prior to or following the activity. 4-Supervision or Touching Assistance-helper provides verbal cues and/or touchin g/steadying and/or contact guard assistance as patient completes activity. Assistance may be provided throughout the activity or intermittently. 3-Partial/Moderate Assistance-helper does LESS THAN HALF the effort. [place] lifts, holds or supports trunk or limbs, but provides less than half the effort. 2-Substantial/Maximal Assistance-helper does MORE THAN HALF the effort. [place] lifts or holds trunk or limbs and provides more than half the effort. 7-Vhklsotyv-oozafu does ALL the effort. Patient does none of the effort to complete the activity. Or, the assistance of 2 or more helpers is required for the patient to complete the activity. If activity was not attempted, code reason: 7-Patient Refused. 9-Not Applicable-not attempted and the patient did not perform the activity before the current illness, exacerbation or injury. 10-Not Attempted due to Environmental Limitations-(lack of equipment, weather restraints, etc.). 88-Not Attempted due to Medical Conditions or Safety Concerns. ADL PLOF Comments Pt reports independent with all ADLS and functional mobility at PLOF, Self Care: Independent Functional Cognition: Independent DME/Equipment: Bath Chair, Tub/Shower OT Current Status Subjective Pt seated in recliner, agreeable to OT evaluation/tx. Mental Status/Objective Patient Orientation: Person, Place, Time, Situation Attachments: Tellez Catheter, IV, Oxygen, Telemetry Current Dentures/Partials: Yes Upper Extremity ROM WFL, BUE shoulder flexion to approx 150 degrees, able to touch the back of his head with his hands. Upper Extremity Coordination WFL Upper Extremity Sensation WFL, pt denies tingling/numbness Upper Extremity Strength grossly 4/5 ADL-Treatment Eating (QC): 6 (Per pt report) Oral Hygiene (QC): 3 (Min A to rinse dentures. Pt able to remove dentures and scrub with toothbrush) Shower/Bathe Self (QC): 4 (CGA in stand to wash buttocks. Pt washed/dried all other parts seated.) Upper Body Dressing (QC): 88 Lower Body Dressing (QC): 4 (OT threaded catheter, pt then able to thread BLEs into pants, CGA in stand for pant hike) On/Off Footwear (QC): 4 (SBA, pt able to doff/don gripper socks.) Toileting Hygiene (QC): 4 (CGA in stand, pt able to manage clothing and perform hygiene.) Other Treatments OT evaluation complete. OT/PT cotreat due to skill of 2 clinicians required which a rehab therapist could not perform in order to coordinate UE/LEs and due to pt's limitations in functional mobility, activity tolerance, strength, and standing balance. OT focused on ADLS, UE placement, cues for sequencing and safety while PT focused on LE placement, gross overall movements, and standing balance. Pt transferred sit to stand, then used FWW to perform functional mobility around room as far as O2 tubing would allow, assistance with managing O2 tubing and IV pole, pt then returned to recliner. Pt completed oral care, sponge bath and dressing taking rest breaks as needed. During tx, pt's O2 dropped into the 90%'s a couple of times, taking a few minutes to recover back to 90%'s with pursed lip breathing. Post tx, pt seated in recliner, call light in reach and all needs met. Education OT Patient Education: Correct positioning, Modified ADL techniques, Progress toward Goal/Update tx plan, Purpose of tx/functional activities, Rehab process Teaching Recipient: Patient Teaching Methods: Discussion Response to Teaching: Verbalize Understanding OT Medical Logistics Specialist Goals Medical Logistics Specialist Goals Time Frame: Jul 21, 2020 Eating (QC): 6 Oral Hygiene (QC): 6 Toileting Hygiene (QC): 6 Shower/Bathe Self (QC): 6 Upper Body Dressing (QC): 6 Lower Body Dressing (QC): 6 On/Off Footwear (QC): 6 Additional Goals: 1-Demonstrate ADL Tasks, 2-Verbalize Understanding, 3- ImproveStrength/Rubens 1=Demonstrate adherence to instructed precautions during ADL tasks. 2=Patient will verbalize/demonstrate understanding of assistive devices/modifications for ADL. 3=Patient will improve strength/tolerance for activity to enable patient to perform ADL's. OT Education/Plan Problem List/Assessment Assessment: Decreased Activ Tolerance, Decreased UE Strength, Impaired Funct Balance, Impaired I ADL's, Impaired Self-Care Skills Discharge Recommendations Plan/Recommendations: Continue POC Treatment Plan/Plan of Care Patient would benefit from OT for education, treatment and training to promote independence in ADL's, mobility, safety and/or upper extremity function for ADL's. Plan of Care: ADL Retraining, Functional Mobility, UE Funct Exercise/Act Treatment Duration: Jul 21, 2020 Frequency: 5 times per week Estimated Hrs Per Day: .25 hour per day Rehab Potential: Fair Time/GCodes Start Time: 14:15 Stop Time: 14:40 Total Time Billed (hr/min): 25 Billed Treatment Time 0021-7397 OT evaluation, [id number] OT/PT cotreat 1, EVM (10'), ADL (15') JORDAN HILL OT Jul 07, 2020 15:11
--- NOTE | 2020-07-07 15:30 | NUR ---
"RD ASSESSMENT PMHx: COPD; CAD; hypercholesterolemia; HTN; BPH; renal failure; chronic constipation; DM; PT INTERACTION: Note pt is currently in COVID isolation per chart review. Note all diet information for nutrition follow-up is per Josué RN or per chart review. Josué states current appetite appears good. Note avg PO intake 81% x4d, per chart review. Josué states some issues with constipation that he is aware of. Note last BM was 06/30, and pt currently on bowel regimen of colace BID, and miralax BID, per chart review. Est. kcal needs: 4797-0600 kcal | 20-25 kcal/kg Est. Pro needs: 66-82 g Pro | 0.8-1.0 g Pro/kg PES STATEMENT: Given current PO intake, no nutrition diagnosis at this time (NO-1.1). INTERVENTION: Continue with current diet order of CHO 60g/m 1snack diet. Will continue to follow and reassess as pt needs, intake, and status change. Fatou CARDENAS MS RD LD [phone] cell"
[2020-07-07 18:00] VITALS: BP 148/66
[2020-07-07] MEDS: PIPERACILLIN/TAZOBACTAM (BULK) 4.5 GM in NS (IVPB) 100 ML IV SCH (18:18)
[2020-07-07] MEDS: inSUlin ASPART (NovoLOG) 1 UNIT/0.01 ML (CHARGE PER UNIT) SC SCH ×2 (18:18→21:34)
[2020-07-07] MEDS ORDERED: BISACODYL 10 MG SUPP (DULCOLAX) PR NR (19:15)
[2020-07-07] MEDS: RT-ALBUTEROL INHALER HFA (VENTOLIN HFA) 18 GM IH SCH ×2 (19:43→23:07)
[2020-07-07] MEDS: doxAzosin 2 MG (CARDURA) TAB PO SCH (19:48)
[2020-07-07] MEDS: polyethylene glycoL POWDER 17 GM (MIRALAX) PACK PO SCH (19:49)
[2020-07-07] MEDS: APIXABAN 5 MG (ELIQUIS) TABLET PO SCH (19:49)
[2020-07-07] MEDS: DOCUSATE SODIUM 100 MG (COLACE) CAP PO SCH (19:49)
[2020-07-07] MEDS: HYDROcodone/APAP 5 MG/325 MG (LORTAB) TAB PO PRN (21:44)
[2020-07-08] MEDS: RT-ALBUTEROL INHALER HFA (VENTOLIN HFA) 18 GM IH SCH ×6 (02:52→22:52)
[2020-07-08] MEDS: PIPERACILLIN/TAZOBACTAM (BULK) 4.5 GM in NS (IVPB) 100 ML IV SCH (02:56)
[2020-07-08 05:40] VITALS: BP 113/56
[2020-07-08] MEDS: inSUlin ASPART (NovoLOG) 1 UNIT/0.01 ML (CHARGE PER UNIT) SC SCH ×4 (05:51→20:28)
[2020-07-08 07:11] LABS: CHLORIDE 97 MMOL/L (98-107); POTASSIUM 3.6 MMOL/L (3.6-5.0); SODIUM 136 MMOL/L (135-145)
[2020-07-08 07:12] LABS: CALCIUM 8.5 MG/DL (8.5-10.1)
[2020-07-08 07:13] LABS: GLUCOSE 121 MG/DL (70-105)
[2020-07-08 07:15] LABS: CARBON DIOXIDE 28 MMOL/L (21-32)
[2020-07-08] MEDS: KCL 20 MEQ TAB (K-DUR) PO SCH (07:16)
[2020-07-08 07:17] LABS: CREATININE SERUM 0.77 MG/DL (0.60-1.30); GFR ESTIMATED > 60
[2020-07-08 07:18] LABS: BUN/CREATININE RATIO 21
[2020-07-08] MEDS ORDERED: UBIDECARENONE 10 MG PO SCH (09:00)
[2020-07-08] MEDS: doxAzosin 2 MG (CARDURA) TAB PO SCH ×2 (09:11→20:30)
[2020-07-08] MEDS: APIXABAN 5 MG (ELIQUIS) TABLET PO SCH ×2 (09:12→20:30)
[2020-07-08] MEDS: CLOPIDOGREL 75 MG (PLAVIX) TABLET PO SCH (09:12)
[2020-07-08] MEDS: FAMOTIDINE 20 MG (PEPCID) TABLET PO SCH (09:12)
[2020-07-08] MEDS: DOCUSATE SODIUM 100 MG (COLACE) CAP PO SCH ×2 (09:12→20:30)
[2020-07-08] MEDS: polyethylene glycoL POWDER 17 GM (MIRALAX) PACK PO SCH ×2 (09:49→20:30)
[2020-07-08] MEDS: DIGOXIN 0.25 MG (LANOXIN) TAB PO SCH (09:49)
--- NOTE | 2020-07-08 12:26 | Physical Therapy Daily Note ---
PT Daily Note-Current Subjective Pt in bed, agreeable. RT present at beginning of treatment, agreeable to increase O2 during activity. Pt denies SOB but does desat with limited activity. Mental Status Patient Orientation: Person, Place, Time, Situation Attachments: Oxygen, Tellez Catheter, IV Transfers SCALE: Activities may be completed with or without assistive devices. 9-Lwpphelyry-ryfoift completes the activity by him/herself with no assistance from a helper. 5-Set-up or Clean-up Assistance-helper sets up or cleans up; patient completes activity. [place] assists only prior to or following the activity. 4-Supervision or Touching Assistance-helper provides verbal cues and/or touching/steadying and/or contact guard assistance as patient completes activity. Assistance may be provided throughout the activity or intermittently. 3-Partial/Moderate Assistance-helper does LESS THAN HALF the effort. [place] lifts, holds or supports trunk or limbs, but provides less than half the effort. 2-Substantial/Maximal Assistance-helper does MORE THAN HALF the effort. [place] lifts or holds trunk or limbs and provides more than half the effort. 6-Ratgvpsea-xcdrgk does ALL the effort. Patient does none of the effort to complete the activity. Or, the assistance of 2 or more helpers is required for the patient to complete the activity. If activity was not attempted, code reason: 7-Patient Refused. 9-Not Applicable-not attempted and the patient did not perform the activity before the current illness, exacerbation or injury. 10-Not Attempted due to Environmental Limitations-(lack of equipment, weather restraints, etc.). 88-Not Attempted due to Medical Conditions or Safety Concerns. Roll Left & Right (QC): 6 Lying to Sitting/Side of Bed(Q: 6 Sit to Stand (QC): 5 Chair/Myd-ia-Afmqh Xfer(QC): 5 Weight Bearing Right Lower Extremity: Right Full Weight Bearing Left Lower Extremity: Left Full Weight Bearing Gait Training Does the Patient Walk?: Yes Distance: 10 Walk 10 feet (QC): 5 Walk 50 ft with 2 Turns(QC): 88 Walk 150 ft (QC): 88 Walking 10ft/uneven surface-QC: 88 Gait Persons Needed: 1 Gait Assistive Device: FWW Pt ambulated 10' in room on 5L O2 but Pt O2 sats dropped to low 80's with extended seated recovery required to return to 89-90%. Wheelchair Training Does the Pt Use a Wheelchair?: No Type of Wheelchair: N/A Treatments Limited ambulation in room, limited due to O2 desaturation. Pt up in chair with sats at 89-90% on 5L. O2 returned to 3L, sats maintained at 89-90%. Communicated O2 levels to NA and nurse; Nurse plans to communicate with RT. Assessment Current Status: Poor Progress Pt requires limited assistance for functional mobility but demonstrates poor functional activity tolerance and desats this date with very limited activity, even with increased O2 provided with activity. PT Data Analysis Assistant Goals Data Analysis Assistant Goals PT Data Analysis Assistant Goals Time Frame: Jul 14, 2020 Roll Left & Right (QC): 6 Sit to Lying (QC): 6 Lying-Sitting on Side/Bed(QC): 6 Sit to Stand (QC): 6 Chair/Dxn-bs-Wbulb Xfer(QC): 6 Toilet Transfer (QC): 6 Car Transfer (QC): 9 Does the Patient Walk: Yes Walk 10 feet (QC): 6 Walk 50ft with 2 Turns (QC): 6 Walk 150 ft (QC): 6 Walking 10ft on Uneven Surface: 9 1 Step (curb) (QC): 6 4 Steps (QC): 6 12 Steps (QC): 88 Picking up an Object (QC): 9 Wheel 50 feet with 2 turns (QC: 9 Wheel 150 feet: 9 PT Plan Problem List Problem List: Activity Tolerance, Functional Strength, Safety, Balance, Gait, Transfer, Bed Mobility Treatment/Plan Treatment Plan: Continue Plan of Care Treatment Plan: Bed Mobility, Education, Functional Activity Rubens, Functional Strength, Gait, Safety, Therapeutic Exercise, Transfers Treatment Duration: Jul 14, 2020 Frequency: 6 times per week Estimated Hrs Per Day: .25 hour per day Patient and/or Family Agrees t: Yes Discharge Recommendations Barriers to Progress O2 desaturation Time/GCodes Time In: 1035 Time Out: 1058 Total Billed Treatment Time: 23 Total Billed Treatment 1, FA x 23' DANIA MOSQUERA DPYissel Jul 08, 2020 12:26
--- NOTE | 2020-07-08 12:30 | Progress Note - Hospitalist ---
Subjective HPI/CC On Admission Date Seen by Provider: Jul 08, 2020 Time Seen by Provider: 10:05 Subjective/Events-last exam he is feeling well today. He still feels a bit weak. He is not having any shortness of breath. He has no other complaints or concerns. Objective Exam Vital Signs Vital Signs Date Time Temp Pulse Resp B/P (MAP) Pulse Ox O2 Delivery O2 Flow Rate FiO2 07/08/20 10:45 90 Nasal Cannula 3.00 07/08/20 07:00 98 07/08/20 05:40 36.9 18 113/56 (75) 07/07/20 16:05 28 Capillary Refill : General Appearance: No Apparent Distress, WD/WN Respiratory: Lungs Clear, Normal Breath Sounds, No Respiratory Distress Cardiovascular: Regular Rate, Rhythm, No Edema, No Murmur Gastrointestinal: Normal Bowel Sounds, Non Tender, Soft Extremity: Normal Inspection, Non Tender, No Pedal Edema Neurologic/Psychiatric: Alert, Oriented x3, Normal Mood/Affect Skin: Normal Color, Warm/Dry Results/Procedures Lab Laboratory Tests 07/08/20 06:42 Patient resulted labs reviewed. Assessment/Plan Assessment and Plan Assess & Plan/Chief Complaint Acute respiratory failure due to COVID-19 COPD s/p decadron s/p remdesivir s/p convalescent plasma 1 s/p courses of Cefepime and Zosyn Supplemental oxygen as needed, improving MAT protocol CAD Continue Plavix AFib Continue Diltiazem, Digoxin, and Eliquis HTN BPH Continue Doxazosin Debility PT/OT DVT prophylaxis: already receiving therapeutic anticoagulation Pneumonia, resolved COPD exacerbation, resolved Diagnosis/Problems Diagnosis/Problems (1) Acute respiratory failure due to COVID-19 Status: Acute (2) COPD (chronic obstructive pulmonary disease) Status: Chronic (3) A-fib Status: Chronic (4) CAD (coronary artery disease) Status: Chronic (5) BPH (benign prostatic hyperplasia) Status: Chronic (6) PNA (pneumonia) Status: Resolved Resolution Date/Time: 07/08/20 @ 12:29 (7) Debility Status: Acute EFREN ESTRADA MD Jul 08, 2020 12:30
[2020-07-08 17:30] VITALS: BP 109/55
[2020-07-08] MEDS: HYDROcodone/APAP 5 MG/325 MG (LORTAB) TAB PO PRN (20:30)
[2020-07-09] MEDS: RT-ALBUTEROL INHALER HFA (VENTOLIN HFA) 18 GM IH SCH ×6 (02:55→22:34)
[2020-07-09] MEDS: HYDROcodone/APAP 5 MG/325 MG (LORTAB) TAB PO PRN ×2 (05:52→21:11)
[2020-07-09 06:20] LABS: CHLORIDE 97 MMOL/L (98-107); POTASSIUM 3.9 MMOL/L (3.6-5.0); SODIUM 134 MMOL/L (135-145)
[2020-07-09 06:21] LABS: CALCIUM 8.5 MG/DL (8.5-10.1)
[2020-07-09 06:22] LABS: GLUCOSE 105 MG/DL (70-105)
[2020-07-09 06:23] LABS: CARBON DIOXIDE 28 MMOL/L (21-32)
[2020-07-09 06:26] LABS: CREATININE SERUM 0.76 MG/DL (0.60-1.30); GFR ESTIMATED > 60
[2020-07-09 06:27] LABS: BUN/CREATININE RATIO 17
[2020-07-09 06:28] LABS: MAGNESIUM 2.1 MG/DL (1.6-2.4)
[2020-07-09] MEDS: inSUlin ASPART (NovoLOG) 1 UNIT/0.01 ML (CHARGE PER UNIT) SC SCH ×4 (06:28→21:07)
[2020-07-09] MEDS: KCL 20 MEQ TAB (K-DUR) PO SCH (06:28)
[2020-07-09] MEDS: DIGOXIN 0.25 MG (LANOXIN) TAB PO SCH (08:15)
[2020-07-09] MEDS: CLOPIDOGREL 75 MG (PLAVIX) TABLET PO SCH (08:15)
[2020-07-09] MEDS: APIXABAN 5 MG (ELIQUIS) TABLET PO SCH ×2 (08:15→21:07)
[2020-07-09] MEDS: DOCUSATE SODIUM 100 MG (COLACE) CAP PO SCH ×2 (08:15→21:07)
[2020-07-09] MEDS: polyethylene glycoL POWDER 17 GM (MIRALAX) PACK PO SCH ×2 (08:16→21:07)
[2020-07-09] MEDS: doxAzosin 2 MG (CARDURA) TAB PO SCH ×2 (08:16→21:07)
[2020-07-09] MEDS: FAMOTIDINE 20 MG (PEPCID) TABLET PO SCH (08:16)
--- NOTE | 2020-07-09 15:21 | NUR ---
PATIENT WAS ON 4 L/M OXYGEN SAT WAS 92% PATIENT WAS THEN PLACED ON ROOM AIR FOR 15 MIN SAT DROPPED TO 74% PATIENT WAS PLACED BACK ON OXYGEN AT 4 L/M SAT RETURNED TO 90% WOULD RECOMMEND 4-6 L/M Addendum: 07/09/20 at 1522 by ELAINE LACEY RT Amended: Links added.
--- NOTE | 2020-07-09 15:36 | NUR ---
BART DISCONTINUED, TOLERATED WELL. IS STARTING FLOMAX 0.4MG DAILY Addendum: 07/09/20 at 1758 by BRAULIO HEIN RN DR. ESTRADA NOTIFIED THIS [facility] THAT PATIENT IS ALREADY TAKING DOXAZOSIN, WHICH SHOULD HAVE THE SAME BENEFICIAL EFFECTS OF FLOMAX.
[2020-07-09] MEDS ORDERED: TAMSULOSIN 0.4 MG (FLOMAX) CAP PO SCH ×2 (18:00)
[2020-07-09 18:04] VITALS: BP 157/73
[2020-07-10] MEDS: RT-ALBUTEROL INHALER HFA (VENTOLIN HFA) 18 GM IH SCH ×6 (04:06→21:43)
[2020-07-10] MEDS: HYDROcodone/APAP 5 MG/325 MG (LORTAB) TAB PO PRN ×2 (04:24→21:08)
[2020-07-10] MEDS: inSUlin ASPART (NovoLOG) 1 UNIT/0.01 ML (CHARGE PER UNIT) SC SCH ×4 (06:17→21:08)
[2020-07-10 06:19] VITALS: BP 128/68
[2020-07-10 06:34] LABS: CHLORIDE 99 MMOL/L (98-107); SODIUM 135 MMOL/L (135-145)
[2020-07-10 06:35] LABS: CALCIUM 8.6 MG/DL (8.5-10.1)
[2020-07-10 06:36] LABS: GLUCOSE 143 MG/DL (70-105)
[2020-07-10 06:37] LABS: CARBON DIOXIDE 27 MMOL/L (21-32)
[2020-07-10 06:40] LABS: CREATININE SERUM 0.77 MG/DL (0.60-1.30); GFR ESTIMATED > 60
[2020-07-10 06:41] LABS: BUN/CREATININE RATIO 17
[2020-07-10] MEDS: KCL 20 MEQ TAB (K-DUR) PO SCH (06:42)
[2020-07-10] MEDS: CLOPIDOGREL 75 MG (PLAVIX) TABLET PO SCH (08:39)
[2020-07-10] MEDS: doxAzosin 2 MG (CARDURA) TAB PO SCH ×2 (08:39→21:08)
[2020-07-10] MEDS: DOCUSATE SODIUM 100 MG (COLACE) CAP PO SCH ×2 (08:39→21:09)
[2020-07-10] MEDS: polyethylene glycoL POWDER 17 GM (MIRALAX) PACK PO SCH ×2 (08:39→21:03)
[2020-07-10] MEDS: FAMOTIDINE 20 MG (PEPCID) TABLET PO SCH (08:39)
[2020-07-10] MEDS: APIXABAN 5 MG (ELIQUIS) TABLET PO SCH ×2 (08:39→21:09)
[2020-07-10] MEDS: DIGOXIN 0.25 MG (LANOXIN) TAB PO SCH (08:39)
--- NOTE | 2020-07-10 12:14 | Occupational Ther Daily Note ---
OT Current Status-Daily Note Subjective Pt alert, sitting EOB. Pt frustrated that his discharge is not today. Pt agrees to therapy. Mental Status/Objective Patient Orientation: Person, Place, Time, Situation Attachments: Oxygen ADL-Treatment Pt declines shower or ADLs. Pt states that he is able to complete all ADLs in room independently. Pt states that he was washed up last night and did not need bathing today. Therapy Code Descriptions/Definitions Functional [place] Measure: 0=Not Assessed/NA 4=Minimal Assistance 1=Total Assistance 5=Supervision or Setup 2=Maximal Assistance 6=Modified [place] 3=Moderate Assistance 7=Complete IndependenceSCALE: Activities may be completed with or without assistive devices. 8-Xtgtvtecek-hybnkxj completes the activity by him/herself with no assistance from a helper. 5-Set-up or Clean-up Assistance-helper sets up or cleans up; patient completes activity. [place] assists only prior to or following the activity. 4-Supervision or Touching Assistance-helper provides verbal cues and/or touching/steadying and/or contact guard assistance as patient completes activity. Assistance may be provided throughout the activity or intermittently. 3-Partial/Moderate Assistance-helper does LESS THAN HALF the effort. [place] lifts, holds or supports trunk or limbs, but provides less than half the effort. 2-Substantial/Maximal Assistance-helper does MORE THAN HALF the effort. [place] lifts or holds trunk or limbs and provides more than half the effort. 8-Tfrzzbnmp-adszum does ALL the effort. Patient does none of the effort to complete the activity. Or, the assistance of 2 or more helpers is required for the patient to complete the activity. If activity was not attempted, code reason: 7-Patient Refused. 9-Not Applicable-not attempted and the patient did not perform the activity before the current illness, exacerbation or injury. 10-Not Attempted due to Environmental Limitations-(lack of equipment, weather restraints, etc.). 88-Not Attempted due to Medical Conditions or Safety Concerns. Other Treatment Pt completed 2 sets 10 reps of 3 exercises to increase strength for daily functional tasks. Pt tolerated first set well then became fatigued with 2nd set though no SOA noted throughout treatment though did require recovery breaks between each exercise. After session, pt sitting EOB with call light/phone in reach. Requested chocolate icecream, reported to nrsg. All needs met in room. OT Usp Goals Optimization Engineer Goals Time Frame: Jul 21, 2020 Eating (QC): 6 Oral Hygiene (QC): 6 Toileting Hygiene (QC): 6 Shower/Bathe Self (QC): 6 Upper Body Dressing (QC): 6 Lower Body Dressing (QC): 6 On/Off Footwear (QC): 6 Additional Goals: 1-Demonstrate ADL Tasks, 2-Verbalize Understanding, 3- ImproveStrength/Rubens 1=Demonstrate adherence to instructed precautions during ADL tasks. 2=Patient will verbalize/demonstrate understanding of assistive devices/modifications for ADL. 3=Patient will improve strength/tolerance for activity to enable patient to perform ADL's. OT Education/Plan Problem List/Assessment Assessment: Decreased Activ Tolerance, Decreased UE Strength Discharge Recommendations Plan/Recommendations: Continue POC Treatment Plan/Plan of Care Patient would benefit from OT for education, treatment and training to promote independence in ADL's, mobility, safety and/or upper extremity function for ADL's. Plan of Care: ADL Retraining, Functional Mobility, UE Funct Exercise/Act Treatment Duration: Jul 21, 2020 Frequency: 5 times per week Estimated Hrs Per Day: .25 hour per day Rehab Potential: Fair Time/GCodes Start Time: 11:05 Stop Time: 11:20 Total Time Billed (hr/min): 15 Billed Treatment Time 1 visit-EX 1 (15 min) LO KAMARA Jul 10, 2020 12:14
--- NOTE | 2020-07-10 13:01 | Progress Note - Hospitalist ---
Subjective HPI/CC On Admission Date Seen by Provider: Jul 10, 2020 Time Seen by Provider: 12:56 Subjective/Events-last exam Pt reports feeling well. Down to 3.5lpm this morning. He is hopeful for discharge soon. Received a note to call his daughter. I have attempted to call 3x and left message. No answer. Objective Exam Vital Signs Vital Signs Date Time Temp Pulse Resp B/P (MAP) Pulse Ox O2 Delivery O2 Flow Rate FiO2 07/10/20 11:49 97 Nasal Cannula 4.00 07/10/20 06:19 36.6 84 18 128/68 (88) 07/07/20 16:05 28 Capillary Refill : Less Than 3 Seconds General Appearance: No Apparent Distress, WD/WN Respiratory: Lungs Clear, No Accessory Muscle Use, Other (on 3.5lpm) Cardiovascular: Regular Rate, Rhythm, No Murmur Neurologic/Psychiatric: Alert, Oriented x3 Results/Procedures Lab Laboratory Tests 07/10/20 06:03 Patient resulted labs reviewed. Assessment/Plan Assessment and Plan Assess & Plan/Chief Complaint Acute respiratory failure due to COVID-19 COPD s/p decadron s/p remdesivir s/p convalescent plasma 1 s/p courses of Cefepime and Zosyn Supplemental oxygen as needed, improving MAT protocol Hopeful to DC home tomorrow if stable CAD Continue Plavix AFib Continue Diltiazem, Digoxin, and Eliquis HTN BPH Continue Doxazosin Debility PT/OT DVT prophylaxis: already receiving therapeutic anticoagulation Pneumonia, resolved COPD exacerbation, resolved CHETAN LAWRENCE MD Jul 10, 2020 13:01
--- NOTE | 2020-07-10 13:57 | Physical Therapy Daily Note ---
PT Daily Note-Current Subjective Patient reports frustration with not going home today. He hopes to go home tomorrow. Agrees to PT. Mental Status Patient Orientation: Normal For Age Attachments: Oxygen (4L NC HF) Transfers SCALE: Activities may be completed with or without assistive devices. 1-Xbobbdlota-shurizp completes the activity by him/herself with no assistance from a helper. 5-Set-up or Clean-up Assistance-helper sets up or cleans up; patient completes activity. [place] assists only prior to or following the activity. 4-Supervision or Touching Assistance-helper provides verbal cues and/or touching/steadying and/or contact guard assistance as patient completes activity. Assistance may be provided throughout the activity or intermittently. 3-Partial/Moderate Assistance-helper does LESS THAN HALF the effort. [place] lifts, holds or supports trunk or limbs, but provides less than half the effort. 2-Substantial/Maximal Assistance-helper does MORE THAN HALF the effort. [place] lifts or holds trunk or limbs and provides more than half the effort. 3-Ldywpawek-vmgkfm does ALL the effort. Patient does none of the effort to complete the activity. Or, the assistance of 2 or more helpers is required for the patient to complete the activity. If activity was not attempted, code reason: 7-Patient Refused. 9-Not Applicable-not attempted and the patient did not perform the activity before the current illness, exacerbation or injury. 10-Not Attempted due to Environmental Limitations-(lack of equipment, weather restraints, etc.). 88-Not Attempted due to Medical Conditions or Safety Concerns. Sit to Lying (QC): 5 Lying to Sitting/Side of Bed(Q: 5 Sit to Stand (QC): 5 Weight Bearing Right Lower Extremity: Right Full Weight Bearing Left Lower Extremity: Left Full Weight Bearing Gait Training Does the Patient Walk?: Yes Distance: 150' Walk 10 feet (QC): 5 Walk 50 ft with 2 Turns(QC): 5 Walk 150 ft (QC): 5 Gait Assistive Device: FWW trunk flexed posture/slow, steady gait sequence Exercises Seated Therapy Exercises: Ankle pumps, Long arc quads, Hip flexion Seated Reps: 15 Assessment No SOA with activity with SAO2 >90% on 4L with activity. Patient improved with gross motor skill. PT Skilled Nursing Goals Skilled Nursing Goals PT Skilled Nursing Goals Time Frame: Jul 14, 2020 Roll Left & Right (QC): 6 Sit to Lying (QC): 6 Lying-Sitting on Side/Bed(QC): 6 Sit to Stand (QC): 6 Chair/Yke-wn-Tgdst Xfer(QC): 6 Toilet Transfer (QC): 6 Car Transfer (QC): 9 Does the Patient Walk: Yes Walk 10 feet (QC): 6 Walk 50ft with 2 Turns (QC): 6 Walk 150 ft (QC): 6 Walking 10ft on Uneven Surface: 9 1 Step (curb) (QC): 6 4 Steps (QC): 6 12 Steps (QC): 88 Picking up an Object (QC): 9 Wheel 50 feet with 2 turns (QC: 9 Wheel 150 feet: 9 PT Plan Treatment/Plan Treatment Plan: Continue Plan of Care Treatment Plan: Bed Mobility, Education, Functional Activity Rubens, Functional Strength, Gait, Safety, Therapeutic Exercise, Transfers Treatment Duration: Jul 14, 2020 Frequency: 6 times per week Estimated Hrs Per Day: .25 hour per day Patient and/or Family Agrees t: Yes Time/GCodes Time In: 1325 Time Out: 1341 Total Billed Treatment Time: 16 Total Billed Treatment 1 visit FA 16 min CHARLIE SONI PT Jul 10, 2020 13:57
[2020-07-10 18:59] VITALS: BP 142/78
[2020-07-11] MEDS: RT-ALBUTEROL INHALER HFA (VENTOLIN HFA) 18 GM IH SCH ×2 (01:59→08:04)
[2020-07-11 04:52] LABS: CHLORIDE 99 MMOL/L (98-107); POTASSIUM 3.9 MMOL/L (3.6-5.0); SODIUM 134 MMOL/L (135-145)
[2020-07-11 04:53] LABS: CALCIUM 8.5 MG/DL (8.5-10.1); GLUCOSE 128 MG/DL (70-105)
[2020-07-11 04:55] LABS: CARBON DIOXIDE 27 MMOL/L (21-32)
[2020-07-11 04:57] LABS: CREATININE SERUM 0.76 MG/DL (0.60-1.30); GFR ESTIMATED > 60
[2020-07-11 04:58] LABS: BUN/CREATININE RATIO 14
[2020-07-11] MEDS: KCL 20 MEQ TAB (K-DUR) PO SCH (05:51)
[2020-07-11] MEDS: inSUlin ASPART (NovoLOG) 1 UNIT/0.01 ML (CHARGE PER UNIT) SC SCH ×2 (05:51→11:36)
[2020-07-11 06:25] VITALS: BP 137/70
--- NOTE | 2020-07-11 07:06 | NUR ---
Pt complained that he is unable to void this AM. Bladder scanned pt = [address] Crawford. Received order to straight cath pt. Straight cath done = 580 ml out. Repeat bladder scan post straight cath = 0 ml.
[2020-07-11] MEDS: FAMOTIDINE 20 MG (PEPCID) TABLET PO SCH (09:11)
[2020-07-11] MEDS: DOCUSATE SODIUM 100 MG (COLACE) CAP PO SCH (09:11)
[2020-07-11] MEDS: DIGOXIN 0.25 MG (LANOXIN) TAB PO SCH (09:11)
[2020-07-11] MEDS: polyethylene glycoL POWDER 17 GM (MIRALAX) PACK PO SCH (09:11)
[2020-07-11] MEDS: doxAzosin 2 MG (CARDURA) TAB PO SCH (09:11)
[2020-07-11] MEDS: APIXABAN 5 MG (ELIQUIS) TABLET PO SCH (09:11)
[2020-07-11] MEDS: CLOPIDOGREL 75 MG (PLAVIX) TABLET PO SCH (09:11)
--- NOTE | 2020-07-11 09:18 | Discharge Summary ---
Diagnosis/Chief Complaint Date of Admission Jul 07, 2020 at 13:48 Date of Discharge Discharge Date: Jul 11, 2020 Primary Care No,Local Physician Discharge Diagnosis (1) Acute respiratory failure due to COVID-19 Status: Acute (2) COPD (chronic obstructive pulmonary disease) Status: Chronic (3) A-fib Status: Chronic (4) CAD (coronary artery disease) Status: Chronic (5) BPH (benign prostatic hyperplasia) Status: Chronic (6) PNA (pneumonia) Status: Resolved (7) Debility Status: Acute Discharge Summary Discharge Physical Exam Allergies: Coded Allergies: Iodine and Iodide Containing Produc (Verified Allergy, Unknown, 06/22/20) itching and swelling Vitals & I&Os Vital Signs Date Time Temp Pulse Resp B/P (MAP) Pulse Ox O2 Delivery O2 Flow Rate FiO2 07/11/20 09:00 97 High Flow N/C 3.50 07/11/20 06:25 36.9 101 18 137/70 (92) 07/07/20 16:05 28 General Appearance: No Apparent Distress, WD/WN Respiratory: Lungs Clear, No Accessory Muscle Use Cardiovascular: Regular Rate, Rhythm, No Murmur Neurologic/Psychiatric: Alert, Oriented x3 Hospital Course Pt was admitted to swing bed due to acute hypoxic respiratory failure from COVID19. He was requiring Vapotherm on admission and needed skilled therapy to regain strength after lengthy admission due to COVID19. He did well and was able to be titrated down to nasal cannula. Home oxygen was arranged as was home health. He was discharged home in stable and improved condition to follow up this hospital stay with his PCP who will be Dr Espinoza. Labs (last 24 hrs) Laboratory Tests 07/10/20 15:16: Glucometer 150H 07/10/20 21:03: Glucometer 220H 07/11/20 04:20: Sodium Level 134L, Potassium Level 3.9, Chloride Level 99, Carbon Dioxide Level 27, Anion Gap 8, Blood Urea Nitrogen 11, Creatinine 0.76, Estimat Glomerular Filtration Rate > 60, BUN/Creatinine Ratio 14, Glucose Level 128H, Calcium Level 8.5 07/11/20 11:30: Glucometer 190H Patient resulted labs reviewed. Pending Labs Laboratory Tests 07/11/20 11:30: Glucometer 190 Discussion & Recommendations Discharge Planning: >30 minutes discharge planning Discharge Home Medications: Active Scripts Active Reported Ocuvite with Lutein Tablet (Vit A,C & E/Lutein/Minerals) 1 Each Tablet 1 Each PO DAILY Co Q-10 (Ubidecarenone) 10 Mg Capsule 10 Mg PO DAILY Metformin HCl 500 Mg Tablet 500 Mg PO DAILY PRN Gabapentin 100 Mg Capsule 100-200 Mg PO Q8H PRN Doxazosin Mesylate 4 Mg Tablet 2 Mg PO BID TAKES OF A 4MG TAB Docusate Sodium 100 Mg Tablet 100 Mg PO BID Tiazac (Diltiazem HCl) 240 Mg Capsule.er 240 Mg PO DAILY Digoxin 250 Mcg Tablet 250 Mcg PO DAILY Eliquis (Apixaban) 5 Mg Tablet 5 Mg PO BID Ventolin Hfa (Albuterol Sulfate) 1 Puff Puff 2 Puff INH QID PRN Clopidogrel (Clopidogrel Bisulfate) 75 Mg Tablet 75 Mg PO DAILY Instructions to patient/family Please see electronic discharge instructions given to patient. CHETAN LAWRENCE MD Jul 11, 2020 09:18
--- NOTE | 2020-07-11 09:39 | Therapy Team Discharge Summary ---
Therapy Discharge Summary Discharge Recommendations Date of Discharge Physical Therapy Per physician's report, patient will dismiss to home on this date with family and home health intervention. Patient will dismiss with home O2 as well. Patient is currently modified independent with all gross motor skills and will continue to receive home PT per report. Patient has had extended hospital stay due to Covid 19. Continues to display fair endurance with gross motor skills. Ambulates with FWW 150' in room without difficulty or SOA. Patient is highly motivated with dismissal to home. PT educated patient on importance of safety awareness and to monitor SAO2 with activity. Patient voices understanding. Goals address but not attained. Occupational Therapy Decreased Activ Tolerance, Decreased UE Strength PT Prison Goals Prison Goals PT Metal Roofer Goals Time Frame: Jul 14, 2020 Roll Left to Right (QC): 6 Sit to Lying (QC): 6 Lying-Sitting on Side/Bed(QC): 6 Sit to Stand (QC): 6 Chair/Fkr-be-Mvefs Xfer(QC): 6 Car Transfer (QC): 9 Does the Patient Walk: Yes Walk 10 feet (QC): 6 Walk 10ft-Uneven Surface(QC): 9 Walk 50ft with 2 Turns (QC): 6 Walk 150 ft (QC): 6 Wheel 50 feet with 2 turns (QC: 9 1 Step (curb) (QC): 6 4 Steps (QC): 6 12 Steps (QC): 88 Picking up an Object (QC): 9 OT Metal Roofer Goals Metal Roofer Goals Time Frame: Jul 21, 2020 Eating (QC): 6 Oral Hygiene (QC): 6 Shower/Bathe Self (QC): 6 Upper Body Dressing (QC): 6 Lower Body Dressing (QC): 6 On/Off Footwear (QC): 6 Toileting Hygiene (QC): 6 Toilet/Commode Transfer (QC): 6 Additional Goals: 1-Demonstrate ADL Tasks, 2-Verbalize Understanding, 3- ImproveStrength/Rubens 1=Demonstrate adherence to instructed precautions during ADL tasks. 2=Patient will verbalize/demonstrate understanding of assistive devices/modifications for ADL. 3=Patient will improve strength/tolerance for activity to enable patient to perform ADL's. CHARLIE SONI PT Jul 11, 2020 09:39
--- NOTE | 2020-07-11 09:53 | NUR ---
Notice of Medicare Non Coverage presented (via phone), reviewed with patient and he voiced no intentions to appeal. Placed copy in patient chart. Patient deny any needs or further questions at this time.
--- NOTE | 2020-07-11 10:17 | NUR ---
SALMA/BHAVANA finalized discharge. Plan: The patent will discharge home today 07/11 with home health and a new oxygen need. DME: The patient will use [facility] for his oxygen per the patient and families choice. SALMA/BHAVANA spoke with Miguel at the agency and informed her of patient's discharge for today. She verbalized understanding and will have it delivered to the hospital. Patient qualified for 5L continuous. Home Health: CM/SS contacted the patient's Monse and daughter Ashely to discuss home health agencies. According to Ashely, they have used home health before and believe it is [facility]. Ashely reports they would like to use them again. The patients primary care physician has retired and they are currently working on getting him established with Dr. Espinoza. CM/SS spoke with Dr. Espinoza and she is agreeable with following home health orders until he is established with her. SALMA/SS contacted Rosamaria and made a referral to [facility]. SALMA/BHAVANA explained the services and process of home health to Monse and Ashely. They both verbalized understanding. No further needs at this time.
--- NOTE | 2020-07-11 15:28 | Therapy Team Discharge Summary ---
Therapy Discharge Summary Discharge Recommendations Date of Discharge Jul 11, 2020 at 11:55 Occupational Therapy Pt admitted to [facility] with acute respiratory failure s/p covid-19. At OF, pt was independent with all ADLs and functional mobility. Upon initial evaluation, pt was independent with eating, required min A oral care, CGA showering, CGA lower body dressing, SBA footwear and CGA toileting. OT txs focused on increasing BUE strength and functional endurance as pt declined ADLS in follow up txs, stating he is able to complete ADLS independently in his room. Pt only met LTG of independent level with eating due to declining further ADLs. Pt discharged from facility, d/c from OT. Decreased Activ Tolerance, Decreased UE Strength PT Prison Goals Prison Goals PT Prison Goals Time Frame: Jul 14, 2020 Roll Left to Right (QC): 6 Sit to Lying (QC): 6 Lying-Sitting on Side/Bed(QC): 6 Sit to Stand (QC): 6 Chair/Xsb-ou-Vaaju Xfer(QC): 6 Car Transfer (QC): 9 Does the Patient Walk: Yes Walk 10 feet (QC): 6 Walk 10ft-Uneven Surface(QC): 9 Walk 50ft with 2 Turns (QC): 6 Walk 150 ft (QC): 6 Wheel 50 feet with 2 turns (QC: 9 1 Step (curb) (QC): 6 4 Steps (QC): 6 12 Steps (QC): 88 Picking up an Object (QC): 9 OT Naval Architect Goals Prison Goals Time Frame: Jul 21, 2020 Eating (QC): 6 (met) Oral Hygiene (QC): 6 (not met) Shower/Bathe Self (QC): 6 (not met) Upper Body Dressing (QC): 6 (not met) Lower Body Dressing (QC): 6 (not met) On/Off Footwear (QC): 6 (not met) Toileting Hygiene (QC): 6 (not met) Toilet/Commode Transfer (QC): 6 (not met) Additional Goals: 1-Demonstrate ADL Tasks, 2-Verbalize Understanding, 3- ImproveStrength/Rubens 1=Demonstrate adherence to instructed precautions during ADL tasks. 2=Patient will verbalize/demonstrate understanding of assistive devices/modifications for ADL. 3=Patient will improve strength/tolerance for activity to enable patient to perform ADL's. JORDAN HILL OT Jul 11, 2020 15:28
--- NOTE | 2020-07-12 15:37 | Therapy Team Discharge Summary ---
Therapy Discharge Summary Discharge Recommendations Date of Discharge Jul 11, 2020 at 11:55 Physical Therapy This patient admitted to [facility] status post acute hospital stay due to respiratory failure/post COVID. His PLOF was indep with mobiltiy. Upon initial evaluation, he was min to [facility] bed mobiltiy and transfers and able to walk 50 ft with CGA. Treatment has focused on functional strength, balance and activity tolerance to promote improved functional mobiltiy. He did make good progress and at discharge he was set up assist with all mobility. Will DC from PT due to DC from facility. Occupational Therapy Decreased Activ Tolerance, Decreased UE Strength PT Assisted Goals Assisted Goals PT Dog Pound Attendant Goals Time Frame: Jul 14, 2020 Roll Left to Right (QC): 6 Sit to Lying (QC): 6 Lying-Sitting on Side/Bed(QC): 6 Sit to Stand (QC): 6 Chair/Nnz-mc-Vrvup Xfer(QC): 6 Car Transfer (QC): 9 Does the Patient Walk: Yes Walk 10 feet (QC): 6 Walk 10ft-Uneven Surface(QC): 9 Walk 50ft with 2 Turns (QC): 6 Walk 150 ft (QC): 6 Wheel 50 feet with 2 turns (QC: 9 1 Step (curb) (QC): 6 4 Steps (QC): 6 12 Steps (QC): 88 Picking up an Object (QC): 9 Goals not fully met; pt is set up assist with functional mobility. OT Assisted Goals Dog Pound Attendant Goals Time Frame: Jul 21, 2020 Eating (QC): 6 (met) Oral Hygiene (QC): 6 (not met) Shower/Bathe Self (QC): 6 (not met) Upper Body Dressing (QC): 6 (not met) Lower Body Dressing (QC): 6 (not met) On/Off Footwear (QC): 6 (not met) Toileting Hygiene (QC): 6 (not met) Toilet/Commode Transfer (QC): 6 (not met) Additional Goals: 1-Demonstrate ADL Tasks, 2-Verbalize Understanding, 3- ImproveStrength/Rubens 1=Demonstrate adherence to instructed precautions during ADL tasks. 2=Patient will verbalize/demonstrate understanding of assistive devices/modifications for ADL. 3=Patient will improve strength/tolerance for activity to enable patient to perform ADL's. LO SHORT PT Jul 12, 2020 15:37
== END 2020-07-11 11:55 | disposition home health service (06) | DRG 189 ==
LOC: 4TH 13:48
PROVIDERS: ADMIT Internal Medicine; ATTEND Internal Medicine
DX: J96.00 Acute respiratory failure, unspecified whether with hypoxia or hypercapnia (principal); B94.8 Sequelae of other specified infectious and parasitic diseases; J44.9 Chronic obstructive pulmonary disease, unspecified; I25.10 Atherosclerotic heart disease of native coronary artery without angina pectoris; I48.91 Unspecified atrial fibrillation; I10 Essential (primary) hypertension; N40.0 Benign prostatic hyperplasia without lower urinary tract symptoms; Z79.01 Long term (current) use of anticoagulants; Z87.01 Personal history of pneumonia (recurrent)
CPT/HCPCS: 36415; 80048; 82962; 83735; 94640; 94760; 94761

== ENCOUNTER 2020-08-07 10:44 | Outpatient (CLI) | payer MEDICARE | END 2020-08-07 11:40 | disposition home or self-care (01) | LOC: SLEEP 10:44 | PROVIDERS: ATTEND Family Medicine | DX: G47.10 Hypersomnia, unspecified (principal) | CPT/HCPCS: G0399 ==

== ENCOUNTER → 2020-09-07 | Outpatient (CLI) | payer MEDICARE | LOC: CARD 09:00 | PROVIDERS: ATTEND Nurse Practitioner Family | DX: I08.0 Rheumatic disorders of both mitral and aortic valves (principal) | CPT/HCPCS: 93306 ==

== ENCOUNTER → 2021-07-05 | Outpatient (CLI) | payer MEDICARE ==
[~2021-07-05] MED LIST changes: -POTA10TA36 PO; +POTA10TA37 PO
== END ==
LOC: LABNPT 08:00
PROVIDERS: ATTEND Family Medicine
DX: U07.1 COVID-19 (principal)
CPT/HCPCS: 87635

== ENCOUNTER → 2021-10-17 | Outpatient (CLI) | payer MEDICARE ==
[~2021-10-17] MED LIST changes: +OMEP20TA56 PO; -OMEP20TA7 PO
== END ==
LOC: CARD 14:00
PROVIDERS: ATTEND Nurse Practitioner Family
DX: I35.0 Nonrheumatic aortic (valve) stenosis (principal); I51.7 Cardiomegaly
CPT/HCPCS: 93306

== ENCOUNTER → 2023-02-26 | Outpatient (CLI) | payer MEDICARE ==
[~2023-02-26] MED LIST changes: -LOSA100T3 PO; +LOSA100T4 PO; +POTA-177 PO; -POTA10TA37 PO; -TRIA1CAP4 PO; +TRIA1CAP84 PO
== END ==
LOC: CARD 10:41
PROVIDERS: ATTEND Nurse Practitioner Family
DX: I08.0 Rheumatic disorders of both mitral and aortic valves (principal); I25.5 Ischemic cardiomyopathy
CPT/HCPCS: 93306